=== PATIENT | male | born 1945 | race Hispanic/Latino ===

== ENCOUNTER → 2017-10-27 | Outpatient (CLI) | payer MEDICARE ==
[~2017-10-27] MED LIST: ADVAIR 250-501 EACH; ALLOPURINOL100 MG PO; ALLOPURINOL300 MG PO; CEFDINIR250 MG/5 M PO; CEFTRIAXONE SOD 1 GM VIAL ONE; COLCRYS0.6 MG PO; CRESTOR10 MG PO; DIGOXIN125 MCG PO; FISH OIL 1,0001 EAC2 PO; FUROSEMIDE40 MG PO; GLIPIZIDE5 MG PO; HYDROCHLOROTHIA25 MG PO; ISOSORBIDE MONO20 MG PO; JENTADUETO 2.51 EACH; LOSARTAN POTAS100 MG PO; LYRICA50 MG PO; METAXALONE800 MG PO; METOLAZONE5 MG PO; METOPROLOL TART50 MG PO; POTASSIUM CHLO10 ME1 PO; SERTRALINE HCL50 MG PO; TAMSULOSIN HCL0.4 MG PO; ULTRAM 50MG50 MG PO; XARELTO20 MG PO
[2017-10-27 10:28] LABS: BASOPHILS % 0.4 % (0.0-1.0); EOSINOPHILS # (AUTO) 0.2 (0.0-0.4); EOSINOPHILS % 2.2 % (0.0-6.0); HEMOGLOBIN 10.5 g/dL (14.0-18.0); LYMPHOCYTES # (AUTO) 1.8 (1.0-3.2); LYMPHOCYTES % 16.2 % (18.0-39.1); MEAN CORPUSCULAR HEMOGLOBIN 29.2 pg (28-32); MEAN CORPUSCULAR HGB CONC 32.8 g/dL (31-35); MEAN CORPUSCULAR VOLUME 89.1 fL (81-99); MONOCYTES # (AUTO) 1.1 (0.2-0.8); MONOCYTES % 9.5 % (4.4-11.3); NEUTROPHILS # (AUTO) 7.9 (2.1-6.9); NEUTROPHILS % 71.1 % (38.7-80.0); PLATELET COUNT 184 x10e3/uL (140-360); RED BLOOD COUNT 3.59 x10e6/uL (4.3-5.7); RED CELL DISTRIBUTION WIDTH 14.4 % (11.7-14.4)
[2017-10-27 10:47] LABS: ANION GAP 17.2 mmol/L (8-16); BLOOD UREA NITROGEN 19 mg/dL (7-26); BUN/CREATININE RATIO 19 (6-25); CALCIUM 9.7 mg/dL (8.4-10.2); CARBON DIOXIDE 28 mmol/L (22-29); CHLORIDE 101 mmol/L (98-107); CREATININE, SERUM 0.98 mg/dL (0.72-1.25); EST GLOMERULAR FILTRATION RATE > 60 ML/MIN (60-); GLUCOSE 152 mg/dL (74-118); POTASSIUM 4.2 mmol/L (3.5-5.1); SODIUM 142 mmol/L (136-145)
--- NOTE | 2017-10-27 11:18 | Diagnostic Imaging Report ---
PROCEDURE: Frontal and lateral views of the chest. COMPARISON: None. INDICATIONS: PRE OPERATIVE CHEST X-RAY FOR CIRCUMCISON FINDINGS: Lines/tubes: None. Lungs: The lungs are well inflated. Mild bibasilar atelectasis. A 1.8 cm nodular opacity is noted in the lung base on lateral view, possibly in the left lung base. There is no evidence of pneumonia or pulmonary edema. Pleura: There is no pleural effusion or pneumothorax. Heart and mediastinum: The heart and the mediastinum are normal. Aortic arch calcifications. Bones: No acute bony abnormality. Degenerative changes of the spine. Upper abdomen: No free air under the diaphragm. Abdominal aortic calcifications. IMPRESSION: No acute cardiopulmonary disease. A 1.8 cm nodular opacity in the lung base may represent a pulmonary nodule. Recommend further evaluation with chest CT without contrast. Dictated by: Kenny Ferreira M.D. on 10/27/2017 at 11:18 Electronically approved by: Kenny Ferreira M.D. on 10/27/2017 at 11:18
--- OUTSIDE RECORDS SUMMARY | 2017-11-02 09:26 | XMS REPORT ---
Author Author [facility] Address Unknown Phone Unavailable Care Team Providers Care Adjunct Faculty For Medical Terminology Name Role Phone WHITNEY BURKETT Unavailable Unavailable Problems This patient has no known problems. Allergies, Adverse Reactions, Alerts This patient has no known allergies or adverse reactions. Medications This patient has no known medications. Results Test Description Test Time Test Comments Text Results Atomic Results Result Comments CHEST 2 VIEWS [place] [address] Patient Name: SHIVANI STEWART MR #: [id number] : 1945 Age/Sex: 72/M Req #: [id number] [facility] Physician: Ordered by: WHITNEY BURKETT MD Report #: [id number] Location: OR Room/Bed: Procedure: [id number] DX/CHEST 2 VIEWS Exam Date: 10/27/17 Exam Time: 1025 REPORT STATUS: Signed PROCEDURE: Frontal and lateral views of the chest. COMPARISON: None. INDICATIONS: PRE OPERATIVE CHEST X-RAY FOR CIRCUMCISON FINDINGS: Lines/tubes: None. Lungs: The lungs are well inflated. Mild bibasilar atelectasis. A 1.8 cm nodular opacity is noted in the lung base on lateral view, possibly in the left lung base. There is no evidence of pneumonia or pulmonary edema. Pleura: There is no pleural effusion or pneumothorax. Heart and mediastinum: The heart and the mediastinum are normal. Aortic arch calcifications. Bones: No acute bony abnormality. Degenerative changes of the spine. Upper abdomen: No free air under the diaphragm. Abdominal aortic calcifications. IMPRESSION: No acute cardiopulmonary disease. A 1.8 cm nodular opacity in the lung base may represent a pulmonary nodule. Recommend further evaluation with chest CT without contrast. Dictated by: Kenny Garsia M.D. on 10/27/2017 at 11: 18 Electronically approved by: Kenny Garsia M.D. on 10/27/2017 at 11: 18 Dictated By: KENNY GARSIA MD [id number] Transcribed By: NAOMI on 10/27/17 1118 COPY TO: WHITNEY BURKETT MD
== END | disposition home or self-care (01) ==
LOC: RAD 05:00 → OR 11-02 09:24 → EDBD 11-02 11:00 → EDSTATUS 11-02 11:00
PROVIDERS: ATTEND Urology
DX: N47.1 Phimosis (principal); Z01.810 Encounter for preprocedural cardiovascular examination; Z01.812 Encounter for preprocedural laboratory examination; Z01.818 Encounter for other preprocedural examination
CPT/HCPCS: 36415; 71046; 80048; 82948; 85025; 93005; J0696

== ENCOUNTER 2017-11-02 11:12 | Inpatient (IN) | payer MEDICARE ==
[~2017-11-02] VITALS: Ht 170.2 cm; Wt 97.7 kg
[~2017-11-02 11:12] MED LIST changes: -CEFDINIR250 MG/5 M PO; -CEFTRIAXONE SOD 1 GM VIAL ONE; -FISH OIL 1,0001 EAC2 PO; -LYRICA50 MG PO; -POTASSIUM CHLO10 ME1 PO
[2017-11-02] MEDS ORDERED: SODIUM CHLORIDE 0.9% 500ML 500 ML IV STA ×2 (11:14→12:31)
[2017-11-02 11:26] LABS: BASOPHILS % 0.3 % (0.0-1.0); EOSINOPHILS # (AUTO) 0.4 (0.0-0.4); EOSINOPHILS % 2.9 % (0.0-6.0); HEMATOCRIT 35.1 % (38.2-49.6); HEMOGLOBIN 11.7 g/dL (14.0-18.0); LYMPHOCYTES # (AUTO) 1.8 (1.0-3.2); LYMPHOCYTES % 14.9 % (18.0-39.1); MEAN CORPUSCULAR HEMOGLOBIN 28.8 pg (28-32); MEAN CORPUSCULAR HGB CONC 33.3 g/dL (31-35); MEAN CORPUSCULAR VOLUME 86.5 fL (81-99); NEUTROPHILS % 73.4 % (38.7-80.0); PLATELET COUNT 292 x10e3/uL (140-360); RED BLOOD COUNT 4.06 x10e6/uL (4.3-5.7); RED CELL DISTRIBUTION WIDTH 14.2 % (11.7-14.4)
[2017-11-02 11:29] LABS: INR 1.24; PROTHROMBIN TIME 14.7 seconds (11.9-14.5)
[2017-11-02 11:30] LABS: PARTIAL THROMBOPLASTIN TIME 25.9 seconds (23.8-35.5)
[2017-11-02 11:38] LABS: ALBUMIN 3.5 g/dL (3.5-5.0); ANION GAP 16.2 mmol/L (8-16); CALCIUM 9.7 mg/dL (8.4-10.2); MAGNESIUM 1.3 MG/DL (1.3-2.1); POTASSIUM 4.2 mmol/L (3.5-5.1)
[2017-11-02 11:44] LABS: CREATINE KINASE MB 1.3 ng/mL (0-5.0)
--- NOTE | 2017-11-02 12:29 | Diagnostic Imaging Report ---
PROCEDURE: CHEST SINGLE (PORTABLE) COMPARISON: Patients [facility], DX, CHEST 2 VIEWS, 10/27/2017, 10:33. INDICATIONS: LOW BLOOD PRESSURE FINDINGS: LUNGS: No consolidations or edema. PLEURA: No effusions or pneumothorax. HEART \T\ MEDIASTINUM: The heart is within normal size-limits. BONES \T\ SOFT TISSUES: No acute findings. CONCLUSION: No acute thoracic abnormality. Darion Mederos D.O. Dictated by: Darion Mederos D.O. on 11/02/2017 at 12:23 Electronically approved by: Darion Mederos D.O. on 11/02/2017 at 12:29
[2017-11-02] MEDS ORDERED: ONDANSETRON HCL INJ 2 MG/ML VIAL IV PRN (13:30)
[2017-11-02 16:07] VITALS: BP 134/78
[2017-11-02] MEDS: SODIUM CHLORIDE 0.9% 1000ML 1,000 ML IV SCH (17:24)
[2017-11-02] MEDS ORDERED: METAXALONE 800 MG TAB PO PRN (17:45)
[2017-11-02] MEDS ORDERED: COLCHICINE 0.6 MG TAB PO PRN (17:45)
[2017-11-02] MEDS ORDERED: POTASSIUM CHLO10 ME1 PO (17:53)
[2017-11-02] MEDS ORDERED: LYRICA50 MG PO (17:53)
[2017-11-02] MEDS ORDERED: CEFDINIR250 MG/5 M PO (17:53)
[2017-11-02] MEDS ORDERED: DEXTROSE 50% SYRINGE 50 ML IV PRN (18:00)
[2017-11-02 18:08] VITALS: BP 134/78
--- NOTE | 2017-11-02 18:34 | Diagnostic Imaging Report ---
PROCEDURE:US RETROPERITONEAL ( KIDNEY ). COMPARISON:None. INDICATIONS:CKD TECHNIQUE: Wharton-scale and color sonographic images of the bilateral kidneys and bladder where obtained in transverse and longitudinal planes. FINDINGS: RIGHT KIDNEY: 10.7 x 5.0 x 5.1 cm, cortex 1.6 cm Cysts: None Solid masses: None Stones: None Hydronephrosis: None Echogenicity: Normal. LEFT KIDNEY: 12.2 x 5.6 x 4.7 cm, cortex 2.0 cm Cysts: None Solid masses: None Stones: None Hydronephrosis: None Echogenicity: Normal. Bladder: Normal. Prostate: 2.2 x 2.6 x 3.4 cm CONCLUSION: Normal kidneys. Dictated by: Amrik Alfonso M.D. on 11/02/2017 at 18:34 Electronically approved by: Amrik Alfonso M.D. on 11/02/2017 at 18:34
--- NOTE | 2017-11-02 18:43 | History and Physical ---
HISTORY OF PRESENT ILLNESS: A 72-year-old male with past medical history positive for chronic atrial fibrillation, chronic history of CHF, diabetes mellitus, chronic renal insufficiency. Came here to the hospital. Initially he was scheduled to have urological procedure by Dr. Gutierrez because of phimosis. Patient was hypotensive. The procedure had to be canceled. He was admitted to the emergency room and then he was found to be hypotensive. He was given IV fluids. He was in atrial fibrillation with rapid ventricular response. He was given beta blockers and heart rate was under control now, so patient is admitted to the hospital. REVIEW OF SYSTEMS: CARDIOVASCULAR: No chest pain or palpitation. RESPIRATORY: No shortness of breath and no cough. GASTROINTESTINAL: No nausea, vomiting or diarrhea. GENITOURINARY: No frequency or dysuria. ALLERGIES: PENICILLIN. SOCIAL HISTORY: He claims that he does not smoke and does not drink. PAST MEDICAL HISTORY: Chronic systolic CHF, chronic atrial fibrillation, diabetes mellitus type 2. Anemia of chronic disease secondary to chronic renal failure. PHYSICAL EXAMINATION: VITAL SIGNS: Blood pressure 134/78, temperature 95.5, heart rate 70 per minute, respirations 20 per minute, oxygen saturation 99%. HEART: Irregularly irregular heart rate. No murmur. No extra sounds. LUNGS: Clear bilaterally. ABDOMEN: Soft. EXTREMITIES: Show no evidence of cyanosis, edema or trauma. LABORATORY DATA: Blood work we have BMP sodium 137, potassium 4.2, chloride 97, CO2 28. BUN 54, creatinine 2.0. Glucose 240. On the CBC white blood count 12.2 hemoglobin 11.7, hematocrit 35.1, platelet count 202,000. PT 14.7. INR 1.24. PTT 25.9. AST 18, ALT 20. Total bilirubin 0.5, alkaline phosphatase 42. EKG showed atrial fibrillation with left anterior fascicular block. Inferior infarct which is an old one. There is no evidence of any ST segment elevation or depression. FINAL IMPRESSION: 1. Episode of hypotension which has resolved with IV fluids. 2. [id number] renal failure stage 3. 3. Chronic atrial fibrillation with rapid ventricular response. 4. Diabetes mellitus type 2 with chronic renal failure. 5. Acute anemia of chronic disease secondary to chronic renal insufficiency. 6. Chronic systolic congestive heart failure. PLAN OF TREATMENT: Continue current IV fluids. We are going to hold the Lasix and the Zaroxolyn for now. Continue holding the blood pressure medications as long as the systolic blood systolic blood pressure less than 110. Resume the rest of medications. We are going to hold the Xarelto because of the patient possibly going for the procedure. We are going to consult Dr. Amaya for cardiology, Dr. Erich Gutierrez for urology. Job#: [id number] KRISTIN
[2017-11-02 19:04] LABS: CREATINE KINASE MB 1.4 ng/mL (0-5.0)
[2017-11-02 20:00] VITALS: BP 130/62
[2017-11-02] MEDS: INSULIN REGULAR, HUMAN 100 UNIT/1 ML 3ML VIAL SQ SCH (20:42)
[2017-11-02] MEDS: SIMVASTATIN 40 MG TAB PO SCH (20:44)
[2017-11-02] MEDS: PREGABALIN 50 MG CAP PO SCH (20:44)
[2017-11-02] MEDS: CEFDINIR 300 MG CAP PO SCH (20:44)
--- NOTE | 2017-11-02 22:40 | Consultation ---
DATE OF CONSULTATION: November 02, 2017 CARDIAC CONSULTATION REASON FOR THE CONSULTATION: Hypertension, atrial fibrillation, multiple medical and vascular and cardiac issues. HISTORY: A 72-year-old gentleman, poor historian, is known with chronic atrial fibrillation, history of congestive heart failure, prior myocardial infarction, diabetes mellitus with end-organ damage, chronic renal insufficiency, coronary artery disease, status post myocardial infarction in the past. Status post peripheral angiogram and extensive stenting and thrombolysis in the past. Patient came for an outpatient for phimosis surgery. It was noted his blood pressure is very low. Patient telling me his blood pressure was low, but he got instruction to take all his medications. He took 4 tablets including Zaroxolyn, Lasix, and another blood pressure medication and he came. He was weak. His blood pressure was in the 80s, heart rates in his 70s. Surgery canceled, sent him to emergency room, given rescue IV fluids. Cardiac consultation is obtained. I visited this patient. He is one of the most poor historian gentleman. He does not know what his problems. We need to pull teeth to get information from him. Also, I checked his records in [facility] later on to get more information. Apparently, he is known with chronic atrial fibrillation, advanced coronary artery disease, history of congestive heart failure, prior myocardial infarction, regarding his peripheral angiogram, he had a procedure by Dr. Webber including thrombolysis and stenting of the lower extremities. He used to be in [facility]. He recently moved to this institution. He is followed by Dr. Gutierrez because of his urological problem, is considered for surgery and it was canceled. Patient is on multi pharmacy. REVIEW OF SYSTEMS CARDIAC: Easy fatigability, shortness of breath on exertion, no angina. Denies any shortness of breath on exertion. History of chronic atrial fibrillation. History of prior myocardial infarction. PULMONARY: Moderate shortness of breath on exertion. No orthopnea. Mo paroxysmal nocturnal dyspnea. GI: No hematemesis. No melena. : Difficulty because of urination. LOWER EXTREMITIES: Swelling at times tingling and numbness of the lower extremities. ENDOCRINE: Patient is diabetic of many years' duration. MUSCULAR: He got aches and pain "I got gout". GENERAL: No fever. No chills. SOCIAL HISTORY: Unfortunately, he smokes, but he smokes e-cigarettes now. He lives with his family. He does not drink alcohol. He stopped many years ago. He moved from [facility] to live here. PAST MEDICAL HISTORY 1. Chronic atrial fibrillation. 2. Chronic systolic heart failure. 3. Diabetes mellitus. 4. End-organ damage secondary to the diabetes mellitus. 5. Chronic renal insufficiency. 6. Prior myocardial infarctions. 7. Prior peripheral vascular disease and stenting. 8. Urological problems. 9. Gout. 10. "Arthritis." HOME MEDICATIONS: Long list including 1. Colchicine. 2. Allopurinol. 3. Insulin. 4. Glipizide. 5. Lyrica. 6. Skelaxin. 7. Flomax. 8. Ismo 60 mg a day. 9. Zocor 40 mg a day. 10. Metoprolol 75 mg twice a day. 11. Losartan 100 mg a day. 12. Digoxin 1.25 mg a day. ALLERGIES: PENICILLIN. OTHER HOME MEDICATIONS: Which not renewed are 1. Zaroxolyn 5 mg a day. 2. Lasix 40 mg twice a day. 3. Xarelto 20 mg daily. 4. Crestor 40 mg a day. 5. Potassium chloride 10 mEq a day. 6. Janumet 2.5 per 500 one tablet twice a day. FAMILY HISTORY: Strongly positive for diabetes mellitus, hypertension, and several other health problems. PHYSICAL EXAMINATION VITALS: Overweight gentleman. Height of 5'4". Weight of 210 lbs. Blood pressure 90/60. After 2 L of fluid, heart rate of only 60, regular rate of atrial fibrillation, respiratory rate of 18. HEENT: Pupils are reactive. NECK: No elevation of jugular venous pulsation. CHEST: Decreased air entry, but clear to auscultation and percussion. HEART: Irregularly irregular rate of atrial fibrillation. Normal 1st and 2nd heart sounds with ejection systolic murmur. ABDOMEN: Soft with good bowel sounds. No organomegaly. No abdominal bruits. EXTREMITIES: No cyanosis. No clubbing. No edema. Decreased peripheral pulses. In fact, they are not palpable at the feet and the popliteal. LAB DATA: BUN at 54, creatinine of 2, sodium of 137, potassium 4.2, glucose of 240. BNP of only 57. Cardiac enzymes are normal. White blood cell count of 12.3, hemoglobin 12.7, hematocrit of 35%, platelet count of 292,000. Digoxin 0.91. EKG showing atrial fibrillation, rate in the 70, nonspecific ST changes. IMPRESSIONS AND PLAN 1. Severe hypotension, most likely multi-pharmacy in addition to dehydration with over diuresis. 2. History of congestive heart failure, clinically seems to be compensated. 3. Chronic atrial fibrillation. 4. Diabetes mellitus with end-organ damage. 5. Chronic renal insufficiency . 6. Anemia. 7. Peripheral arterial vascular disease. Cardiac-antoine my recommendation will be as follows: 1. To hold digoxin since BUN and creatinine are elevated. 2. To hold his Lasix and Zaroxolyn. 3. To stop his Xarelto because of possible need for intervention on his urological issue. 4. To continue his other medications. 5. Precaution with volume replacement. 6. Precaution with losartan and metoprolol. 7. Supportive care. 8. Repeat the lab. 9. Checking echocardiogram. This was a lengthy visit. Patient seen at [facility]. His record reviewed after I went to [facility]. Total care for more than 2 hours including review of records, visiting with the patient, and following his data. Will follow patient's progression with you and would like to thank you for your kind referral. Job#: [id number] SARABJIT
[2017-11-03] VITALS: BP 128/68
[2017-11-03 04:00] VITALS: BP 135/76
[2017-11-03] MEDS: SODIUM CHLORIDE 0.9% 1000ML 1,000 ML IV SCH ×3 (05:10→19:30)
[2017-11-03 06:55] LABS: BASOPHILS % 0.4 % (0.0-1.0); EOSINOPHILS # (AUTO) 0.3 (0.0-0.4); EOSINOPHILS % 3.1 % (0.0-6.0); HEMOGLOBIN 11.2 g/dL (14.0-18.0); LYMPHOCYTES # (AUTO) 2.3 (1.0-3.2); LYMPHOCYTES % 22.4 % (18.0-39.1); MEAN CORPUSCULAR HEMOGLOBIN 28.7 pg (28-32); MEAN CORPUSCULAR HGB CONC 32.9 g/dL (31-35); MEAN CORPUSCULAR VOLUME 87.2 fL (81-99); MONOCYTES # (AUTO) 1.1 (0.2-0.8); MONOCYTES % 10.9 % (4.4-11.3); NEUTROPHILS # (AUTO) 6.4 (2.1-6.9); NEUTROPHILS % 62.7 % (38.7-80.0); PLATELET COUNT 250 x10e3/uL (140-360); RED CELL DISTRIBUTION WIDTH 14.1 % (11.7-14.4)
[2017-11-03 07:14] LABS: CREATINE KINASE 219 IU/L (30-200)
[2017-11-03 07:24] LABS: ALBUMIN 3.4 g/dL (3.5-5.0); ALBUMIN/GLOBULIN RATIO 0.9 (0.8-2.0); ANION GAP 11.9 mmol/L (8-16); CALCIUM 9.5 mg/dL (8.4-10.2); CHOL/HDL RATIO 6.3 (3.9-4.7); CREATININE, SERUM 1.28 mg/dL (0.72-1.25); POTASSIUM 3.9 mmol/L (3.5-5.1)
[2017-11-03] MEDS: INSULIN REGULAR, HUMAN 100 UNIT/1 ML 3ML VIAL SQ SCH ×4 (07:35→21:00)
[2017-11-03 07:45] LABS: THYROID STIMULATING HORMONE 1.553 uIU/mL (0.350-4.940)
[2017-11-03] MEDS: GLIPIZIDE 5 MG TAB PO SCH ×2 (07:45→16:00)
[2017-11-03] MEDS: METOPROLOL TARTRATE 50 MG TAB PO SCH ×2 (08:15→16:25)
[2017-11-03] MEDS: CEFDINIR 300 MG CAP PO SCH ×2 (08:15→22:16)
[2017-11-03] MEDS: PREGABALIN 50 MG CAP PO SCH ×3 (08:15→22:16)
[2017-11-03 08:37] VITALS: BP 137/83
[2017-11-03] MEDS ORDERED: COLCHICINE 0.6 MG TAB PO SCH (09:00)
[2017-11-03] MEDS ORDERED: ISOSORBIDE MONONITRATE 30 MG TAB CR PO SCH (09:00)
[2017-11-03] MEDS ORDERED: TAMSULOSIN HCL 0.4 MG CAP PO SCH (09:00)
[2017-11-03] MEDS ORDERED: ALLOPURINOL 300 MG TAB PO SCH (09:00)
[2017-11-03] MEDS ORDERED: LOSARTAN POTASSIUM 100 MG TAB PO SCH (09:00)
[2017-11-03] MEDS ORDERED: DIGOXIN 0.125 MG TAB PO SCH (09:00)
[2017-11-03] MEDS ORDERED: ISOSORBIDE MONONITRATE 20 MG TAB PO SCH (09:00)
[2017-11-03 12:34] VITALS: BP 127/90
[2017-11-03 16:00] VITALS: BP 108/65
--- NOTE | 2017-11-03 17:30 | Discharge Summary ---
HOSPITAL COURSE: A 72-year-old male with past medical history positive for chronic atrial fibrillation, history of congestive heart failure which is systolic and diastolic in nature, history of diabetes and chronic renal insufficiency, came to the hospital because he was scheduled to have a urological procedure by Dr. Chan apparently because of phimosis. Patient was found to be hypotensive. Then, he had supraventricular tachycardia. He was admitted to the hospital, given IV fluids. He went to sinus rhythm. Dr. Amaya was consulted from the cardiology point of view. He recommended patient to discontinue IV fluids and able to be discharged unless he is going to have surgery. If Dr. Chan, urology, that originally was supposed to do the phimosis surgery is okay with that, he can go home and have the surgery done as an outpatient. PHYSICAL EXAMINATION: HEART: Regular rhythm. Normal S1, S2 sounds. LUNGS: Clear bilaterally. ABDOMEN: Soft. EXTREMITIES: Show no evidence of cyanosis, edema, or trauma. FINAL IMPRESSION 1. Episode of hypotension, which resolved after intravenous fluids were given. 2. Acute on chronic renal failure, stage 3. 3. Paroxysmal atrial fibrillation, now in normal sinus rhythm. 4. Diabetes mellitus type 2 with chronic renal failure. 5. Anemia of chronic disease secondary to chronic renal failure. 6. Chronic systolic and diastolic congestive heart failure. PLAN OF TREATMENT: We are going to continue with current medication regimen that he was taking before, which include; 1. Continue Lasix 40 mg twice a day. 2. Continue Zaroxolyn 2.5 mg once a day. 3. Continue with glipizide 5 mg twice a day. 4. Colchicine 0.6 mg daily. 5. Losartan 100 mg daily. 6. Metoprolol 75 mg twice a day. 7. Isosorbide mononitrate 60 mg daily. 8. Continue Flomax 0.4 mg daily. 9. Metolazone 800 mg daily. 10. Continue Zocor 40 mg daily. 11. Cefdinir 600 mg twice a day. 12. Lyrica 50 mg 3 times a day. 13. Allopurinol 300 mg daily. Patient is going to go home today if okay with Dr. Amaya, who is apparently okay to discharge and we are going to check with Dr. Chan, urology, to see if he wants the patient to have urological procedure done for severe phimosis prior to go home. HOLLY RODAS MD Job#: [id number] PKU
[2017-11-03] MEDS: SIMVASTATIN 40 MG TAB PO SCH (22:16)
[2017-11-04] VITALS: BP 147/73
[2017-11-04 04:00] VITALS: BP 119/66
[2017-11-04] MEDS: SODIUM CHLORIDE 0.9% 1000ML 1,000 ML IV SCH (05:30)
[2017-11-04] MEDS: INSULIN REGULAR, HUMAN 100 UNIT/1 ML 3ML VIAL SQ SCH (07:51)
[2017-11-04 07:53] VITALS: BP 144/77
--- NOTE | 2017-11-04 20:33 | Discharge Summary ---
The patient is a 72-year-old male with past medical history positive for hypertension and diabetes, history of chronic systolic and diastolic CHF. Apparently he was going to have a urological procedure done which was phimosis repair and the patient came to the hospital for an elective procedure and then he started having some hypotension. Patient was admitted to the hospital. IV fluids were given and then he had episode of supraventricular tachycardia which resolved. Patient was on IV fluids. Symptoms improved and the patient was discharged home. PHYSICAL EXAMINATION HEART: Regular rhythm. No murmur. No extra sounds. LUNGS: Clear bilaterally. ABDOMEN: Soft. EXTREMITIES: Show no evidence of cyanosis, edema or trauma. FINAL IMPRESSION: 1. Episode of hypotension. 2. Episode of supraventricular tachycardia. 3. Chronic diastolic congestive heart failure, compensated right now. 4. History of paroxysmal atrial fibrillation. 5. Diabetes mellitus type 2 with diabetic neuropathy. PLAN OF TREATMENT: The patient has been discharged home with instructions to continue his current medication regimen. He is going to reschedule the phimosis procedure with Dr. Chan, urologist, as an outpatient. HOLLY RODAS MD Job#: [id number]
[2017-11-16] MEDS ORDERED: FISH OIL 1,0001 EAC2 PO (12:52)
== END 2017-11-04 11:05 | disposition home or self-care (01) | DRG 312 ==
LOC: ER 11:12 → ERHOLD 14:39 → MED/SURG3 15:05
PROVIDERS: ADMIT Internal Medicine; ATTEND Internal Medicine
DX: I95.2 Hypotension due to drugs (principal); N17.9 Acute kidney failure, unspecified; E11.22 Type 2 diabetes mellitus with diabetic chronic kidney disease; I13.0 Hypertensive heart and chronic kidney disease with heart failure and stage 1 through stage 4 chronic kidney disease, or unspecified chronic kidney disease; I50.32 Chronic diastolic (congestive) heart failure; I48.0 Paroxysmal atrial fibrillation; E11.40 Type 2 diabetes mellitus with diabetic neuropathy, unspecified; I47.1 Supraventricular tachycardia; M10.9 Gout, unspecified; E86.0 Dehydration; E66.3 Overweight; N18.3 Chronic kidney disease, stage 3 (moderate); T46.5X5A Adverse effect of other antihypertensive drugs, initial encounter; D63.1 Anemia in chronic kidney disease; I73.9 Peripheral vascular disease, unspecified; I25.10 Atherosclerotic heart disease of native coronary artery without angina pectoris; F17.290 Nicotine dependence, other tobacco product, uncomplicated; M19.90 Unspecified osteoarthritis, unspecified site; Z79.4 Long term (current) use of insulin; Y92.009 Unspecified place in unspecified non-institutional (private) residence as the place of occurrence of the external cause; I25.2 Old myocardial infarction; Z95.820 Peripheral vascular angioplasty status with implants and grafts; Z53.09 Procedure and treatment not carried out because of other contraindication; Z79.01 Long term (current) use of anticoagulants; Z88.0 Allergy status to penicillin; Z68.33 Body mass index [BMI] 33.0-33.9, adult
CPT/HCPCS: 36415; 71045; 71046; 76770; 80048; 80053; 80061; 80162; 82550; 82553; 82948; 83605; 83735; 83880; 84443; 84484; 85025; 85610; 85730; 93005; 93306; 99284; J7030

== ENCOUNTER → 2017-11-21 | Day surgery (SDC) | payer MEDICARE ==
[~2017-11-21] MED LIST changes: +BUPIVACAINE 0.25% 30ML SDV INJ ONE; +CEFDINIR250 MG/5 M PO; +CEFTRIAXONE SOD 1 GM VIAL ONE; +DEXAMETHASONE SOD PHOS INJ 4 MG/ML VIAL ONE; +FENTANYL CITRATE/PF 100MCG/2 ML INJ ONE; +FISH OIL 1,0001 EAC2 PO; +LIDOCAINE HCL 2% LOCAL INJ 5 ML SDV VIAL INJ ONE; +LYRICA50 MG PO; +ONDANSETRON HCL INJ 2 MG/ML VIAL ONE; +POTASSIUM CHLO10 ME1 PO; +PROPOFOL IV EMULSION 10 MG/ML 20 ML VIAL ONE; +SEVOFLURANE INHAL SOLN 250 ML PEN BTL ONE
--- OUTSIDE RECORDS SUMMARY | 2017-11-21 09:54 | XMS REPORT | Continuity of Care Document ---
Author Author [facility] Organization [facility] Address [address] [place] [address] Phone Unavailable Care Team Providers Care Investment Analyst Name Role Phone BETTY HIDALGO DO PCP Insurance Providers Guarantor Shivani Kuo Address [address] [place] [address] Email [email or web address] Payer [facility] Policy Number [id number] Subscriber's Name Shivani Kuo Relationship 18 Self / Same As Patient Group Number [id number] Group Name RETIRED Effective Date 17 Payer [facility] Policy Number [id number] Subscriber's Name Shivani Kuo Relationship 18 Self / Same As Patient Group Name RETIRED Effective Date 17 Advance Directives Directive Response Recorded Date/Time Does the patient have an advance directive? No 11/02/17 6:10pm If yes, is advance directive on file with [facility]? No 11/02/17 6:10pm If not on file with [facility] will patient provide a copy? Yes 11/02/17 6:10pm Do you have a Directive to Physician? No 11/02/17 11:27am Do you have a Medical Power of Customer Assistance Representative? No 11/02/17 11:27am Do you have an out of hospital Do Not Resuscitate Order? No 11/02/17 11:27am Do you have any special needs we should be aware of? No 11/02/17 11:27am Do you have a support person here with you today? Yes 11/02/17 11:27am Did patient receive Notice of Privacy Practices? Yes 11/02/17 11:27am Did patient receive patient rights and responsibilities? Yes 11/02/17 11:27am Problems Medical Problem Onset Date Status Hypotension Unknown Medications Current Home Medications Medication Dose Units Route Directions Days Qty Instructions Start Date Allopurinol 300 Mg Tablet 300 Mg Oral Daily 30 Tab Cefdinir 250 Mg/5 Ml Susp.recon 300 Mg Oral Twice A Day Colchicine (Colcrys) 0.6 Mg Tablet 0.6 Mg Oral Daily 30 Tab Digoxin 125 Mcg Tablet 0.125 Mg Oral Daily 30 Tab Furosemide 40 Mg Tablet 40 Mg Oral Every 12 Hours 30 Tab Glipizide 5 Mg Tablet 5 Mg Oral Twice A Day Isosorbide Mononitrate 20 Mg Tablet 60 Mg Oral Daily 30 Tab Linagliptin/Metformin Hcl (Jentadueto 2.5 Mg-500 Mg Tab) 1 Each Tablet Twice A Day Losartan Potassium 100 Mg Tablet 100 Mg Oral Daily Metaxalone 800 Mg Tablet 800 Mg Oral As Needed Metolazone 5 Mg Tablet 2.5 Mg Oral Daily 30 Tab Metoprolol Tartrate 50 Mg Tablet 75 Mg Oral Twice A Day Potassium Chloride 10 Meq Tab.er.prt 10 Meq Oral Daily Pregabalin (Lyrica) 50 Mg Cap 50 Mg Oral Three Times A Day 30 Tab Rivaroxaban (Xarelto) 20 Mg Tablet 20 Mg Oral Daily Rosuvastatin Calcium (Crestor) 10 Mg Tab 40 Mg Oral Daily THERAPEUTICALLY SUBSTITUTED WITH SIMVASTATIN 40MG Tamsulosin Hcl 0.4 Mg Cap.er.24h 0.4 Mg Oral Daily Past Home Medications Medication Directions Ordered Status Allopurinol 100 Mg Tablet, 100 Mg Oral Daily Discontinued Fluticasone/Salmeterol (Advair 250-50 Diskus) 1 Each Disk.w.dev, Discontinued Hydrochlorothiazide 25 Mg Tablet, 25 Mg Oral Daily Discontinued Sertraline Hcl 50 Mg Tablet, 50 Mg Oral Daily Discontinued Tramadol Hcl (Ultram 50MG*) 50 Mg Tab, 50 Mg Oral As Needed Discontinued Social History Social History Problem Response Recorded Date/Time Onset Date Status Hx Psychiatric Problems No 11/02/2017 6:10pm Not Applicable Not Applicable Hx Eating Disorder No 11/02/2017 6:10pm Not Applicable Not Applicable Hx Substance Use Disorder No 11/02/2017 6:10pm Not Applicable Not Applicable Hx Depression No 11/02/2017 6:10pm Not Applicable Not Applicable Hx Alcohol Use No 11/02/2017 6:10pm Not Applicable Not Applicable Hx Substance Use Treatment No 11/02/2017 6:10pm Not Applicable Not Applicable Hx Physical Abuse No 11/02/2017 6:10pm Not Applicable Not Applicable Smoking Status Start Date Stop Date Former smoker Hospital Discharge Instructions No hospital discharge instruction information available. Plan of Care Discharge Date 11/04/17 11:05am Disposition HOME, SELF-CARE Instructions/Education Provided Phimosis Prescriptions See Medication Section Additional Instructions/Education follow up with PCP in 1 week Functional Status Query Response Date Recorded Assistive Devices None November 02, 2017 6:08pm Ambulation Ability Independent November 02, 2017 6:08pm Toileting Ability Independent November 03, 2017 5:18am Allergies, Adverse Reactions, Alerts Allergen Type Severity Reaction Status Last Updated penicillin Allergy Mild rash Active 12/04/15 Immunizations No immunization information available. Vital Signs Acute Vital Signs Vital Response Date/Time Temperature (Fahrenheit) 96.0 degrees F (97.6 - 99.5) 11/04/2017 7:53am Pulse Pulse Rate (adult) 60 bpm (60 - 90) 11/04/2017 7:53am Respiratory Rate 18 bpm (12 - 24) 11/04/2017 7:53am Blood Pressure 144/77 mm Hg 11/04/2017 7:53am Height 5 ft 7 in 11/02/2017 11:14am Weight 215.31 lb 11/04/2017 5:20am Body Mass Index 33.7 kg/m^2 11/04/2017 5:20am Results Laboratory Results Test Name Result Units Flags Reference Collection Date/Time Result Date/ Time Comments White Blood Count 10.21 x10e3/uL 4.8-10.8 11/03/2017 6:40am 11/03/2017 7:00am Red Blood Count 3.90 x10e6/uL L 4.3-5.7 11/03/2017 6:40am 11/03/2017 7: 00am Hemoglobin 11.2 g/dL L 14.0-18.0 11/03/2017 6:40am 11/03/2017 7:00am Hematocrit 34.0 % L 38.2-49.6 11/03/2017 6:40am 11/03/2017 7:00am Mean Corpuscular Volume 87.2 fL 81-99 11/03/2017 6:40am 11/03/2017 7: 00am Mean Corpuscular Hemoglobin 28.7 pg 28-32 11/03/2017 6:40am 11/03/2017 7:00am Mean Corpuscular Hemoglobin Concent 32.9 g/dL 31-35 11/03/2017 6:40am 11/03/2017 7:00am Red Cell Distribution Width 14.1 % 11.7-14.4 11/03/2017 6:40am 2017 7:00am Platelet Count 250 x10e3/uL 140-360 11/03/2017 6:40am 11/03/2017 7: 00am Neutrophils (%) (Auto) 62.7 % 38.7-80.0 11/03/2017 6:40am 11/03/2017 7: 00am Lymphocytes (%) (Auto) 22.4 % 18.0-39.1 11/03/2017 6:40am 11/03/2017 7: 00am Monocytes (%) (Auto) 10.9 % 4.4-11.3 11/03/2017 6:40am 11/03/2017 7: 00am Eosinophils (%) (Auto) 3.1 % 0.0-6.0 11/03/2017 6:40am 11/03/2017 7: 00am Basophils (%) (Auto) 0.4 % 0.0-1.0 11/03/2017 6:40am 11/03/2017 7:00am IM GRANULOCYTES % 0.5 % 0.0-1.0 11/03/2017 6:40am 11/03/2017 7:00am Neutrophils # (Auto) 6.4 2.1-6.9 11/03/2017 6:40am 11/03/2017 7:00am Lymphocytes # (Auto) 2.3 1.0-3.2 11/03/2017 6:40am 11/03/2017 7:00am Monocytes # (Auto) 1.1 H 0.2-0.8 11/03/2017 6:40am 11/03/2017 7:00am Eosinophils # (Auto) 0.3 0.0-0.4 11/03/2017 6:40am 11/03/2017 7:00am Basophils # (Auto) 0.0 0.0-0.1 11/03/2017 6:40am 11/03/2017 7:00am Absolute Immature Granulocyte (auto 0.05 x10e3/uL 0-0.1 11/03/2017 6: 40am 11/03/2017 7:00am Prothrombin Time 14.7 seconds H 11.9-14.5 11/02/2017 10:50am 11/02/2017 11:31am Prothromb Time International Ratio 1.24 11/02/2017 10:50am 2017 11:31am Oral Anticoagulant Therapy INR Values: 1. Low Intensity Therapy 1.5 - 2.0 2. Moderate Intensity Therapy 2.0 - 3.0 3. High Intensity Therapy(1) 2.5 - 3.5 4. High Intensity Therapy(2) 3.0 - 4.0 5. Panic Value INR > 5.0 Activated Partial Thromboplast Time 25.9 seconds 23.8-35.5 11/02/2017 10 :50am 11/02/2017 11:31am Sodium Level 136 mmol/L 136-145 11/03/2017 6:40am 11/03/2017 7:30am Potassium Level 3.9 mmol/L 3.5-5.1 11/03/2017 6:40am 11/03/2017 7:30am Chloride Level 101 mmol/L 98-107 11/03/2017 6:40am 11/03/2017 7:30am Carbon Dioxide Level 27 mmol/L 22-29 11/03/2017 6:40am 11/03/2017 7: 30am Anion Gap 11.9 mmol/L 8-16 11/03/2017 6:40am 11/03/2017 7:30am Blood Urea Nitrogen 39 mg/dL H 7-26 11/03/2017 6:40am 11/03/2017 7:30am Creatinine 1.28 mg/dL H 0.72-1.25 11/03/2017 6:40am 11/03/2017 7:30am BUN/Creatinine Ratio 30 H 6-25 11/03/2017 6:40am 11/03/2017 7:30am Estimat Glomerular Filtration Rate 56 ML/MIN L 60- 11/03/2017 6:40am 7:30am Ranges were taken from the National Kidney Disease Education Program and the National Kidney Foundation literature. Reference ranges: 60 or greater: Normal 16-59 (for 3 consecutive months): Chronic kidney disease 15 or less: Kidney failure Glucose Level 233 mg/dL H 74-118 11/03/2017 6:40am 11/03/2017 7:30am Calcium Level 9.5 mg/dL 8.4-10.2 11/03/2017 6:40am 11/03/2017 7:30am Bedside Glucose 247 mg/dL H 70-120 11/03/2017 7:35pm 11/03/2017 8:12pm Meter ID: [id number] Lactic Acid Level 15.2 MG/DL 4.5-19.8 11/02/2017 6:34pm 11/02/2017 7: 00pm Magnesium Level 1.3 MG/DL 1.3-2.1 11/02/2017 10:50am 11/02/2017 11: 41am Total Bilirubin 0.3 mg/dL 0.2-1.2 11/03/2017 6:40am 11/03/2017 7:30am Aspartate Amino Transf (AST/SGOT) 14 IU/L 5-34 11/03/2017 6:40am 2017 7:30am Alanine Aminotransferase (ALT/SGPT) 17 IU/L 0-55 11/03/2017 6:40am 7:30am Total Protein 7.0 g/dL 6.5-8.1 11/03/2017 6:40am 11/03/2017 7:30am Albumin 3.4 g/dL L 3.5-5.0 11/03/2017 6:40am 11/03/2017 7:30am Globulin 3.6 g/dL H 2.3-3.5 11/03/2017 6:40am 11/03/2017 7:30am Albumin/Globulin Ratio 0.9 0.8-2.0 11/03/2017 6:40am 11/03/2017 7: 30am Alkaline Phosphatase 44 IU/L 40-150 11/03/2017 6:40am 11/03/2017 7: 30am Triglycerides Level 375 MG/DL H 0-149 11/03/2017 6:40am 11/03/2017 7: 30am Cholesterol Level 126 MD/DL 0-199 11/03/2017 6:40am 11/03/2017 7:30am Less than 200 mg/dL Low Risk 201 - 239 mg/dL Borderline Risk 240 mg/dl and greater High Risk LDL Cholesterol 31 MG/DL L 60-130 11/03/2017 6:40am 11/03/2017 7:30am HDL Cholesterol 20 MG/DL L 40-60 11/03/2017 6:40am 11/03/2017 7:30am Cholesterol/HDL Ratio 6.3 H 3.9-4.7 11/03/2017 6:40am 11/03/2017 7: 30am B-Type Natriuretic Peptide 57.4 pg/mL 0-100 11/02/2017 10:50am 2017 11:50am Creatine Kinase 219 IU/L # H 30-200 11/03/2017 6:40am 11/03/2017 7:17am Creatine Kinase MB 2.20 ng/mL 0-5.0 11/03/2017 6:40am 11/03/2017 7: 30am Troponin I < 0.001 ng/mL 0-0.300 11/03/2017 6:40am 11/03/2017 7:30am Thyroid Stimulating Hormone (TSH) 1.553 uIU/mL 0.350-4.940 11/03/2017 6: 40am 11/03/2017 7:48am Digoxin Level 0.91 ng/mL 0.8-2.0 11/02/2017 10:50am 11/02/2017 3:40pm Procedures Procedure Status Date Provider(s) Circumcision Active 11/02/17 WHITNEY BURKETT MD X-ray of chest, two views Active 10/27/17 WHITNEY BURKETT MD Ultrasound, renal Active 11/02/17 HOLLY RODAS MD Encounters Encounter Location Arrival/Admit Date Discharge/Depart Date Attending Provider Discharged Inpatient [facility] 11/02/17 2:39pm 11/04/17 11:05am HOLLY RODAS MD Registered Surgical Day Care [facility] 11/02/17 9:24am WHITNEY BURKETT MD
--- NOTE | 2017-11-21 14:20 | Operative Report ---
DATE OF PROCEDURE: November 21, 2017 PREOPERATIVE DIAGNOSIS: Phimosis. POSTOPERATIVE DIAGNOSIS: Phimosis. OPERATIVE PROCEDURE PERFORMED: Circumcision. ANESTHESIA: General anesthesia. ESTIMATED BLOOD LOSS: Minimal. INDICATIONS: Mr. Issac Kuo is a 72-year-old gentleman with a long history of recurrent balanitis and subsequent phimosis. He also has a history of diabetes mellitus. He now presents for definitive surgical management of this problem. PROCEDURE IN DETAIL: The patient was brought into the operating room and placed in the supine position. After administration of general anesthesia, he was prepped and draped in the usual sterile fashion. With the preputial skin in its normal anatomical position, a circumferential incision was made at the level of the mack. The foreskin was then retracted with mild to moderate difficulty, and a 2nd parallel circumferential incision was made approximately 1 cm proximal to the mack. The intervening tissue between these 2 incisions was removed, and hemostasis was obtained using the electrocautery device. Once adequate hemostasis was secured, the skin edges were reapproximated and closed using interrupted chromic sutures. The wound was then cleaned and dried and covered with Mastisol and circumferential Tegaderm dressing. A penile block was performed using 0.25% plain Marcaine. Anesthesia was reversed, and the patient was transferred to a bed and taken to the postanesthesia care unit in good condition. Of note, the needle and instrument counts were correct at the conclusion of the case. Job#: [id number]
== END | disposition home or self-care (01) ==
LOC: OR 09:51
PROVIDERS: ATTEND Urology
DX: N47.1 Phimosis (principal); N47.6 Balanoposthitis; N32.0 Bladder-neck obstruction; I25.10 Atherosclerotic heart disease of native coronary artery without angina pectoris; G47.33 Obstructive sleep apnea (adult) (pediatric); I25.2 Old myocardial infarction; I48.91 Unspecified atrial fibrillation; E11.22 Type 2 diabetes mellitus with diabetic chronic kidney disease; I12.9 Hypertensive chronic kidney disease with stage 1 through stage 4 chronic kidney disease, or unspecified chronic kidney disease; N18.9 Chronic kidney disease, unspecified; Z79.02 Long term (current) use of antithrombotics/antiplatelets
CPT/HCPCS: 36415; 54161; 82948; 88304; J0696; J1100; J2001; J2405

== ENCOUNTER 2018-06-23 15:49 | Emergency (ER) | payer MEDICARE ==
[~2018-06-23] VITALS: Ht 170.2 cm; Wt 97.5 kg
[~2018-06-23 15:49] MED LIST changes: -BUPIVACAINE 0.25% 30ML SDV INJ ONE; -CEFTRIAXONE SOD 1 GM VIAL ONE; -DEXAMETHASONE SOD PHOS INJ 4 MG/ML VIAL ONE; -FENTANYL CITRATE/PF 100MCG/2 ML INJ ONE; -LIDOCAINE HCL 2% LOCAL INJ 5 ML SDV VIAL INJ ONE; -ONDANSETRON HCL INJ 2 MG/ML VIAL ONE; -PROPOFOL IV EMULSION 10 MG/ML 20 ML VIAL ONE; -SEVOFLURANE INHAL SOLN 250 ML PEN BTL ONE
--- OUTSIDE RECORDS SUMMARY | 2018-06-23 15:53 | XMS REPORT ---
Author Author [facility] Address Unknown Phone Unavailable Care Team Providers Care Public Speaker Name Role Phone HOLLY RODAS Unavailable Unavailable Hermelinda BURKETT Unavailable Unavailable Problems This patient has no known problems. Allergies, Adverse Reactions, Alerts This patient has no known allergies or adverse reactions. Medications This patient has no known medications. Results Test Description Test Time Test Comments Text Results Atomic Results Result Comments CHEST SINGLE (PORTABLE) [facility] [address] [place] [address] Patient Name: SHIVANI STEWART MR #: [id number] : 1945 Age/Sex: 72/M Req #: [id number] Adm Physician: Ordered by: JERI DAS COMMERCIAL MANAGER Report #: [id number] Location: ER Room/Bed: Procedure: [id number] DX/CHEST SINGLE (PORTABLE) Exam Date: 11/02/17 Exam Time: 1130 REPORT STATUS: Signed PROCEDURE: CHEST SINGLE (PORTABLE) COMPARISON: [facility], DX, CHEST 2 VIEWS, 10/27/2017, 10:33. INDICATIONS: LOW BLOOD PRESSURE FINDINGS: LUNGS: No consolidations or edema. PLEURA: No effusions or pneumothorax. HEART T MEDIASTINUM: The heart is within normal size-limits. BONES T SOFT TISSUES: No acute findings. CONCLUSION: No acute thoracic abnormality. Boo Mederos D.O. Dictated by: Boo Mederos D.O. on 11/02/2017 at 12:23 Electronically approved by: Boo Mederos D.O. on 11/02/2017 at 12:29 Dictated By: BOO MEDEROS DO 1229 Transcribed By: NAOMI on 11/02/17 1229 COPY TO: JERI DAS COMMERCIAL MANAGER US RENAL RETROPERITONEAL COMP [place] [address] Patient Name: SHIVANI STEWART MR #: [id number] : 1945 Age/Sex: 72/M Req #: [id number] Adm Physician: HOLLY RODAS MD Ordered by: HOLLY RODAS MD Report #: [id number] Location: [place] [address] Room/Bed: [facility] Procedure: [id number] US/US RENAL RETROPERITONEAL COMP Exam Date: 11/02/17 Exam Time: 1801 REPORT STATUS: Signed PROCEDURE: US RETROPERITONEAL ( KIDNEY ). COMPARISON: None. INDICATIONS: CKD TECHNIQUE: Wharton-scale and color sonographic images of the bilateral kidneys and bladder where obtained in transverse and longitudinal planes. FINDINGS: RIGHT KIDNEY: 10.7 x 5.0 x 5.1 cm, cortex 1.6 cm Cysts: None Solid masses: None Stones: None Hydronephrosis: None Echogenicity: Normal. LEFT KIDNEY: 12.2 x 5.6 x 4.7 cm, cortex 2.0 cm Cysts: None Solid masses: None Stones: None Hydronephrosis: None Echogenicity: Normal. Bladder: Normal. Prostate: 2.2 x 2.6 x 3.4 cm CONCLUSION: Normal kidneys. Dictated by: Mike Cantrell M.D. on 11/02/2017 at 18:34 Electronically approved by: Mike Cantrell M.D. on 11/02/2017 at 18:34 Dictated By: MIKE CANTRELL MD 33 Transcribed By: NAOMI on 11/02/171833 COPY TO: HOLLY RODAS MD CHEST 2 VIEWS [place] [address] Patient Name: SHIVANI STEWART MR #: [id number] : 1945 Age/Sex: 72/M Req #: [id number] Adm Physician: Ordered by: WHITNEY BURKETT MD Report #: [id number] Location: OR Room/Bed: Procedure: [id number] DX/CHEST 2 VIEWS Exam Date: 10/27/17 Exam [...] by: Kenny Garsia M.D. on 10/27/2017 at 11:18 Electronically approved by: Kenny Garsia M.D. on 10/27/2017 at 11:18 Dictated By: KENNY GARSIA MD 1118 Transcribed By: NAOMI on 10/27/17 1118 COPY TO: WHITNEY BURKETT MD
[2018-06-23 16:34] LABS: BASOPHILS % 0.3 % (0.0-1.0); EOSINOPHILS # (AUTO) 0.2 (0.0-0.4); EOSINOPHILS % 1.5 % (0.0-6.0); HEMATOCRIT 35.1 % (38.2-49.6); LYMPHOCYTES # (AUTO) 1.6 (1.0-3.2); LYMPHOCYTES % 12.8 % (18.0-39.1); MEAN CORPUSCULAR HEMOGLOBIN 26.1 pg (28-32); MEAN CORPUSCULAR HGB CONC 31.3 g/dL (31-35); MEAN CORPUSCULAR VOLUME 83.2 fL (81-99); MONOCYTES # (AUTO) 1.3 (0.2-0.8); MONOCYTES % 10.8 % (4.4-11.3); NEUTROPHILS % 74.1 % (38.7-80.0); PLATELET COUNT 213 x10e3/uL (140-360); RED BLOOD COUNT 4.22 x10e6/uL (4.3-5.7); RED CELL DISTRIBUTION WIDTH 17.1 % (11.7-14.4)
--- NOTE | 2018-06-23 16:34 | Diagnostic Imaging Report ---
Examination: Single AP view of the chest. COMPARISON: None. INDICATION: Chest pain DISCUSSION: Lines/tubes: None. Lungs: The lungs are well inflated and clear. No pneumonia or pulmonary edema. Pleura: No pleural effusion or pneumothorax. Heart and mediastinum: Heart enlarged. Bones and soft tissues: No acute bony abnormalities. IMPRESSION: 1. No acute cardiopulmonary abnormalities. Signed by: Dr. Clyde Garcia M.D. on 06/23/2018 4:30 PM
[2018-06-23 16:43] LABS: INR 1.43; PROTHROMBIN TIME 18.6 seconds (11.9-14.5)
[2018-06-23 16:44] LABS: PARTIAL THROMBOPLASTIN TIME 42.2 seconds (23.8-35.5)
[2018-06-23 16:51] LABS: ANION GAP 18.2 mmol/L (8-16); CALCIUM 9.2 mg/dL (8.4-10.2); CREATININE, SERUM 1.32 mg/dL (0.72-1.25); MAGNESIUM 1.9 MG/DL (1.3-2.1); POTASSIUM 3.2 mmol/L (3.5-5.1)
[2018-06-23 16:58] LABS: CREATINE KINASE MB 0.8 ng/mL (0-5.0)
[2018-06-23] MEDS ORDERED: NAPROXEN250 MG PO (17:58)
[2018-06-23] MEDS ORDERED: LEVOTHYROXINE50 MCG PO (17:58)
[2018-06-23] MEDS ORDERED: CIALIS2.5 MG PO (17:58)
[2018-06-23] MEDS ORDERED: PROAIR HFA INH8.5 GM INH (17:58)
[2018-06-23] MEDS ORDERED: NIACIN500 MG PO (17:58)
[2018-06-23] MEDS ORDERED: DIAZEPAM5 MG PO (17:58)
[2018-06-23] MEDS ORDERED: CYCLOBENZAPRINE10 MG PO (17:58)
[2018-06-23] MEDS ORDERED: TIZANIDINE HCL4 M1 PO (18:15)
[2018-06-23] MEDS ORDERED: BACLOFEN10 MG PO (18:30)
== END 2018-06-23 19:49 | disposition home or self-care (01) ==
LOC: EDBD 15:49 → ER 15:49
DX: M54.2 Cervicalgia (principal); S16.1XXA Strain of muscle, fascia and tendon at neck level, initial encounter; I48.2 Chronic atrial fibrillation; E11.65 Type 2 diabetes mellitus with hyperglycemia; I10 Essential (primary) hypertension; R94.31 Abnormal electrocardiogram [ECG] [EKG]; E78.5 Hyperlipidemia, unspecified; M10.9 Gout, unspecified
CPT/HCPCS: 36415; 71045; 80048; 82150; 82550; 82553; 83690; 83735; 84484; 85025; 85610; 85730; 93005; 99284

== ENCOUNTER 2018-11-01 09:25 | Inpatient (IN) | payer MEDICARE ==
[~2018-11-01] VITALS: Ht 170.2 cm; Wt 101.7 kg
[~2018-11-01 09:25] MED LIST changes: +BACLOFEN10 MG PO; +CIALIS2.5 MG PO; +CYCLOBENZAPRINE10 MG PO; +DIAZEPAM5 MG PO; +LEVOTHYROXINE50 MCG PO; +NAPROXEN250 MG PO; +NIACIN500 MG PO; +PROAIR HFA INH8.5 GM INH; +TIZANIDINE HCL4 M1 PO
[2018-11-01] MEDS ORDERED: FUROSEMIDE INJ 10 MG/ML 4 ML VIAL IV ONE (09:30)
[2018-11-01 09:54] LABS: ABG HCO3 34 mmol/L (23-28); ABG PCO2 46 mmHg (41-51); ABG PH 7.48 (7.31-7.41); ABG PO2 72 mmHg (80-105)
[2018-11-01 10:00] LABS: BASOPHILS % 0.5 % (0.0-1.0); EOSINOPHILS # (AUTO) 0.2 (0.0-0.4); EOSINOPHILS % 2.6 % (0.0-6.0); LYMPHOCYTES # (AUTO) 1.4 (1.0-3.2); MEAN CORPUSCULAR HEMOGLOBIN 22.8 pg (28-32); MEAN CORPUSCULAR HGB CONC 28.3 g/dL (31-35); MEAN CORPUSCULAR VOLUME 80.4 fL (81-99); MONOCYTES # (AUTO) 0.8 (0.2-0.8); MONOCYTES % 9.1 % (4.4-11.3); NEUTROPHILS # (AUTO) 6.2 (2.1-6.9); NEUTROPHILS % 71.3 % (38.7-80.0); PLATELET COUNT 216 x10e3/uL (140-360); RED BLOOD COUNT 3.73 x10e6/uL (4.3-5.7); RED CELL DISTRIBUTION WIDTH 19.8 % (11.7-14.4)
[2018-11-01 10:03] LABS: HEMOGLOBIN 8.5 g/dL (14.0-18.0)
[2018-11-01 10:20] LABS: ALBUMIN/GLOBULIN RATIO 1.1 (0.8-2.0); ANION GAP 18.3 mmol/L (8-16); CALCIUM 10.1 mg/dL (8.4-10.2); CREATININE, SERUM 1.48 mg/dL (0.72-1.25); POTASSIUM 3.3 mmol/L (3.5-5.1)
[2018-11-01 10:38] LABS: CREATINE KINASE MB 0.8 ng/mL (0-5.0)
--- NOTE | 2018-11-01 11:02 | NUR ---
patient off bipap per er md, tolerating well.
--- NOTE | 2018-11-01 12:29 | Diagnostic Imaging Report ---
EXAMINATION: CHEST SINGLE (PORTABLE) INDICATION: Swollen legs ^ERMD ORDER ^[id number] ^1050 ^Y COMPARISON: 06/23/2018 FINDINGS: TUBES and LINES: None. LUNGS: Lungs are well inflated. Lungs are clear. There is no evidence of pneumonia or pulmonary edema. PLEURA: No pleural effusion or pneumothorax. HEART AND MEDIASTINUM: Cardiomegaly BONES AND SOFT TISSUES: No acute osseous lesion. Soft tissues are unremarkable. UPPER ABDOMEN: No free air under the diaphragm. IMPRESSION: Cardiomegaly Signed by: Dr. Charlie Shafer M.D. on 11/01/2018 12:25 PM
[2018-11-01] MEDS ORDERED: DEXTROSE 50% SYRINGE 50 ML IV PRN (12:45)
[2018-11-01] MEDS: INSULIN REGULAR, HUMAN 100 UNIT/1 ML 3ML VIAL SQ SCH ×2 (16:55→20:56)
--- NOTE | 2018-11-01 17:05 | NUR ---
PATIENT ARRIVED ON UNIT VIA WHEELCHAIR, ALERT AND ORIENTED. cALL [place] WITHIN REACH AND BED IN LOWEST POSITION.
[2018-11-01 17:14] VITALS: BP 150/73
[2018-11-01 17:24] VITALS: BP 150/73
[2018-11-01 18:43] LABS: CREATINE KINASE MB 0.8 ng/mL (0-5.0)
--- NOTE | 2018-11-01 18:45 | NUR ---
rounded with film processing shift supervisor nurse, patient aware of change and in no distress. call grider within reach and bed in lowest position.
[2018-11-01] MEDS ORDERED: BACLOFEN 10 MG TAB PO PRN (19:00)
[2018-11-01] MEDS ORDERED: HYDRALAZINE HCL 20 MG/ML VIAL IV PRN (19:00)
[2018-11-01] MEDS ORDERED: ONDANSETRON HCL INJ 2MG/ML 2ML 2 MG/ML VIAL IV PRN (19:00)
[2018-11-01] MEDS ORDERED: DIAZEPAM 5 MG TAB PO PRN (19:00)
[2018-11-01] MEDS ORDERED: POTASSIUM CHLORIDE 20 MEQ TAB CR PO NR (19:15)
[2018-11-01 19:28] VITALS: BP 135/70
[2018-11-01 19:29] VITALS: BP 135/70
[2018-11-01] MEDS: NAPROXEN 250 MG TAB PO SCH (19:52)
[2018-11-01] MEDS: CYCLOBENZAPRINE HCL 10 MG TAB PO SCH (20:00)
[2018-11-01] MEDS: SIMVASTATIN 40 MG TAB PO SCH (20:00)
[2018-11-01 23:36] VITALS: BP 109/59
[2018-11-02 02:28] LABS: BASOPHILS % 0.3 % (0.0-1.0); EOSINOPHILS # (AUTO) 0.2 (0.0-0.4); EOSINOPHILS % 3.1 % (0.0-6.0); HEMOGLOBIN 7.9 g/dL (14.0-18.0); LYMPHOCYTES # (AUTO) 1.5 (1.0-3.2); LYMPHOCYTES % 22.2 % (18.0-39.1); MEAN CORPUSCULAR HEMOGLOBIN 22.7 pg (28-32); MEAN CORPUSCULAR HGB CONC 28.2 g/dL (31-35); MEAN CORPUSCULAR VOLUME 80.5 fL (81-99); MONOCYTES # (AUTO) 0.7 (0.2-0.8); MONOCYTES % 10.9 % (4.4-11.3); NEUTROPHILS # (AUTO) 4.2 (2.1-6.9); NEUTROPHILS % 63.1 % (38.7-80.0); PLATELET COUNT 196 x10e3/uL (140-360); RED BLOOD COUNT 3.48 x10e6/uL (4.3-5.7); RED CELL DISTRIBUTION WIDTH 19.7 % (11.7-14.4)
[2018-11-02 03:10] LABS: CREATINE KINASE MB 0.6 ng/mL (0-5.0)
[2018-11-02 03:22] LABS: B-TYPE NATRIURETIC PEPTIDE2 363.9 pg/mL (0-100)
[2018-11-02 03:59] LABS: ANION GAP 14.9 mmol/L (8-16); CALCIUM 9.9 mg/dL (8.4-10.2); CHOL/HDL RATIO 6.7 (3.9-4.7); CREATININE, SERUM 1.22 mg/dL (0.72-1.25)
[2018-11-02 04:00] LABS: POTASSIUM 2.9 mmol/L (3.5-5.1)
--- NOTE | 2018-11-02 04:10 | NUR ---
Left message with answering service for Dr. Lopez for patient's potassium of 2.9. Waiting call-back.
[2018-11-02 04:19] LABS: FREE T4 (FREE THYROXINE) 0.95 ng/dL (0.9-1.8); THYROID STIMULATING HORMONE 1.953 uIU/mL (0.350-4.940)
[2018-11-02 04:23] VITALS: BP 129/65
[2018-11-02] MEDS: LEVOTHYROXINE SODIUM 50 MCG TAB PO SCH (04:31)
[2018-11-02] MEDS ORDERED: POTASSIUM CHLORIDE 20 MEQ TAB CR PO STA ×3 (04:40→07:31)
[2018-11-02] MEDS: NAPROXEN 250 MG TAB PO SCH ×2 (06:14→20:24)
--- NOTE | 2018-11-02 06:45 | NUR ---
report received from mine shifter, patient sitting on side of bed and in no distress. Call grider within reach and bed in lowest position.
[2018-11-02 07:00] VITALS: BP 153/71
[2018-11-02] MEDS: GLIPIZIDE 5 MG TAB PO SCH ×2 (07:50→17:29)
[2018-11-02] MEDS: INSULIN REGULAR, HUMAN 100 UNIT/1 ML 3ML VIAL SQ SCH ×4 (08:30→20:46)
[2018-11-02] MEDS ORDERED: POTASSIUM CHLORIDE 20 MEQ TAB CR PO SCH (09:00)
[2018-11-02] MEDS ORDERED: DOCUSATE SODIUM LIQD 100 MG/10 ML UDC NG SCH (09:00)
[2018-11-02] MEDS: RIVAROXABAN 20 MG TABLET PO SCH (09:25)
[2018-11-02] MEDS: METOPROLOL TARTRATE 50 MG TAB PO SCH ×2 (09:25→17:30)
[2018-11-02] MEDS: ISOSORBIDE MONONITRATE 30 MG TAB CR PO SCH (09:25)
[2018-11-02] MEDS: DIGOXIN 0.125 MG TAB PO SCH (09:25)
[2018-11-02] MEDS: LOSARTAN POTASSIUM 100 MG TAB PO SCH (09:25)
[2018-11-02] MEDS: TAMSULOSIN HCL 0.4 MG CAP PO SCH (09:25)
[2018-11-02] MEDS: ALLOPURINOL 300 MG TAB PO SCH (09:25)
[2018-11-02] MEDS: FUROSEMIDE INJ 10 MG/ML 4 ML VIAL IV SCH ×2 (09:25→17:29)
[2018-11-02] MEDS ORDERED: BISACODYL 5 MG TAB EC PO ONE (10:15)
--- NOTE | 2018-11-02 10:29 | Consultation ---
DATE OF CONSULTATION: 11/01/2018 REASON FOR CONSULTATION: Shortness of breath. CONSULTING PHYSICIAN: Dr. Lopez. HISTORY OF PRESENT ILLNESS: This is a pleasant 72-year-old male, who is presenting with shortness of breath. According to the patient, for the last 7 to 14 days, he has shortness of breath, unable to carry around activities of daily living, gets shortness of breath on exertion, then he decided to see his necktie turner. At the necktie turner's office with Dr. Fam, he had noted bilateral lower extremity swelling and shortness of breath, and he was sent to the emergency room for further evaluation. He also complained of swelling to lower extremities x2 weeks and constipation. He has a history of multiple medical problems. He denied any chest pain, any palpitation, any diaphoresis, any headache, nausea, or vomiting. Troponin was negative. EKG showed AFib, irregularly irregular, BNP 363, and chest x-ray showed cardiomegaly. PAST MEDICAL HISTORY: Hypertension, diabetes, gout, hyperlipidemia, arthritis, chronic atrial fibrillation on Xarelto, chronic systolic CHF, chronic renal insufficiency, anemia, PR, PVD with stenting in the past, and phimosis. PAST SURGICAL HISTORY: Eye surgery, and circumcision. FAMILY HISTORY: Positive for hypertension. SOCIAL HISTORY: No smoking. No drinking. He lives at home with family. MEDICATIONS: He was on allopurinol, baclofen, diazepam, digoxin, glipizide, isosorbide, levothyroxine, losartan, metoprolol, naproxen, Xarelto, Crestor, tamsulosin, cyclobenzaprine, and Cialis. ALLERGIES: HE IS ALLERGIC TO PENICILLIN. REVIEW OF SYSTEMS: Negative except as mentioned above. Positive for bilateral lower extremity edema and shortness of breath. PHYSICAL EXAMINATION: VITAL SIGNS: Temperature 97, heart rate 86, blood pressure 129/65, respirations 18, and oxygen saturation 96% on room air. GENERAL: He is awake, alert, and oriented x3. HEENT: Mucous membranes moist. NECK: Supple. LUNGS: Bilaterally decreased breath sounds. CARDIOVASCULAR: Irregularly irregular. ABDOMEN: Soft. NEUROLOGIC: Intact. EXTREMITIES: Bilateral lower with 3 to 4+ pitting edema. LABS: Sodium 140, potassium 2.9, chloride 95, CO2 33, BUN 42, creatinine 1.22, and glucose 124. White blood cells 6.72, hemoglobin 7.9, hematocrit 28.0, and platelets 196. ASSESSMENT: 1. Chronic systolic congestive heart failure exacerbation. 2. Chronic atrial fibrillation. 3. Constipation. 4. Hypertension. 5. Diabetes. 6. Obesity. 7. Hypothyroidism. 8. Gout. 9. Anemia. 10. Hypokalemia. 11. Chronic renal insufficiency. PLAN: 1. He had an echocardiogram in the office that showed EF 45% to 50%. 2. We will get bilateral lower extremity Doppler to rule out any DVT due to the edema. 3. Potassium was low and has been replaced. 4. He is getting iron replacement for the low hemoglobin. 5. Heart rate is controlled and he is anticoagulated. 6. We will continue diuretic, beta-joseline, and CHANTAL inhibitor. 7. We will put him on low-salt diet and 1.5 L fluid restriction. 8. Further cardiac workup pending clinical course. Thank you for this consultation. Dictated by Norma Garcia NP MD ADILENE Mendoza/BHARGAVI /[id number]
[2018-11-02 12:00] VITALS: BP_SYST 106; BP_SYST 140; BP_DIAS 57; BP_DIAS 69
--- NOTE | 2018-11-02 15:55 | NUR ---
SOCIAL WORK INITIAL ASSESSMENT Overlock Collar Setter to bedside to discuss plan of care with patient/family. CM/SW role and care transitions discussed. Anticipated discharge plan discussed along with duration of care. CM/SW discussed patients right to make decisions in care. CM/SW work hours given. Patient lives: IN APT UPSTAIRS BY SELF Admit/Transfer: VIA ED POA/Emergency contact: YANDY [phone] Current/Previous Home Health: NONE PCP/Follow-up Care: CLARY Current/Previous DME: DAVIDA Other Services: NONE Employment Status: RET Areas of Concerns: NONE Referral Needs: NONE Education Needs: NONE IMM/BRINK given and signed (if applicable): BRINK Goal for discharge: RETURN HOME CM/SW left business card at the bedside with contact information. Name and number was also written on the patients whiteboard. Patient verbalized understanding of discussion. CM will follow-up with ongoing discharge and transition of care needs.
--- NOTE | 2018-11-02 15:57 | NUR ---
HAS A PROVIDER 39 HOURS A WEEK
[2018-11-02 16:00] VITALS: BP 98/59
--- NOTE | 2018-11-02 17:06 | Diagnostic Imaging Report ---
Limited abdominal ultrasound History: Rule out ascites. Comparison: None. Technique/findings: Limited ultrasound was performed of the abdomen in all four quadrants to evaluate for ascites. No ascites was identified. IMPRESSION: No sonographic evidence of ascites. Signed by: Dr. Laura Guido MD on 11/02/2018 5:02 PM
[2018-11-02] MEDS: FAMOTIDINE 20 MG TAB PO SCH (17:29)
[2018-11-02] MEDS: POTASSIUM CHLORIDE 20 MEQ TAB CR PO SCH (17:29)
[2018-11-02] MEDS: DOCUSATE SODIUM 100 MG CAP PO SCH (17:29)
--- NOTE | 2018-11-02 18:35 | NUR ---
patient ambulating in room,,Alert with no distress, denies any SOB or Chest pain, keep monitoring
[2018-11-02 20:00] VITALS: BP 110/65
[2018-11-02] MEDS: SIMVASTATIN 40 MG TAB PO SCH (20:25)
[2018-11-02] MEDS: CYCLOBENZAPRINE HCL 10 MG TAB PO SCH (20:25)
[2018-11-02] MEDS: ACETAMINOPHEN 325 MG TAB PO PRN (23:03)
[2018-11-03] VITALS (9 sets, daily range): BP systolic 104–139; BP diastolic 56–80
[2018-11-03 05:36] LABS: ALBUMIN 3.5 g/dL (3.5-5.0); BILIRUBIN,DIRECT 0.3 mg/dL (0.0-0.5)
[2018-11-03] MEDS: LEVOTHYROXINE SODIUM 50 MCG TAB PO SCH (05:38)
[2018-11-03 05:49] LABS: FERRITIN 30.29 ng/mL (21.81-274.66)
[2018-11-03 06:11] LABS: FOLATE 15.6 ng/mL (7.0-15.4)
--- NOTE | 2018-11-03 08:16 | NUR ---
Message left for Dr. Lopez requesting dc plan, as pt does not appear to meet inpatient status and is Day 2 observation
[2018-11-03] MEDS: FAMOTIDINE 20 MG TAB PO SCH ×2 (08:55→17:14)
[2018-11-03] MEDS: GLIPIZIDE 5 MG TAB PO SCH ×2 (08:55→17:14)
[2018-11-03] MEDS: NAPROXEN 250 MG TAB PO SCH ×2 (08:55→17:14)
[2018-11-03] MEDS: LOSARTAN POTASSIUM 100 MG TAB PO SCH (08:56)
[2018-11-03] MEDS: DOCUSATE SODIUM 100 MG CAP PO SCH ×2 (08:56→17:14)
[2018-11-03] MEDS: FUROSEMIDE INJ 10 MG/ML 4 ML VIAL IV SCH ×2 (08:56→17:14)
[2018-11-03] MEDS: ISOSORBIDE MONONITRATE 30 MG TAB CR PO SCH (08:56)
[2018-11-03] MEDS: INSULIN REGULAR, HUMAN 100 UNIT/1 ML 3ML VIAL SQ SCH ×4 (08:56→20:26)
[2018-11-03] MEDS: TAMSULOSIN HCL 0.4 MG CAP PO SCH (08:56)
[2018-11-03] MEDS: RIVAROXABAN 20 MG TABLET PO SCH (08:57)
[2018-11-03] MEDS: METOPROLOL TARTRATE 50 MG TAB PO SCH ×2 (08:57→17:14)
[2018-11-03] MEDS: TADALAFIL PO SCH (08:57)
[2018-11-03] MEDS: POTASSIUM CHLORIDE 20 MEQ TAB CR PO SCH ×2 (08:57→17:14)
[2018-11-03] MEDS: METOLAZONE 5 MG TAB PO SCH (08:57)
[2018-11-03] MEDS: ALLOPURINOL 300 MG TAB PO SCH (08:57)
[2018-11-03] MEDS: DIGOXIN 0.125 MG TAB PO SCH (08:57)
[2018-11-03] MEDS ORDERED: TADALAFIL PO SCH (09:00)
[2018-11-03 14:44] LABS: BASOPHILS % 0.2 % (0.0-1.0); EOSINOPHILS # (AUTO) 0.2 (0.0-0.4); EOSINOPHILS % 2.5 % (0.0-6.0); HEMATOCRIT 29.7 % (38.2-49.6); HEMOGLOBIN 8.3 g/dL (14.0-18.0); LYMPHOCYTES # (AUTO) 1.5 (1.0-3.2); LYMPHOCYTES % 18.4 % (18.0-39.1); MEAN CORPUSCULAR HEMOGLOBIN 22.7 pg (28-32); MEAN CORPUSCULAR HGB CONC 27.9 g/dL (31-35); MEAN CORPUSCULAR VOLUME 81.1 fL (81-99); MONOCYTES # (AUTO) 0.8 (0.2-0.8); MONOCYTES % 9.8 % (4.4-11.3); NEUTROPHILS # (AUTO) 5.5 (2.1-6.9); NEUTROPHILS % 68.7 % (38.7-80.0); PLATELET COUNT 241 x10e3/uL (140-360); RED BLOOD COUNT 3.66 x10e6/uL (4.3-5.7); RED CELL DISTRIBUTION WIDTH 19.8 % (11.7-14.4)
[2018-11-03 15:08] LABS: ANION GAP 12.9 mmol/L (8-16); CALCIUM 9.6 mg/dL (8.4-10.2); CREATININE, SERUM 1.56 mg/dL (0.72-1.25); MAGNESIUM 2.2 MG/DL (1.3-2.1); POTASSIUM 3.9 mmol/L (3.5-5.1)
[2018-11-03] MEDS ORDERED: CITRATE OF MAGNESIA 300ML BOTTLE PO ONE (18:00)
--- NOTE | 2018-11-03 19:00 | NUR ---
received report from day nurse. patient is resting comfortably in bed. bed is in lowest position and call grider is within reach. no complaints of pain or discomfort noted. will continue to monitor patient.
[2018-11-03] MEDS: SIMVASTATIN 40 MG TAB PO SCH (20:26)
[2018-11-03] MEDS: CYCLOBENZAPRINE HCL 10 MG TAB PO SCH (20:26)
[2018-11-04] VITALS (7 sets, daily range): BP systolic 113–140; BP diastolic 57–77
[2018-11-04 04:09] LABS: BASOPHILS % 0.4 % (0.0-1.0); EOSINOPHILS # (AUTO) 0.2 (0.0-0.4); EOSINOPHILS % 3.3 % (0.0-6.0); HEMATOCRIT 30.9 % (38.2-49.6); HEMOGLOBIN 8.7 g/dL (14.0-18.0); LYMPHOCYTES # (AUTO) 1.4 (1.0-3.2); LYMPHOCYTES % 19.2 % (18.0-39.1); MEAN CORPUSCULAR HEMOGLOBIN 22.6 pg (28-32); MEAN CORPUSCULAR HGB CONC 28.2 g/dL (31-35); MEAN CORPUSCULAR VOLUME 80.3 fL (81-99); MONOCYTES # (AUTO) 0.8 (0.2-0.8); MONOCYTES % 10.9 % (4.4-11.3); NEUTROPHILS # (AUTO) 4.9 (2.1-6.9); NEUTROPHILS % 65.8 % (38.7-80.0); PLATELET COUNT 232 x10e3/uL (140-360); RED BLOOD COUNT 3.85 x10e6/uL (4.3-5.7); RED CELL DISTRIBUTION WIDTH 19.8 % (11.7-14.4)
[2018-11-04 04:39] LABS: ANION GAP 15.5 mmol/L (8-16); CALCIUM 10.2 mg/dL (8.4-10.2); CREATININE, SERUM 1.39 mg/dL (0.72-1.25); MAGNESIUM 2.7 MG/DL (1.3-2.1); POTASSIUM 3.5 mmol/L (3.5-5.1)
[2018-11-04] MEDS: LEVOTHYROXINE SODIUM 50 MCG TAB PO SCH (05:44)
--- NOTE | 2018-11-04 06:48 | NUR ---
report given to day nurse. patient is resting comfortably in bed
[2018-11-04] MEDS: INSULIN REGULAR, HUMAN 100 UNIT/1 ML 3ML VIAL SQ SCH ×4 (07:41→20:37)
[2018-11-04] MEDS: FUROSEMIDE INJ 10 MG/ML 4 ML VIAL IV SCH ×2 (08:28→16:20)
[2018-11-04] MEDS: FAMOTIDINE 20 MG TAB PO SCH ×2 (08:28→16:20)
[2018-11-04] MEDS: GLIPIZIDE 5 MG TAB PO SCH ×2 (08:28→16:20)
[2018-11-04] MEDS: NAPROXEN 250 MG TAB PO SCH ×2 (08:28→20:35)
[2018-11-04] MEDS: DOCUSATE SODIUM 100 MG CAP PO SCH ×2 (08:29→16:20)
[2018-11-04] MEDS: TAMSULOSIN HCL 0.4 MG CAP PO SCH (08:29)
[2018-11-04] MEDS: LOSARTAN POTASSIUM 100 MG TAB PO SCH (08:29)
[2018-11-04] MEDS: TADALAFIL PO SCH (08:29)
[2018-11-04] MEDS: POTASSIUM CHLORIDE 20 MEQ TAB CR PO SCH ×2 (08:30→16:20)
[2018-11-04] MEDS: DIGOXIN 0.125 MG TAB PO SCH (08:30)
[2018-11-04] MEDS: METOPROLOL TARTRATE 50 MG TAB PO SCH ×2 (08:30→16:20)
[2018-11-04] MEDS: ISOSORBIDE MONONITRATE 30 MG TAB CR PO SCH (08:30)
[2018-11-04] MEDS: METOLAZONE 5 MG TAB PO SCH (08:30)
[2018-11-04] MEDS: RIVAROXABAN 20 MG TABLET PO SCH (08:30)
[2018-11-04] MEDS: ALLOPURINOL 300 MG TAB PO SCH (08:30)
[2018-11-04] MEDS ORDERED: POLYETHYLENE GLYCOL 3350 17 GM PACK PO SCH (09:00)
--- NOTE | 2018-11-04 15:40 | NUR ---
Visit made by the Spiritual Care Department Pastoral Visitor, Bouchra Hunter. PV provided pastoral presence. Pastoral Visitor informed pt/family of the scope of Costing Analyst Services and availability. DARRYL KING Director Digital Marketing Spiritual Care Department O: [phone] Pager: [phone] ([phone] calling from)
--- NOTE | 2018-11-04 18:12 | Consultation ---
DATE OF CONSULTATION: Pulmonary Critical Care Consultation CHIEF COMPLAINT: Dyspnea and leg edema. HISTORY OF PRESENT ILLNESS: The patient is a 72-year-old man. He has a history of dementia and chronic systolic congestive heart failure. He sees Dr. Fam as an outpatient. He came in complaining of worsening leg edema and difficulty breathing. He also noted some constipation. He denied any chest pain or fevers. PAST SURGICAL HISTORY: 1. Status post right lower extremity stents. 2. Status post cataract surgery. PAST MEDICAL HISTORY: 1. Chronic atrial fibrillation. 2. Chronic systolic congestive heart failure. 3. Arthritis. 4. Hypothyroidism. FAMILY HISTORY: Family history is significant for diabetes and cerebrovascular accident. SOCIAL HISTORY: The patient recently quit smoking. He is not drinking alcohol. ALLERGIES: THE PATIENT IS ALLERGIC TO PENICILLIN. REVIEW OF SYSTEMS: The patient is not complaining of headache. The patient has no neck pain. The patient has no sore throat. Cardiac evaluation was done as an outpatient by Dr. Fam. He did note some difficulty breathing. He had a mild cough. He has some constipation. There is no nausea or vomiting. He has no leg edema. He has no abdominal pain. He does complain of bilateral leg edema. PHYSICAL EXAMINATION: VITAL SIGNS: The patient is afebrile. The blood pressure is 128/77 and the saturation is 98%. The pulse is 68. HEENT: Shows no facial swelling or erythema. The nasal mucosa is normal. The oropharynx is normal. LYMPHATIC: Shows no submandibular, cervical, or supraclavicular adenopathy. CARDIAC: Reveals regular rate and rhythm with normal S1, S2. There are no murmurs or rubs. LUNGS: Auscultation of lungs reveals clear breath sounds bilaterally. There is no wheezing. ABDOMEN: Soft and nontender. There is no rebound or guarding. EXTREMITIES: Shows 1 to 2+ leg edema. There are no focal neurological abnormalities. LABORATORY DATA: BUN to creatinine ratio is 36-1.39 and the other electrolytes are within normal limits. The blood sugar is 150-175. The white blood cell count is 7.36 and hemoglobin is 8.7. The platelet count is 232. IMPRESSION: 1. Acute on chronic systolic congestive heart failure. 2. Chronic atrial fibrillation. 3. Diabetes. 4. Prior smoking history. 5. Chronic renal failure, stage 2 to 3. 6. Anemia, unspecified. 7. Diabetes. PLAN: 1. Patient will continue current diuretic regimen. 2. Continue current treatment for diabetes. 3. Continue Xarelto and rate control for atrial fibrillation. MD ZEV Barber/BHARGAVI /[id number]
--- NOTE | 2018-11-04 19:00 | NUR ---
received report from day nurse. patient is resting comfortably in bed. bed is in lowest position and call grider is within reach. will continue to monitor patient.
[2018-11-04] MEDS: CYCLOBENZAPRINE HCL 10 MG TAB PO SCH (20:36)
[2018-11-04] MEDS: SIMVASTATIN 40 MG TAB PO SCH (20:36)
[2018-11-04] MEDS: ACETAMINOPHEN 325 MG TAB PO PRN (20:56)
[2018-11-05] VITALS: BP 93/54
[2018-11-05 04:00] VITALS: BP 130/72
[2018-11-05 04:37] LABS: BASOPHILS % 0.4 % (0.0-1.0); EOSINOPHILS # (AUTO) 0.3 (0.0-0.4); EOSINOPHILS % 4.3 % (0.0-6.0); HEMATOCRIT 31.8 % (38.2-49.6); HEMOGLOBIN 9.1 g/dL (14.0-18.0); LYMPHOCYTES # (AUTO) 1.7 (1.0-3.2); LYMPHOCYTES % 23.7 % (18.0-39.1); MEAN CORPUSCULAR HEMOGLOBIN 22.9 pg (28-32); MEAN CORPUSCULAR HGB CONC 28.6 g/dL (31-35); MEAN CORPUSCULAR VOLUME 79.9 fL (81-99); MONOCYTES # (AUTO) 0.8 (0.2-0.8); MONOCYTES % 11.9 % (4.4-11.3); NEUTROPHILS # (AUTO) 4.2 (2.1-6.9); NEUTROPHILS % 59.6 % (38.7-80.0); PLATELET COUNT 242 x10e3/uL (140-360); RED BLOOD COUNT 3.98 x10e6/uL (4.3-5.7); RED CELL DISTRIBUTION WIDTH 19.7 % (11.7-14.4)
[2018-11-05 04:56] LABS: ANION GAP 15.5 mmol/L (8-16); CALCIUM 9.4 mg/dL (8.4-10.2); CREATININE, SERUM 1.65 mg/dL (0.72-1.25); MAGNESIUM 2.8 MG/DL (1.3-2.1); POTASSIUM 3.5 mmol/L (3.5-5.1)
[2018-11-05] MEDS: LEVOTHYROXINE SODIUM 50 MCG TAB PO SCH (05:47)
--- NOTE | 2018-11-05 07:00 | NUR ---
report given to day nurse. patient is resting comfortably in bed. bed is in lowest position and call grider is within reach.
[2018-11-05] MEDS ORDERED: K DUR10 MEQ PO (07:07)
[2018-11-05] MEDS ORDERED: METOLAZONE5 MG PO (07:07)
[2018-11-05] MEDS ORDERED: COLACE100 MG PO (07:07)
[2018-11-05 08:30] VITALS: BP 142/68
[2018-11-05] MEDS: GLIPIZIDE 5 MG TAB PO SCH (09:05)
[2018-11-05] MEDS: METOLAZONE 5 MG TAB PO SCH (09:05)
[2018-11-05] MEDS: NAPROXEN 250 MG TAB PO SCH (09:05)
[2018-11-05] MEDS: FUROSEMIDE INJ 10 MG/ML 4 ML VIAL IV SCH (09:05)
[2018-11-05] MEDS: ALLOPURINOL 300 MG TAB PO SCH (09:05)
[2018-11-05] MEDS: LOSARTAN POTASSIUM 100 MG TAB PO SCH (09:05)
[2018-11-05] MEDS: DIGOXIN 0.125 MG TAB PO SCH (09:05)
[2018-11-05] MEDS: INSULIN REGULAR, HUMAN 100 UNIT/1 ML 3ML VIAL SQ SCH (09:05)
[2018-11-05] MEDS: ISOSORBIDE MONONITRATE 30 MG TAB CR PO SCH (09:05)
[2018-11-05] MEDS: RIVAROXABAN 20 MG TABLET PO SCH (09:05)
[2018-11-05] MEDS: DOCUSATE SODIUM 100 MG CAP PO SCH (09:05)
[2018-11-05] MEDS: TAMSULOSIN HCL 0.4 MG CAP PO SCH (09:05)
[2018-11-05] MEDS: METOPROLOL TARTRATE 50 MG TAB PO SCH (09:05)
[2018-11-05] MEDS: FAMOTIDINE 20 MG TAB PO SCH (09:05)
--- NOTE | 2018-11-05 09:15 | NUR ---
patient alert and oriented. Discharge instructions given at this time, patient verbalized understanding. IV discontinued, catheter in tact and pressure dressing applied. Patient to be wheeled from the floor to personal auto for daughter to drive home.
[2018-11-05] MEDS ORDERED: ONDANSETRON HCL 4 MG ORAL DISINTEGRATING TAB PO PRN (09:45)
--- NOTE | 2018-11-07 06:15 | Discharge Summary ---
ADMISSION DIAGNOSES: Acute on chronic systolic congestive heart failure, chronic atrial fibrillation, type 2 diabetes, bilateral lower extremity edema, arthritis, chronic kidney disease 3, anemia of chronic disease, benign prostatic hypertrophy, hypothyroidism, hypokalemia, gout, hypertension, and hyperlipidemia. DISCHARGE DIAGNOSES: Acute on chronic systolic congestive heart failure, chronic atrial fibrillation, type 2 diabetes, bilateral lower extremity edema, arthritis, chronic kidney disease 3, anemia of chronic disease, benign prostatic hypertrophy, hypothyroidism, hypokalemia, gout, hypertension, and hyperlipidemia. HISTORY: PAD with stents, chronic systolic CHF, chronic atrial fibrillation, type 2 diabetes, anemia of chronic disease, CKD 3, gout, arthritis, hypothyroidism, hyperlipidemia, BPH, phimosis, and hypertension. SURGICAL HISTORY: Left cataract surgery, bilateral lower extremity stents, and circumcision. FAMILY HISTORY: Patient's sister and brother have diabetes. The patient's brother had a stroke. SOCIAL HISTORY: The patient admits to occasional alcohol use and electronic cigarette use for years. HOSPITAL COURSE: A 72-year-old male complains of shortness of breath and bilateral lower extremity edema x2 weeks. He denies nausea, vomiting, fever, recent travel, cough, and diarrhea. He admits to taking his medications as prescribed. On admission, chest x-ray showed cardiomegaly. Due to abdominal distension, he had an ultrasound of the abdomen that showed no evidence of ascites. BNP on admission was 523. EKG showed atrial fibrillation at 80. Bilateral lower extremity venous Doppler was negative for DVT. Echo showed an EF of 50%. The patient was placed on a low-salt diet and 1.5 L fluid restriction. After a couple days of IV Lasix and metolazone, patient was breathing better and edema has improved. He will discharge home with home medicines plus increased potassium, metolazone, and Colace. The patient understands discharge instructions and agrees to plan. Vital signs stable, patient afebrile. Dictated by Deandra Sanchez NP MD SOREN Reid/BHARGAVI /[id number]
== END 2018-11-05 09:22 | disposition home or self-care (01) | DRG 291 ==
LOC: ER 09:25 → ERHOLD 14:07 → IMCU 17:03 → OBSVTOIN 11-03 12:15
PROVIDERS: ADMIT Internal Medicine; ATTEND Internal Medicine
DX: I13.0 Hypertensive heart and chronic kidney disease with heart failure and stage 1 through stage 4 chronic kidney disease, or unspecified chronic kidney disease (principal); I50.23 Acute on chronic systolic (congestive) heart failure; N18.3 Chronic kidney disease, stage 3 (moderate); E11.22 Type 2 diabetes mellitus with diabetic chronic kidney disease; Z79.4 Long term (current) use of insulin; D63.8 Anemia in other chronic diseases classified elsewhere; R60.0 Localized edema; M19.90 Unspecified osteoarthritis, unspecified site; I48.2 Chronic atrial fibrillation; E66.9 Obesity, unspecified; Z68.35 Body mass index [BMI] 35.0-35.9, adult; E87.6 Hypokalemia; M10.9 Gout, unspecified; K59.00 Constipation, unspecified; Z87.891 Personal history of nicotine dependence
CPT/HCPCS: 36415; 36600; 71045; 76705; 80048; 80053; 80061; 80076; 82270; 82550; 82553; 82607; 82728; 82746; 82805; 82948; 83036; 83540; 83735; 83880; 84439; 84443; 84466; 84484; 85025; 93005; 93306; 93970; 94660; 99284; G0378; J1940

== ENCOUNTER → 2019-03-21 | Day surgery (SDC) | payer MEDICARE, OTHER ==
[2019-03-20 09:57] LABS: BASOPHILS % 0.4 % (0.0-1.0); EOSINOPHILS # (AUTO) 0.1 (0.0-0.4); EOSINOPHILS % 1.6 % (0.0-6.0); HEMATOCRIT 35.6 % (38.2-49.6); HEMOGLOBIN 10.6 g/dL (14.0-18.0); LYMPHOCYTES # (AUTO) 1.3 (1.0-3.2); LYMPHOCYTES % 17.9 % (18.0-39.1); MEAN CORPUSCULAR HEMOGLOBIN 23.9 pg (28-32); MEAN CORPUSCULAR HGB CONC 29.8 g/dL (31-35); MEAN CORPUSCULAR VOLUME 80.2 fL (81-99); MONOCYTES # (AUTO) 0.6 (0.2-0.8); MONOCYTES % 8.6 % (4.4-11.3); NEUTROPHILS # (AUTO) 5.3 (2.1-6.9); NEUTROPHILS % 71.2 % (38.7-80.0); PLATELET COUNT 229 x10e3/uL (140-360); RED BLOOD COUNT 4.44 x10e6/uL (4.3-5.7); RED CELL DISTRIBUTION WIDTH 19.5 % (11.7-14.4)
[~2019-03-21] MED LIST changes: +COLACE100 MG PO; +HYDROCODON-ACE1 EAC9 PO; +JENTADUETO 2.51 EAC2 PO; +K DUR10 MEQ PO; +KLOR-CON M1515 MEQ PO; +PROPOFOL IV EMULSION 10 MG/ML 50 ML VIAL ONE; +lactulose; +linzess PO; +toujeo SC
[2019-03-21 09:45] VITALS: BP 124/83
== END | disposition home or self-care (01) ==
LOC: OR 05:56
PROVIDERS: ATTEND Internal Medicine Gastroenterology
DX: Z12.11 Encounter for screening for malignant neoplasm of colon (principal); D12.4 Benign neoplasm of descending colon; K57.30 Diverticulosis of large intestine without perforation or abscess without bleeding; K64.8 Other hemorrhoids; R14.0 Abdominal distension (gaseous); Z71.3 Dietary counseling and surveillance; E66.9 Obesity, unspecified; E11.9 Type 2 diabetes mellitus without complications; I25.10 Atherosclerotic heart disease of native coronary artery without angina pectoris; I48.91 Unspecified atrial fibrillation; I45.10 Unspecified right bundle-branch block; I25.2 Old myocardial infarction; I10 Essential (primary) hypertension; F41.9 Anxiety disorder, unspecified; Z88.0 Allergy status to penicillin; Z01.810 Encounter for preprocedural cardiovascular examination; Z01.812 Encounter for preprocedural laboratory examination; Z68.35 Body mass index [BMI] 35.0-35.9, adult
CPT/HCPCS: 36415 ×2; 45385; 82948; 85025; 88305; 93005; J2704

== ENCOUNTER 2019-09-24 19:53 | Emergency (ER) | payer MEDICARE, OTHER ==
[~2019-09-24] VITALS: Ht 170.2 cm; Wt 101.6 kg
[~2019-09-24 19:53] MED LIST changes: -PROPOFOL IV EMULSION 10 MG/ML 50 ML VIAL ONE
[2019-09-24] MEDS ORDERED: KETOROLAC TROMETHAMINE 30 MG/ML VIAL IM PRN (20:15)
[2019-09-24] MEDS ORDERED: DEXAMETHASONE SOD PHOS 10 MG/1 ML VIAL IM ONE (20:15)
[2019-09-24] MEDS ORDERED: DIAZEPAM 5 MG TAB PO ONE (20:30)
--- NOTE | 2019-09-24 21:55 | Diagnostic Imaging Report ---
Procedure: Thin collimation CT of the left shoulder without contrast was performed with multiplanar reconstructions. RADIATION DOSE: Total DLP: 1292.41 mGy*cm Estimated effective dose: (DLP x 0.015 x size factor) mSv CTDIvol has been reviewed. It is below the limits set by the Radiation Protocol Committee (RPC). Indications: Pain, history of gout Comparisons: None Findings: Multiplanar reconstructions were performed in order to more optimally visualize bony pathology and reduce radiation dose. Bones: No evidence of fracture or dislocation. Moderate degenerative changes of the humeral head. No degenerative changes of the glenoid. Mild degenerative changes of the glenohumeral joint. No joint effusions. No tendinous calcifications. Mild degenerative changes of the cervical spine. Visualized ribs are normal. No lytic or blastic lesions. Lymph nodes: No enlarged axillary lymph nodes. Visualized portion of the mediastinum is normal. Lungs: No nodules or infiltrates in the visualized portions. Soft tissues: No mass. IMPRESSION: Moderate degenerative changes of the left humeral head. Mild degenerative changes of the left AC joint. No dislocation. Signed by: Dr. Satish Ortiz MD on 09/24/2019 9:52 PM
--- NOTE | 2019-09-24 22:06 | Diagnostic Imaging Report ---
History: Pain in left shoulder and neck. Comparison studies: None Technique: Axial images were obtained through the cervical and thoracic region.. Coronal and sagittal images reconstructed from the axial data. Dose modulation, iterative reconstruction, and/or weight based adjustment of the mA/kV was utilized to reduce the radiation dose to as low as reasonably achievable. Intravenous contrast: None Findings: Fractures: No acute cervical or thoracic spine fracture. Incidental age indeterminate fracture deformity of posterior aspect of left 11th rib and right 10th rib near the costovertebral junction. Soft tissue injuries: None. Atlantoaxial articulation: Intact. Alignment: Loss of normal cervical lordosis is either positional or due to muscle spasm.Normal thoracic kyphosis No scoliosis. No subluxation. Cervicomedullary junction: No abnormalities. The foramen magnum is patent. Soft tissues: Atherosclerotic calcification in aorta and its branches. Paraspinal muscles: Unremarkable Vertebrae: No fractures, infection or neoplasm. Degenerative changes: Cervical spine: C2-C3: Mild right foraminal stenosis due to facet and uncovertebral arthrosis. C3-C4: Moderate bilateral foraminal stenosis due to facet and uncovertebral arthrosis. C4-C5: Posterior disc osteophyte complex results in mild canal stenosis. Moderate left foraminal stenosis due to facet and uncovertebral arthrosis. C5-C6: Mild left foraminal stenosis due to uncovertebral arthrosis. Thoracic spine: Multilevel degenerative disc disease, multilevel Schmorl's node and bridging anterior vertebral osteophytes represents diffuse idiopathic skeletal hyperostosis. No significant canal stenosis. IMPRESSION: 1. No acute thoracic or cervical spine fracture or dislocation. Loss of normal cervical lordosis is either positional or due to muscle spasm. 2. Ligament, spinal cord and or vascular abnormalities cannot be excluded on the basis of this examination. 3. Cervical and thoracic spondylosis as detailed above. 4. Incidental age indeterminate, possible chronic fracture deformity of right 10th and left 11th rib. Signed by: Dr. La Hill M.D. on 09/24/2019 10:03 PM
[2019-09-25 00:52] VITALS: BP 126/79
== END 2019-09-25 00:05 | disposition home or self-care (01) ==
LOC: ER 19:53
DX: R53.1 Weakness (principal); M54.12 Radiculopathy, cervical region; I10 Essential (primary) hypertension; E11.9 Type 2 diabetes mellitus without complications; E78.5 Hyperlipidemia, unspecified; F17.210 Nicotine dependence, cigarettes, uncomplicated
CPT/HCPCS: 72125; 72128; 73202; 93005; 99283; J1100; J1885

== ENCOUNTER 2019-11-17 16:08 | Emergency (ER) | payer MEDICARE ==
[~2019-11-17] VITALS: Ht 170.2 cm; Wt 101.6 kg
[2019-11-17] MEDS ORDERED: IBUPROFEN 600 MG TAB PO STA (16:25)
[2019-11-17] MEDS ORDERED: COLCHICINE 0.6 MG TAB PO STA (16:58)
--- NOTE | 2019-11-17 19:21 | Diagnostic Imaging Report ---
ELBOW LEFT COMPLETE - 3 views HISTORY: Pain COMPARISON: None available. FINDINGS: Bones: No acute displaced fracture. Osseous alignment is within normal limits. Small olecranon spur. Joints: Small joint effusion. Degenerative changes of the elbow joint. Soft tissues: The soft tissues appear unremarkable. IMPRESSION: Occult nondisplaced fracture of the radial head with small left elbow joint effusion. Signed by: Dr. Travon Chester MD on 11/17/2019 7:18 PM
[2019-11-17 20:03] VITALS: BP 154/97
== END 2019-11-17 20:05 | disposition home or self-care (01) ==
LOC: ER 16:08
DX: M25.522 Pain in left elbow (principal); S52.92XA Unspecified fracture of left forearm, initial encounter for closed fracture; W18.2XXA Fall in (into) shower or empty bathtub, initial encounter; Y93.E1 Activity, personal bathing and showering; Y92.002 Bathroom of unspecified non-institutional (private) residence as the place of occurrence of the external cause; I10 Essential (primary) hypertension; E11.9 Type 2 diabetes mellitus without complications; M10.9 Gout, unspecified; E78.5 Hyperlipidemia, unspecified
CPT/HCPCS: 99283

== ENCOUNTER → 2020-03-05 | Outpatient (CLI) | payer MEDICARE | LOC: RAD 09:22 | PROVIDERS: ATTEND Anesthesiology | DX: R60.9 Edema, unspecified (principal); M79.89 Other specified soft tissue disorders | CPT/HCPCS: 93971 ==

== ENCOUNTER 2020-06-15 09:46 | Inpatient (IN) | payer MEDICARE ==
[~2020-06-15] VITALS: Ht 170.2 cm; Wt 101.6 kg
[~2020-06-15 09:46] MED LIST changes: +ALBUTEROL0.63 MG/3 NEB; +DIOVAN80 MG PO; +FLOMAX0.4 MG PO; +METOPROLOL TAR100 MG PO; +OMEGA 3 1,0001 EACH PO; +PROAIR RESPICL90 MCG INH; +ROSUVASTATIN CA40 MG PO; +SYMBICORT 16010.2 GM INH; +TOUJEO SQ
[2020-06-15] MEDS ORDERED: ONDANSETRON HCL INJ 2MG/ML 2ML 2 MG/ML VIAL IV STA (10:27)
[2020-06-15] MEDS ORDERED: MORPHINE SULFATE INJ 4 MG/ML INJ 1ML IV ONE (10:30)
--- NOTE | 2020-06-15 10:31 | Emergency Department Note ---
History of Present Illnes History of Present Illness Chief Complaint: Extremity Trauma/Pain History of Present Illness This is a 74 year old male . Chief Complaint Comment Patient in from home with complaints of lower right leg pain that started last night. Patient reports that he recently (05/09/2020) had some injections for treatment of his vericose veins and stated that his legs started hurting after he removed the bandages that were placed by the vein doctor. Patient reports a history of gout and states that this feels like gout but denies pain in his toes or in his foot. The patient's right lower leg does have some redness but the area is not warm to touch. Patient reports that the redness is not normally there. Patient states that he called the vein clinic and he was told that their system was done and they couldn't see him so he decided to come to the ER. Patient is ambulatory with a cane. No acute distress noted. Historian: Patient Arrival Mode: Car Severity: mild Timing of current episode: constant Progression: worsening Past Medical/Family History Physician Review I have reviewed the patient's past medical and family history. Any updates have been documented here. Past Medical History Recent Fever: No Clinical Suspicion of Infectio: No New/Unexplained Change in Ment: No Past Medical History: Hypertension, Diabetes, CHF, Hyperlipedemia Other Medical History: HIGH CHOLESTEROL +SMOKER GOUT ARTHRITIS Past Surgical History: PCI Other Surgery: EYE SURGERY, BLADDER SURGERY, LEG STENTS Social History Smoking Cessation: Former smoker Counseling Performed: No Alcohol Use: Occasional Any Illegal Drug Use: No Physically hurt or threatened: No Other Last Tetanus: UNKNOWN Any Pre-Existing Lines (PICC,: No Physical Exam Related Data Allergies: Coded Allergies: penicillin (Verified Allergy, Mild, rash, 11/01/18) Penicillins (Verified Allergy, Unknown, 04/22/20) Triage Vital Signs Vital Signs Date Time Temp Pulse Resp B/P (MAP) Pulse Ox O2 Delivery O2 Flow Rate FiO2 06/15/20 10:07 98.6 85 16 134/84 99 Room Air Physical Exam CONSTITUTIONAL HENT EYES NECK PULMONARY CARDIOVASCULAR GASTROINTESTINAL GENITOURINARY SKIN MUSCULOSKELETAL NEUROLOGICAL PSYCHOLOGICAL Assessment & Plan Last Vital Signs Date Time Temp Pulse Resp B/P (MAP) Pulse Ox O2 Delivery O2 Flow Rate FiO2 06/15/20 10:07 98.6 85 16 134/84 99 Room Air Home Meds Active Scripts Metolazone (METOLAZONE) 5 Mg Tablet, 5 MG PO DAILY for 30 Days Prov:ANUM HICKS [employer] 11/05/18 Docusate Sodium (COLACE) 100 Mg Cap, 100 MG PO BID for 30 Days, CAP Prov:ANUM HICKS [employer] 11/05/18 Baclofen (BACLOFEN) 10 Mg Tablet, 5 MG PO TID PRN for MUSCLE SPASMS, #15 TAB Prov:WYMANBARBARAABNER Hermelinda [employer] OFF[employer] 06/23/18 Reported Medications Furosemide (FUROSEMIDE) 40 Mg Tablet, 40 MG PO BID, #30 TAB 02/05/20 Metolazone (METOLAZONE) 5 Mg Tablet, 5 MG PO DAILY, #30 TAB 02/05/20 Edison-3 Fatty Acids/Fish Oil (OMEGA 3 1,000 MG SOFTGEL) 1 Each Capsule, 2000 MG PO BID 02/05/20 Potassium Chloride (KLOR-CON M15) 15 Meq Tab.er.prt, 15 MEQ PO DAILY 02/05/20 Albuterol Sulfate (Proair Respiclick) 90 Mcg Aer.pow.ba, INH PRN 02/05/20 Rosuvastatin Calcium (Rosuvastatin Calcium) 40 Mg Tablet, 40 MG PO HS 02/05/20 Baclofen (BACLOFEN) 10 Mg Tablet, 5 MG PO BIDPRN, TAB 02/05/20 [Gregory] No Conflict Check, SQ DAILY 02/05/20 Metoprolol Tartrate (METOPROLOL TARTRATE) 100 Mg Tablet, 100 MG PO BID, TAB 02/05/20 Allopurinol (ALLOPURINOL) 300 Mg Tablet, 300 MG PO DAILY, #30 TAB 02/05/20 Linagliptin/Metformin Hcl (JENTADUETO 2.5 MG-1000 MG TAB) 1 Each Tablet, PO BIDWM 02/05/20 Digoxin (DIGOXIN) 125 Mcg Tablet, 0.125 MG PO DAILY, #30 TAB 02/05/20 Rivaroxaban (XARELTO) 20 Mg Tablet, 20 MG PO DAILY 02/05/20 Albuterol Sulfate (ALBUTEROL SULFATE) 0.63 Mg/3 Ml Vial.neb, NEB PRN 02/05/20 Budesonide/Formoterol Fumarate (SYMBICORT 160-4.5 MCG INHALER) 10.2 Gm Hfa.aer.ad, INH DAILY 02/05/20 Valsartan (DIOVAN) 80 Mg Tab, 80 MG PO DAILY, TAB 02/05/20 Tamsulosin Hcl* (FLOMAX*) 0.4 Mg Cap, 0.4 MG PO DAILY, #30 CAP 02/05/20 Potassium Chloride (KLOR-CON M15) 15 Meq Tab.er.prt, 1 TAB PO DAILY 03/20/19 [linzess] No Conflict Check, 145 MG PO DAILY 03/20/19 [lactulose] No Conflict Check 12/26/18 [toujeo] No Conflict Check, 10 UNIT SC daily am 12/26/18 Linagliptin/Metformin Hcl (JENTADUETO 2.5 MG-1000 MG TAB) 1 Each Tablet, 1 TAB PO BID 12/26/18 Hydrocodone Bit/Acetaminophen (HYDROCODON-ACETAMINOPHN 10-325) 1 Each Tablet, 1 TAB PO Q6H 12/26/18 Albuterol Sulf* (PROAIR HFA INHALER*) 8.5 Gm Inh, 1 INH INH PRN 06/23/18 Edison-3 Fatty Acids/Fish Oil (FISH OIL 1,000 MG CAPSULE) 1 Each Capsule, 1 CAP PO BID 11/16/17 Allopurinol (ALLOPURINOL) 300 Mg Tablet, 300 MG PO DAILY, #30 TAB 10/31/17 Glipizide (GLIPIZIDE) 5 Mg Tablet, 10 MG PO BID, TAB 10/31/17 Tamsulosin Hcl (TAMSULOSIN HCL) 0.4 Mg Cap.er.24h, 0.4 MG PO DAILY 10/31/17 Rivaroxaban (XARELTO) 20 Mg Tablet, 20 MG PO DAILY 12/04/15 Digoxin (DIGOXIN) 125 Mcg Tablet, 0.125 MG PO DAILY, #30 TAB 12/04/15 Rosuvastatin Calcium (CRESTOR) 10 Mg Tab, 40 MG PO DAILY THERAPEUTICALLY SUBSTITUTED WITH SIMVASTATIN 40MG 12/04/15 Furosemide (FUROSEMIDE) 40 Mg Tablet, 40 MG PO Q12H, #30 TAB 12/04/15 Metoprolol Tartrate (METOPROLOL TARTRATE) 50 Mg Tablet, 100 MG PO BID, TAB 12/04/15 Losartan Potassium (LOSARTAN POTASSIUM) 100 Mg Tablet, 100 MG PO DAILY, TAB 12/04/15 Medications in the ED Morphine Sulfate 6 mg ONCE ONCE IV ; Start 06/15/20 at 10:30; Stop 06/15/20 at 10:31; Status UNV Ondansetron HCl 4 mg NOW STAT IV ; Start 06/15/20 at 10:27; Stop 06/15/20 at 10:28; Status UNV [address], Jun 15, 2020 10:31
[2020-06-15 10:51] LABS: BASOPHILS # (AUTO) 0.1 (0.0-0.1); BASOPHILS % 0.3 % (0.0-1.0); EOSINOPHILS # (AUTO) 0.1 (0.0-0.4); EOSINOPHILS % 0.8 % (0.0-6.0); HEMATOCRIT 37.7 % (38.2-49.6); HEMOGLOBIN 11.3 g/dL (14.0-18.0); LYMPHOCYTES # (AUTO) 1.1 (1.0-3.2); LYMPHOCYTES % 7.3 % (18.0-39.1); MEAN CORPUSCULAR HEMOGLOBIN 24.7 pg (28-32); MEAN CORPUSCULAR VOLUME 82.3 fL (81-99); MONOCYTES # (AUTO) 1.3 (0.2-0.8); MONOCYTES % 8.6 % (4.4-11.3); NEUTROPHILS # (AUTO) 12.1 (2.1-6.9); NEUTROPHILS % 82.5 % (38.7-80.0); PLATELET COUNT 249 x10e3/uL (140-360); RED BLOOD COUNT 4.58 x10e6/uL (4.3-5.7); RED CELL DISTRIBUTION WIDTH 18.9 % (11.7-14.4)
[2020-06-15 11:15] LABS: ALBUMIN 4.1 g/dL (3.5-5.0); ANION GAP 17.4 mmol/L (8-16); CALCIUM 9.5 mg/dL (8.4-10.2); CREATININE, SERUM 1.56 mg/dL (0.72-1.25); POTASSIUM 3.4 mmol/L (3.5-5.1)
[2020-06-15 11:21] LABS: CREATINE KINASE MB 1.9 ng/mL (0-5.0)
[2020-06-15] MEDS ORDERED: CEFEPIME 1GM/NS 0.9% 50 ML 50 ML IV STA (13:03)
[2020-06-15] MEDS ORDERED: ONDANSETRON HCL INJ 2MG/ML 2ML 2 MG/ML VIAL IV PRN (13:30)
[2020-06-15] MEDS ORDERED: VANCOMYCIN 1GM/NS 250 ML 250 ML IV ONE (13:30)
[2020-06-15] MEDS ORDERED: MORPHINE SULFATE 2 MG/ML SYR 1ML ONE (13:36)
--- OUTSIDE RECORDS SUMMARY | 2020-06-15 14:05 | XMS REPORT | Continuity of Care Document ---
Author Author [facility] t Organization [facility] Address [address] [place] [address] Phone Unavailable Care Team Providers Care Gridcap Machine Operator Name Role Phone DON MEANS MD PCP Isabelle Bryant Attphys LESLI ESPOSITO Attphys Unavailable Tawanna Means Attphys Daisha Dawson Attphys JERI MACDONALD Attphys Unavailable TARIK LANE Attphys Unavailable JANE RIVAS Attphys Unavailable Jeff DING Attphys Unavailable CLARK, HOLLY Attphys Unavailable Hermelinda BURKETT Attphys Unavailable Palmer Fam Attphys JANE RIVAS Admphys Unavailable CLARK, HOLLY Admphys Unavailable Payers Payer Name Policy Type Policy Number Effective Date Expiration Date [facility] [id number] 2018 00:00:00 [facility] [id number] 2018 00:00:00 [facility] [id number] [facility] [id number] 2018 00:00:00 [facility] Problems Condition Name Condition Details Condition Category Status Onset Date Resolution Date Last Treatment Date Treating Clinician Comments Source ROSA HANDS PAIN ROSA HANDS PAIN Active 04/27/2020 [facility] [place] Diagnosis Active 2020-04-27 12:00:00 2020-05-04 09:10:00 Iona Conrad J01.90 - ACUTE SINUSITIS, UNSPECIFIED J01.90 - ACUTE SINUSITIS, UNSPECIFIED Active 07/02/2018 [facility] [place] Diagnosis Active 2018-07-02 00:01:00 2018-11-16 16:53:00 [facility] [place] M54.2 - CERVICALGIA M54. 2 - CERVICALGIA Active 06/22/2018 [facility] [place] Diagnosis Active 2018-06-22 00:01:00 2018-07-05 12:50: 00 [facility] J45.20 - MILD INTERMITTENT ASTHMA, UNCO J45.20 - MILD INTERMITTENT ASTHMA, UNCO Active 01/18/2018 [facility] [place] Diagnosis Active 2018-01-18 00:01:00 2018-07-05 12:55:00 edie Conrad Chronic congestive heart failure Chronic congestive heart failur e Disease Active 2017-09-25 00:00:00 [facility] Type 2 diabetes mellitus with complication Type 2 diab etes mellitus with complication Disease Active 2017-09-25 00:00:00 [facility] Gout Gout Disease Active 2017-09-25 00:00:00 [facility] R05 - COUGH R05 - COUGH Active 12/31/2015 [facility] [place] Diagnosis Active 2015-12-31 00:01:00 2015-12-31 09:33:00 [facility] [place] Hypotension Hypotension Problem Active [facility] Congestive heart failure CHF (congestive heart failure) Problem Active [facility] 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 [facility] [place] Problem 2019-01-20 11:29:30 [facility] Acute sinusitis, unspecified A cute sinusitis, unspecified 07/06/2018 01/20/2019 [facility] [place] Problem 2018-07-06 08:57:28 2019-01-20 11:29:30 2019-01-20 11:29:30 [facility] Other cervical disc degeneration, unspecified cervical region Other cervical disc degeneration, unspecified cervical region 06/28/2018 01/10/2019 PAO Shell Problem 2018-06-28 05:51:31 01-10 11:38:24 2019-01-10 11:38:24 [facility] Allergies, Adverse Reactions, Alerts Allergy Name Allergy Type Status Severity Reaction(s) Onset Date Inacti ve Date Treating Clinician Comments Source Penicillin Allergy to Substance Active 2019-01-01 00:00:00 [facility] penicillin Allergy to Substance Active Mild rash 2018-11-01 00:00:00 [facility] Penicillin Propensity to adverse reactions to drug Active Nausea and Vomiting 2017-09-25 00:00:00 Gonzalez Chidi Penicillins DA Active U 2016-11-27 00:00:00 [facility] Family History Family Member Diagnosis Comments Start Date Stop Date Source Natural brother Arthritis [place] [facility] Natural brother Stroke [facility] alth Natural father Arthritis [facility] Natural father Heart [facility] Natural mother Arthritis [place] [facility] Natural mother Diabetes [facility] Natural mother Heart [facility] Social History Social Habit Start Date Stop Date Quantity Comments Source History of tobacco use Current smoker [facility] Sex Assigned [facility] Alcohol intake 2019-01-09 00:00:00 2019-01-09 00:00:00 Current drinker of alcohol (finding) [facility] History SDOH Food Worry 2017-09-25 00:00:00 2017-09-25 00:00:00 1 [facility] History SDOH Food Scarcity 2017-09-25 00:00:00 2017-09-25 00:00:00 1 [facility] Alcohol Comment 2017-09-25 00:00:00 2017-09-25 00:00:00 social [facility] Smoking Status Start Date Stop Date Source Former smoker 2019-01-09 00:00:00 2019-01-09 00:00:00 [facility] ealth Medications Ordered Medication Name Filled Medication Name Start Date Stop Da te Current Medication? Ordering Clinician Indication Dosage Frequency Signature (SIG) Comments Components Source Docusate Sodium (Colace) 100 Mg Cap Docusate Sodium (Colace) 100 Mg Cap 2018-11-05 00:00:00 Yes Anum Hicks Cook Pressure 100 Twice A Day [facility] Metolazone 5 Mg Tablet Metolazone 5 Mg Tablet 2018-11-05 00:00:00 Yes Anum Hicks Cook Pressure 5 Daily [facility] Potassium Chloride (K Dur*) 10 Meq Tabcr, 20 Meq Oral Potassium Chloride (K Dur*) 10 Meq Tabcr, 20 Meq Oral 2018-11-05 00:00:00 2019-03-20 00:00:00 No Anum Hicks Cook Pressure 20 Twice A Day [facility] Baclofen 10 Mg Tablet Baclofen 10 Mg Tablet 2018-06-23 00:00:00 Yes Luis Thomas Cook Pressure 5 Three Times A Day as needed for Muscle S pasms [facility] Tizanidine Hcl 4 Mg Capsule, 4 Mg Oral Tizanidine Hcl 4 Mg C apsule, 4 Mg Oral 2018-06-23 00:00:00 2018-06-23 00:00:00 No Luis Thomas Cook Pressure 4 Three Times A Day as needed for Muscle Spasms [facility] rivaroxaban (XARELTO) 20 mg tablet 2017-09-25 00:00:00 Yes 20mg Take 1 tablet by mouth daily (with dinner). [facility] rosuvastatin (CRESTOR) 40 mg tablet 2017-09-25 00:00:00 Yes 40mg Take 1 tablet by mouth at bedtime nightly. [facility] glipiZIDE (GLUCOTROL) 5 mg tablet 2017-09-25 00:00:00 Yes 5mg Q.5D Take 1 tablet by mouth 2 times daily (before meals). [facility] metFORMIN (GLUCOPHAGE) 1,000 mg tablet 2017-09-25 00:00:00 Yes 1000mg Take 1 tablet by mouth 2 times daily (with meals). [facility] tamsulosin (FLOMAX) 0.4 mg extended release capsule 09-25 00:00:00 Yes .4mg QD Take 1 capsule by mouth daily. [facility] metOLazone (ZAROXOLYN) 2.5 mg tablet 2017-09-25 00:00:00 Ye s 2.5mg QD Take 1 tablet by mouth daily. [facility] allopurinol (ZYLOPRIM) 300 mg tablet 2017-09-25 00:00:00 Ye s 300mg QD Take 1 tablet by mouth daily. [facility] pantoprazole (PROTONIX) 40 mg delayed release tablet 2 00:00:00 Yes 40mg QD Take 1 tablet by mouth daily. [facility] isosorbide mononitrate (IMDUR) 60 mg extended release tablet 2017-09-25 00:00:00 Yes 60mg QD Take 1 tablet by mouth daily. [facility] metoprolol tartrate (LOPRESSOR) 50 mg tablet 2017-09-25 00:00:00 Yes 75mg Q.5D Take 1.5 tablets by mouth 2 times daily. [facility] losartan (COZAAR) 100 mg tablet 2017-09-25 00:00:00 Yes 100mg QD Take 1 tablet by mouth daily. [facility] digoxin (LANOXIN) 125 mcg tablet 2017-09-25 00:00:00 Yes 125ug QD Take 1 tablet by mouth daily. [facility] colchicine (COLCRYS) 0.6 mg tablet 2017-09-25 00:00:00 Yes .6mg QD Take 1 tablet by mouth daily. [facility] furosemide (LASIX) 20 mg tablet 2017-09-25 00:00:00 Yes 40mg Q.5D Take 2 tablets by mouth 2 times daily. [facility] potassium chloride (KLOR-CON M20) 20 mEq extended release ta blet 2017-09-25 00:00:00 Yes 20meq Q.5D Take 1 tablet by mouth 2 time s daily. [facility] oxybutynin (DITROPAN) 5 mg tablet 2017-09-25 00:00:00 Yes 5mg Take 1 tablet by mouth 3 times daily. [facility] gabapentin (NEURONTIN) 300 mg capsule 2017-09-25 00:00:00 Yes Neuropathy 300mg Take 1 capsule by mouth at bedtime nightly. [facility] Albuterol Sulfate (Proair Hfa Inhaler*) 8.5 Gm Inh Alb uterol Sulfate (Proair Hfa Inhaler*) 8.5 Gm Inh Yes 1 As Needed [facility] Allopurinol 300 Mg Tablet Allopurinol 300 Mg Tablet Yes 300 Daily [facility] Digoxin 125 Mcg Tablet Digoxin 125 Mcg Tablet Yes .125 Daily [facility] Furosemide 40 Mg Tablet Furosemide 40 Mg Tablet Yes 40 Every 12 Hours [facility] Glipizide 5 Mg Tablet Glipizide 5 Mg Tablet Yes 10 Twice A Day [facility] Hydrocodone Bit/Acetaminophen (Hydrocodon-Acetaminophn 10-325) 1 Each Tablet Hydrocodone Bit/Acetaminophen (Hydrocodon-Acetaminophn 10-325) 1 Each Tablet Yes 1 Every 6 Hours [facility] Lactulose Lactulose Yes [facility] Linagliptin/Metformin Hcl (Jentadueto 2.5 Mg-1000 Mg T ab) 1 Each Tablet Linagliptin/Metformin Hcl (Jentadueto 2.5 Mg-1000 Mg Tab) 1 Each Tablet Yes 1 Twice A Day [facility] Linzess Linzess Yes 145 Daily [facility] Losartan Potassium 100 Mg Tablet Losartan Potassium 100 Mg Tablet Yes 100 Daily [facility] Metoprolol Tartrate 50 Mg Tablet Metoprolol Tartrate 50 Mg Tablet Yes 100 Twice A Day [facility] [place]-3 Fatty Acids/Fish Oil (Fish Oil 1,000 Mg Capsul e) 1 Each Capsule [place]-3 Fatty Acids/Fish Oil (Fish Oil 1,000 Mg Capsule) 1 Each Capsule Yes 1 Twice A Day [facility] Potassium Chloride (Klor-Con M15) 15 Meq Tab.er.prt Po tassium Chloride (Klor-Con M15) 15 Meq Tab.er.prt Yes 1 Daily [facility] Rivaroxaban (Xarelto) 20 Mg Tablet Rivaroxaban (Xarelto) 20 Mg Tablet Yes 20 Daily [facility] Rosuvastatin Calcium (Crestor) 10 Mg Tab Rosuvastatin Calcium (Crestor) 10 Mg Tab Yes 40 Daily [facility] Tamsulosin Hcl 0.4 Mg Cap.er.24h Tamsulosin Hcl 0.4 Mg Cap.er.24h Yes .4 Daily [facility] Toujeo Toujeo Yes 10 Daily Am [facility] Metolazone 5 Mg Tablet, 5 Mg Oral Metolazone 5 Mg Tablet, 5 Mg O ral 2019-03-20 00:00:00 No 5 Daily [facility] Niacin 500 Mg Capsule.er, 500 Mg Oral Niacin 500 Mg Capsule.er, 500 Mg Oral 2019-03-20 00:00:00 No 500 Bedtime [facility] Cyclobenzaprine Hcl 10 Mg Tablet, 10 Mg Oral Cyclobenz aprine Hcl 10 Mg Tablet, 10 Mg Oral 2018-12-26 00:00:00 No 10 Bedtime [facility] Diazepam 5 Mg Tablet, 10 Mg Oral Diazepam 5 Mg Tablet, 10 Mg Ora l 2018-12-26 00:00:00 No 10 Every 8 Hours C [facility] Isosorbide Mononitrate 20 Mg Tablet, 60 Mg Oral Isosor bide Mononitrate 20 Mg Tablet, 60 Mg Oral 2018-12-26 00:00:00 No 60 Daily [facility] Levothyroxine Sodium 50 Mcg Tablet, 25 Mcg Oral Levoth yroxine Sodium 50 Mcg Tablet, 25 Mcg Oral 2018-12-26 00:00:00 No 25 Vikas y [facility] Linagliptin/Metformin Hcl (Jentadueto 2.5 Mg-500 Mg Ta b) 1 Each Tablet, Linagliptin/Metformin Hcl (Jentadueto 2.5 Mg-500 Mg Tab) 1 Each Tablet, 2018-12-26 00:00:00 No Twice A Day [facility] Naproxen 250 Mg Tablet, 250 Mg Oral Naproxen 250 Mg Tablet, 250 Mg Oral 2018-12-26 00:00:00 No 250 Every 12 Hours [facility] Tadalafil (Cialis) 2.5 Mg Tablet, 7 Mg Oral Tadalafil (Cialis) 2.5 Mg Tablet, 7 Mg Oral 2018-12-26 00:00:00 No 7 Daily [facility] Potassium Chloride 10 Meq Tab.er.prt, 10 Meq Oral Pota ssium Chloride 10 Meq Tab.er.prt, 10 Meq Oral 2018-11-05 00:00:00 No 10 Daily [facility] Metolazone 5 Mg Tablet, 2.5 Mg Oral Metolazone 5 Mg Tablet, 2.5 Mg Oral 2018-06-23 00:00:00 No 2.5 Daily [facility] Pregabalin (Lyrica) 50 Mg Cap, 50 Mg Oral Pregabalin ( Lyrica) 50 Mg Cap, 50 Mg Oral 2018-06-23 00:00:00 No 50 Three Times A Day [facility] Cefdinir 250 Mg/5 Ml Susp.recon, 300 Mg Oral Cefdinir 250 Mg/5 Ml Susp.recon, 300 Mg Oral 2017-11-16 00:00:00 No 300 Twice A Day [facility] Colchicine (Colcrys) 0.6 Mg Tablet, 0.6 Mg Oral Colchi cine (Colcrys) 0.6 Mg Tablet, 0.6 Mg Oral 2017-11-16 00:00:00 No .6 Vikas y [facility] Metaxalone 800 Mg Tablet, 800 Mg Oral Metaxalone 800 Mg Tablet, 800 Mg Oral 2017-11-16 00:00:00 No 800 As Needed [facility] Sertraline Hcl 50 Mg Tablet, 50 Mg Oral Sertraline Hcl 50 Mg Tablet, 50 Mg Oral 2017-10-31 00:00:00 No 50 Daily [facility] Tramadol Hcl (Ultram 50MG*) 50 Mg Tab, 50 Mg Oral Tram adol Hcl (Ultram 50MG*) 50 Mg Tab, 50 Mg Oral 2017-10-31 00:00:00 No 50 As Ne eded [facility] Allopurinol 100 Mg Tablet, 100 Mg Oral Allopurinol 100 Mg Tablet , 100 Mg Oral 2016-01-26 00:00:00 No 100 Daily [facility] Fluticasone/Salmeterol (Advair 250-50 Diskus) 1 Each D isk.w.dev, Fluticasone/Salmeterol (Advair 250-50 Diskus) 1 Each Disk.w.dev, 2016-01-26 00:00:00 No [facility] Hydrochlorothiazide 25 Mg Tablet, 25 Mg Oral Hydrochlo rothiazide 25 Mg Tablet, 25 Mg Oral 2016-01-26 00:00:00 No 25 Daily [facility] Immunizations Ordered Immunization Name Filled Immunization Name Date Status Comments Source Influenza <Unspecified> 2017-09-14 00:00:00 Completed [facility] Procedures Procedure Date / Time Performed Performing Clinician [facility] e Computed tomography of cervical spine without contrast 09-24 00:00:[facility] of thoracic spine without contrast 09-24 00:00:00 NADEGEMNChristopher [facility] extremity upper wo contrast 2019-09-24 00:00:[address] [facility] COLONOSCOPY W/LESION REMOVAL 2019-03-21 00:00:00 NAV KIDD [facility] Plan of Care Planned Activity Planned Date Details Comments Source Future Scheduled Test 2020-05-07 00:00:00 IMM Influenza Seas onal May to October (>/= 19 yrs) [code = IMM Influenza Seasonal May to October (>/= 19 yrs)] [facility] Scheduled Test 2018-09-25 00:00:00 DM Foot Exam (Year ly) [code = DM Foot Exam (Yearly)] [facility] Scheduled Test 2018-09-25 00:00:00 Hemoglobin A1c viola surement (procedure) [code = 92675439] [facility] Scheduled Test 2013-10-12 00:00:00 IMM Pneumococcal A ge 65 and Up [code = IMM Pneumococcal Age 65 and Up] [facility] Scheduled Test 1998-10-12 00:00:00 Screening for crista gnant neoplasm of colon (procedure) [code = 105545269] [facility] Scheduled Test 1966-10-12 00:00:00 DM Retinal Exam (Y early) [code = DM Retinal Exam (Yearly)] [facility] Encounters Start Date/Time End Date/Time Encounter Type Admission Type Attendi [facility] Care Department Encounter ID Source 2020-05-04 08:00:00 2020-06-02 23:59:00 Outpatient Naomy Arellano [id number] 2020-02-06 08:51:00 2020-02-06 23:59:00 Outpatient Don Means [facility] M[facility] [id number] 2019-12-23 08:54:00 2019-12-23 23:59:00 Outpatient Samir Darwin Ashton MHHOIP MHHOIP [id number] 2019-09-24 19:53:00 2019-09-25 00:05:00 Departed Emergency Room [address] [facility] [id number] [facility] 2019-09-24 10:01:00 2019-09-24 23:59:00 Outpatient Don Means MHHOIP MHHOIP [id number] 2019-07-15 09:48:00 2019-07-15 23:59:00 Outpatient Don Means MHOIB MHOIB [id number] 2019-03-21 05:56:00 2019-03-21 05:56:00 Registered Surgical Day Care [facility] [id number] [facility] 2019-01-01 09:17:00 2019-01-01 10:15:00 Departed Emergency Room [facility] [id number] [facility] 2018-12-26 05:00:00 2018-12-26 05:00:00 Registered Clinic [facility] [id number] [facility] 2018-11-26 09:01:00 2018-11-26 23:59:00 Outpatient Don Means MHHOIP MHHOIP [id number] 2018-11-03 12:15:00 2018-11-05 09:22:00 Discharged Inpatient 1 JANE RIVAS [facility] [id number] [facility] 2018-07-02 10:40:00 2018-07-02 23:59:00 Outpatient Don Means MHHOIP MHHOIP [id number] 2018-06-23 15:49:00 2018-06-23 19:49:00 Departed Emergency Room 1 SUNI DING [facility] [id number] [facility] 2018-06-22 10:32:00 2018-06-22 23:59:00 Outpatient Don Means MHHOIP MHHOIP [id number] 2018-05-16 00:00:00 2018-05-16 00:00:00 Outpatient [facility] [id number] [facility] 2018-01-18 12:58:00 2018-01-18 23:59:00 Outpatient Don Means MHHOIP MHHOIP [id number] 2017-11-21 09:51:00 2017-11-21 09:51:00 Registered Surgical Day Care [facility] [id number] [facility] 2017-11-09 00:00:00 2017-11-09 00:00:00 Outpatient [facility] [id number] [facility] 2017-11-02 14:39:00 2017-11-04 11:05:00 Discharged Inpatient ER HOLLY RODAS [facility] [id number] [facility] 2017-10-27 05:00:00 2017-10-27 05:00:00 Registered Clinic WHITNEY LOPEZ [facility] [id number] [facility] 2017-10-23 00:00:00 2017-10-23 00:00:00 Outpatient [facility] [id number] [facility] 2017-10-23 00:00:00 2017-10-23 00:00:00 Outpatient [facility] [id number] [facility] 2017-09-25 11:19:11 2017-09-25 11:19:11 Outpatient [facility] [id number] [facility] 2017-09-25 09:35:29 2017-09-25 09:35:29 Outpatient [facility] [id number] [facility] 2015-12-31 09:23:00 2015-12-31 23:59:00 Outpatient [facility] [id number] Results Test Description Test Time Test Comments Results Result Comments Source HAND THREE VIEWS BILATERAL 2020-02-27 16:36:00 [facility] [address] [address] Patient Name: SHIVANI STEWART MR #: [id number] : 1945 Age/Sex: 74/M Req #: [id number] Adm Physician: Ordered by: LESLI ESPOSITO MD Report #: [id number] Location: [facility] Room/Bed: Procedure: [id number] DX/HAND THREE VIEWS BILATERAL Exam Date: 02/27/20 Exam Time: 1045 REPORT STATUS: Signed EXAMINATION: HAND THREE VIEWS BILATERAL INDICATION: Bilateral hand pain COMPARISON: None FINDINGS: Left hand: No acute fracture or dislocation. Minimal lateral subluxation of the index digit distal phalanx. Alignment is otherwise anatomic. Soft tissues appear unremarkable. Scattered atherosclerotic arterial calcifications. Right hand: No acute fracture or dislocation. Old healed fourth metacarpal fracture. Small high density fragments in the overlying soft tissues consistent with small retained foreign bodies. Mild scattered degenerative changes. Mild soft tissue swelling of the second and third digits. Atherosclerotic arterial calcifications. IMPRESSION: No acute osseous injury of either hand. Soft tissue swelling of the right second and third digits. Old healed fractures of the right fourth metacarpal and punctate retained foreign bodies. Scattered degenerative changes and atherosclerotic arterial calcifications. Signed by: Liz Powers MD on 02/27/2020 4:40 PM Dictated By: LIZ POWERS MD 1640 Transcribed By: ERIN on 02/27/20 1640 COPY TO: LESLI ESPOSITO MD GLUBED 2020-01-13 08:42:00 Test Item GLUBED (test code = GLUBED) 182 mg/dL 74-106 H Performed by certified sub arc operator at [facility] Novel Coronavirus 2019 [id number] 06:20:00* Test Item Value Reference Range Interpretation Comments Novel Coronavirus 2019 Inhouse (test code = COVNONPUI) Negative Negative Testing Criteria: Preprocedure ScreeningComments: 01/13/20Novel Coronavirus 2019 [id number] 06:20:00* Test Item Value Reference Range Interpretation Comments Novel Coronavirus 2019 Inhouse (test code = COVNONPUI) Negative Negative Testing Criteria: Preprocedure ScreeningComments: 01/13/20CBC W/AUTO DIFF 2020-01-09 13:44:00* Test Item Value Reference Range Interpretation Comments WHITE BLOOD CELL (test code = WBC) 9.4 K/mm3 4.5-12.5 N RED BLOOD CELL (test code = RBC) 4.74 mill/mm3 4.0-5.8 N HEMOGLOBIN (test code = HGB) 11.5 gram/dL 13.0-17.5 L HEMATOCRIT (test code = HCT) 37.8 % 42.0-52.0 L MEAN CELL VOLUME (test code = MCV) 79.7 fL 80-98 L MEAN CELL HGB (test code = MCH) 24.3 picogram 27.0-33.0 L MEAN CELL HGB CONCETRATION (test code = MCHC) 30.4 gram/dL 33.0-36. 0 L RED CELL DISTRIBUTION WIDTH (test code = RDW) 19.7 % 11.6-16. 2 H RED CELL DISTRIBUTION WIDTH SD (test code = RDW-SD) 54.6 fL 37 .0-51.0 H PLATELET COUNT (test code = PLT) 175 K/mm3 150-450 N MEAN PLATELET VOLUME (test code = MPV) 9.9 fL 6.7-11.0 N NEUTROPHIL % (test code = NT%) 77.2 % 39.0-69.0 H IMMATURE GRANULOCYTE % (test code = IG%) 0.3 % 0.0-5.0 N LYMPHOCYTE % (test code = LY%) 13.5 % 25.0-55.0 L MONOCYTE % (test code = MO%) 8.5 % 0.0-10.0 N EOSINOPHIL % (test code = EO%) 0.2 % 0.0-5.0 N BASOPHIL % (test code = BA%) 0.3 % 0.0-1.0 N NUCLEATED RBC % (test code = NRBC%) 0.0 % 0-0 N NEUTROPHIL # (test code = NT#) 7.27 K/mm3 1.8-7.7 N IMMATURE GRANULOCYTE # (test code = IG#) 0.03 x10 3/uL 0-0.03 N LYMPHOCYTE # (test code = LY#) 1.27 K/mm3 1.0-5.0 N MONOCYTE # (test code = MO#) 0.80 K/mm3 0-0.8 N EOSINOPHIL # (test code = EO#) 0.02 K/mm3 0.0-0.5 N BASOPHIL # (test code = BA#) 0.03 K/mm3 0.0-0.2 N NUCLEATED RBC # (test code = NRBC#) 0.00 K/mm3 0.0-0.1 N MANUAL DIFF REQUIRED (test code = MDIFF) NO BASIC METABOLIC [id number] 13:29:00* Test Item Value Reference Range Interpretation Comments SODIUM (test code = NA) 138 mmol/L 136-145 N POTASSIUM (test code = K) 4.1 mmol/L 3.5-5.1 N CHLORIDE (test code = CL) 99.0 mmol/L 98-107 N CARBON DIOXIDE (test code = CO2) 31.0 mmol/L 21-32 N ANION GAP (test code = GAP) 12.1 10-20 N GLUCOSE (test code = GLU) 187 mg/dL 74-106 H BLOOD UREA NITROGEN (test code = BUN) 24 mg/dL 7-18 H GLOMERULAR FILTRATION RATE (test code = GFR) 50 mL/min >=60 Estimated GFR by using Modified MDRD formula.Chronic kidney disease is defined as either kidney damageor GFR <60 mL/min/1.73 m2 for >3 months. CREATININE (test code = CREAT) 1.40 mg/dL 0.7-1.3 H BUN/CREATININE RATIO (test code = BUN/CREA) 17.1 10-20 N CALCIUM (test code = CA) 8.7 mg/dL 8.5-10.1 N BASIC METABOLIC [id number] 13:25:00* Test Item Value Reference Range Interpretation Comments SODIUM (test code = NA) 138 mmol/L 136-145 N POTASSIUM (test code = K) 4.1 mmol/L 3.5-5.1 N CHLORIDE (test code = CL) 99.0 mmol/L 98-107 N CARBON DIOXIDE (test code = CO2) mmol/L 21-32 ANION GAP (test code = GAP) 10-20 GLUCOSE (test code = GLU) mg/dL 74-106 BLOOD UREA NITROGEN (test code = BUN) mg/dL 7-18 GLOMERULAR FILTRATION RATE (test code = GFR) mL/min >=60 CREATININE (test code = CREAT) mg/dL 0.7-1.3 BUN/CREATININE RATIO (test code = BUN/CREA) 10-20 CALCIUM (test code = CA) mg/dL 8.5-10.1 PROTHROMBIN [id number] 13:12:00* Test Item Value Reference Range Interpretation Comments PROTHROMBIN TIME PATIENT (test code = PTP) 22.5 seconds 9.0-14.0 H INTERNATIONAL NORMAL RATIO (test code = INR) 1.9 0.8-1.2 H The therapeutic range for oral anticoagulant therapy formost indications is an international normalized ratio (INR)of between 2.0 and 3.0. The recommended therapeutic INRrange for various clinical situations is listed below: Clinical Situation INR range Pulmonary e mbolism treatment (2.0-3.0)Venous thrombosis treatmentVenous thrombosis prophylaxis (high risk surgery)Prevention of systemic embolism from: Acute myocardial infarction Valvular heart disease Atrial fibrillation Mechanical prosthetic heart valves (2.5-3.5) IS PATIENT ON ANTICOAGULANTS? NTHROMBOPLASTIN TIME [id number] 13:12:00* Test Item Value Reference Range Interpretation Comments THROMBOPLASTIN TIME PARTIAL (test code = PTT) 37.6 seconds 23.0-37. 0 H IS PATIENT ON ANTICOAGULANTS? N- XR CHEST 2 [id number] 12:12:00 FAX: Don Weeks MD [phone] [place]: O St: PRE FAX: Fam June MD [phone] Name: SHIVANI STEWART [facility] : 10/12/1946 Age/S: 73/M [address] [facility] Unit #: [id number] Loc: [place] [address] Phys: Fam Kauffman MD Acct: [id number] Dis Date: Status: PRE SDC PHONE #: [phone] Exam Date: 01/09/2020 1156 FAX #: [phone] Reason: PRE OP EXAMS: CPT CODE: [id number] XR CHEST 2 V 79274 HISTORY: Preop. COMPARISON: May 24, 2019. Location: [facility]. AP and lateral view of the chest: No acute infiltrates, effusion or congestion. Lung scarring. Cardio megaly. IMPRESSION: No acute infiltrates, effu urbano or congestion. Electronically Signed by Jeana Westbrook on at 1212 Reported and signed by: Mookie Goodman CC: Don Means; Fam Kauffman Technologist: RT Deejay Benz (R) Date/Time/By: 01/09/2020 (1212) : By: [email or web address] Orig Print D/T: S : 01/09/2020 (7050) PAGE 1 Signed Report ELBOW LEFT [id number] 19:16:[facility] [place] [address] [facility] Name: SHIVANI ORDONEZ MR #: [id number] : 10/12/1946 Age/Sex: 73/M Req #: [id number] Adm Physician: Ordered by: LUIS THOMAS HEAD COOK Report #: [id number] Location: ER Room/Bed: Procedure: 0412-0 019 DX/ELBOW LEFT COMPLETE Exam Date: 11/17/19 Exam Time: 1700 REPORT STATUS: Signed ELBOW LEFT COMPLETE - 3 views HISTORY: Pain COMPARISON: None available. FINDINGS: Bones: No acute displaced fracture. Osseous alignment is within normal limits. Small olecranon spur. Joints: Small joint e ffusion. Degenerative changes of the elbow joint. Soft tissues: The sof t tissues appear unremarkable. IMPRESSION: Occult nondisplaced fractu re of the radial head with small left elbow joint effusion. Signed by: Dr Xiomara Delacruz MD on 11/17/2019 7:18 PM Dictated By: WOLFGANG DELACRUZ MD E lectronically Signed By: WOLFGANG DELACRUZ MD on 11/17/191917 Transcribed By: MARVA DOW on 11/17/191917 COPY TO: LUIS THOMAS HEAD COOK CT THORACIC SPINE [id number] 21:45:00 [place] [address] Patient Name: SHIVANI ORDONEZ MR #: [id number] : 10/12/1946 Age/Sex: 72/M Req #: [id number] Adm Physician: Ordered by: TARIK LANE DO Report #: [id number] Location: Room/Bed: Procedure: 0218-[address]/CT THORACIC SPINE WO Exam Date: 09/24/19 Exam Time: 2100 REPORT STATUS: Signed History: Pain in left shoulder and neck. Comparison studies: None Te chnique: Axial images were obtained through the cervical and thoracic region. . Coronal and sagittal images reconstructed from the axial data. Dose modula tion, iterative reconstruction, and/or weight based adjustment of the mA/kV wa s utilized to reduce the radiation dose to as low as reasonably achievable. Intravenous contrast: None Findings: Fractures: No acute cervical or thoracic spine fracture. Incidental age indeterminate fracture deformity of posterior aspect of left 11th rib and right 10th rib near the costovertebral j unction. Soft tissue injuries: None. Atlantoaxial articulation: Intact. Alignment: Loss of normal cervical lordosis is either positional or due to mu scle spasm.Normal thoracic kyphosis No scoliosis. No subluxation. Cervicomedul marck junction: No abnormalities. The foramen magnum is patent. Soft tissues: A therosclerotic calcification in aorta and its branches. Paraspinal muscles: Un remarkable Vertebrae: No fractures, infection or neoplasm. Degener ative changes: Cervical spine: C2-C3: Mild right foraminal stenosis due to facet and uncovertebral arthrosis. C3-C4: Moderate bilateral foraminal stenosi s due to facet and uncovertebral arthrosis. C4-C5: Posterior disc osteophyte complex results in mild canal stenosis. Moderate left foraminal stenosis due to facet and uncovertebral arthrosis. C5-C6: Mild left foraminal stenosis due to uncovertebral arthrosis. Thoracic spine: Multilevel degenerative disc dis ease, multilevel Schmorl's node and bridging anterior vertebral osteophytes re presents diffuse idiopathic skeletal hyperostosis. No significant canal sten osis. IMPRESSION: 1. No acute thoracic or cervical spine fracture or dislocation. Loss of normal cervical lordosis is either positional or due to m uscle spasm. 2. Ligament, spinal cord and or vascular abnormalities cannot be excluded on the basis of this examination. 3. Cervical and thoracic spondylosis as detailed above. 4. Incidental age indeterminate, possible c hronic fracture deformity of right 10th and left 11th rib. Signed b y: Dr. Tangela Hill M.D. on 09/24/2019 10:03 PM Dictated By: TANGELA HILL MD 02 Transc ribed By: ERIN on 09/24/192202 COPY TO: TARIK LANE DO CT CERVICAL SPINE [id number] 21:45:00 [place] [address] Patient Name: SHIVANI ORDONEZ MR #: [id number] : 10/12/1946 Age/Sex: 72/M Req #: [id number] Adm Physician: Ordered by: TARIK LANE DO Report #: [id number] Location: ER Room/Bed: Procedure: 0218-[address]/CT CERVICAL SPINE WO Exam Date: 09/24/19 Exam Time: 2099 REPORT STATUS: Signed History: Pain in left shoulder and neck. Comparison studies: None Te chnique: Axial images were obtained through the cervical and thoracic region. . Coronal and sagittal images reconstructed from the axial data. Dose modula tion, iterative reconstruction, and/or weight based adjustment of the mA/kV wa s utilized to reduce the radiation dose to as low as reasonably achievable. Intravenous contrast: None Findings: Fractures: No acute cervical or thoracic spine fracture. Incidental age indeterminate fracture deformity of posterior aspect of left 11th rib and right 10th rib near the costovertebral j unction. Soft tissue injuries: None. Atlantoaxial articulation: Intact. Alignment: Loss of normal cervical lordosis is either positional or due to mu scle spasm.Normal thoracic kyphosis No scoliosis. No subluxation. Cervicomedul marck junction: No abnormalities. The foramen magnum is patent. Soft tissues: A therosclerotic calcification in aorta and its branches. Paraspinal muscles: Un remarkable Vertebrae: No fractures, infection or neoplasm. Degener ative changes: Cervical spine: C2-C3: Mild right foraminal stenosis due to facet and uncovertebral arthrosis. C3-C4: Moderate bilateral foraminal stenosi s due to facet and uncovertebral arthrosis. C4-C5: Posterior disc osteophyte complex results in mild canal stenosis. Moderate left foraminal stenosis due to facet and uncovertebral arthrosis. C5-C6: Mild left foraminal stenosis due to uncovertebral arthrosis. Thoracic spine: Multilevel degenerative disc dis ease, multilevel Schmorl's node and bridging anterior vertebral osteophytes re presents diffuse idiopathic skeletal hyperostosis. No significant canal sten osis. IMPRESSION: 1. No acute thoracic or cervical spine fracture or dislocation. Loss of normal cervical lordosis is either positional or due to m uscle spasm. 2. Ligament, spinal cord and or vascular abnormalities cannot be excluded on the basis of this examination. 3. Cervical and thoracic spondylosis as detailed above. 4. Incidental age indeterminate, possible c hronic fracture deformity of right 10th and left 11th rib. Signed b y: Dr. Tangela Hill M.D. on 09/24/2019 10:03 PM Dictated By: TANGELA HILL MD 02 Transc ribed By: ERIN on 09/24/192202 COPY TO: TARIK LANE DO CT SHOULDER LEFT [id number] 21:44:00 [place] [address] Patient Name: SHIVANI ORDONEZ MR #: [id number] : 10/12/1946 Age/Sex: 72/M Req #: [id number] Adm Physician: Ordered by: TARIK LANE DO Report #: [id number] Location: ER Room/Bed: Procedure: 0218-[address]/CT SHOULDER LEFT WO Exam Date: 09/24/19 Exam Time: 2100 REPORT STATUS: Signed Procedure: Thin collimation CT of the left shoulder without contrast was perf ormed with multiplanar reconstructions. RADIATION DOSE: Total DLP: 1 292.41 mGy*cm Estimated effective dose: (DLP x 0.015 x size factor) mSv CTDIvol has been reviewed. It is below the limits set by the Radiation P rotocol Committee (RPC). Indications: Pain, history of gout Comparison s: None Findings: Multiplanar reconstructions were performed in order to more optimally visualize bony pathology and reduce radiation dose. Bon es: No evidence of fracture or dislocation. Moderate degenerative changes of t he humeral head. No degenerative changes of the glenoid. Mild degenerative josh nges of the glenohumeral joint. No joint effusions. No tendinous calcification s. Mild degenerative changes of the cervical spine. Visualized ribs are normal . No lytic or blastic lesions. Lymph nodes: No enlarged axillary lymph node s. Visualized portion of the mediastinum is normal. Lungs: No nodules or infiltrates in the visualized portions. Soft tissues: No mass. IMPRESS ION: Moderate degenerative changes of the left humeral head. Mild degenerat leah changes of the left AC joint. No dislocation. Signed by: Dr. Satish Tadeo MD on 09/24/2019 9:52 PM Dictated By: SATISH TADEO MD Ruby ctronically Signed By: SATISH TADEO MD on 09/24/192151 Transcribed By: NIKKI LI on 09/24/192151 COPY TO: TARIK LANE DO - CT CHEST W/O [id number] 13:44:00 Name: SHIVANI STEWART [facility] : 1945 Age/S: 73 / M [address] Unit #: [id number] Loc: [place] [address] Phys: Manoj Cooper MD Acct: [id number] Dis Date: Status: REG CLI PHONE #: [phone] Exam Date: 09/03/2019 1034 FAX #: [phone] Reason: PULMONARY DISEASE EXAMS: CPT CODE: [id number] CT CHEST W/O CONTRAST 30404 REASON FOR EXAM: PULMONARY DISEASE EXAM ORDER DATE: 09/03/2019 10:21 AM Ordering M.D.: Manoj Cooper MD PROCEDURE: - CT CHEST W/O CONTRAST Comparison:Chest x-ray May 24, [address] images of the chest were obtained without IV contrast. Reconstructed sagittal and coronal images of the chest were provided for interpretation. Dose reduction techniques were applied. FINDINGS: The absence of IV contrast limits the sensitivity of this exam for detecting soft tissue pathology and differentiating atelectasis from consolidations. Visualized neck: Grossly normal Airways, Lungs and Pleura: There is mild subsegmental atelectasis in the dependent lungs. Additionally there is mild intralobular septal thickening and groundglass opacities in the lower lobes. Heart, great vessels, pulmonary vessels, mediastinum: Moderate to severe calcified atherosclerosis of the thoracic aorta. Severe three-vessel coronary calcifications are seen. Cardiac chambers are normal in caliber. Pulmonary trunk and thoracic aorta are nor mal in caliber Lymph nodes: No axillary or internal mammary adenopathy. Hilar lymph nodes are suboptimally evaluated due to the absenc e of IV contrast. There are multiple subcentimeter mediastinal lymph nodes however these lymph nodes demonstrate normal morphology. Mu sculoskeletal/chest wall: There are degenerative changes throughout the sp ine. Visualized upper abdomen: Extensive atherosclerosis of the ab dominal aorta is seen. There is also severe atherosclerosis the proximal superior mesenteric artery. The solid organs appear to be grossly wit hin normal limits PAGE 1 Signed Report (CONTINUED) Name: SHIVANI STEWART [facility] : 1945 Age/S: 73 / M [address] [facility] Unit #: [id number] Loc: [place] [address] Phys: Manoj Cooper MD Acct: [id number] Dis Date: Status: REG CLI PHONE #: [phone] Exam Date: 09/03/2019 1034 FAX #: [phone] Reason: PULMONARY DISEASE EXAMS: CPT CODE: [id number] CT CHEST W/O CONTRAST 33655 <Continued> IMPRESSION: Interlobular septal thic kening with groundglass opacities in the lower lobes may represent mild pulmonary edema. Severe coronary and moderate to severe aortic atheroscl erosis. Location: [facility] at 1344 Reported and signed by : Shyam Wasserman MD CC: Don Means; Manoj Cooper MD; Fam Kauffman Technologist:Vijay Hernandez RT(R),(MR),(CT); CTDI: DLP: Trnscb Date/Time: 09/03/2019 (6843) t.[email or web address] Orig Print D/T: S: 09/03/2019 (5730) PAGE 2 Signed Report PROTHROMBIN [id number] 11:16:00* Test Item Value Reference Range Interpretation Comments PROTHROMBIN TIME PATIENT (test code = PTP) 13.2 seconds 9.0-14.0 N INTERNATIONAL NORMAL RATIO (test code = INR) 1.1 0.8-1.2 N The therapeutic range for oral anticoagulant therapy formost indications is an international normalized ratio (INR)of between 2.0 and 3.0. The recommended therapeutic INRrange for various clinical situations is listed below: Clinical Situation INR range Pulmonary e mbolism treatment (2.0-3.0)Venous thrombosis treatmentVenous thrombosis prophylaxis (high risk surgery)Prevention of systemic embolism from: Acute myocardial infarction Valvular heart disease Atrial fibrillation Mechanical prosthetic heart valves (2.5-3.5) CBC W/AUTO [id number] 11:07:00* Test Item Value Reference Range Interpretation Comments WHITE BLOOD CELL (test code = WBC) 10.8 K/mm3 4.5-12.5 N RED BLOOD CELL (test code = RBC) 4.56 mill/mm3 4.0-5.8 N HEMOGLOBIN (test code = HGB) 11.2 gram/dL 13.0-17.5 L HEMATOCRIT (test code = HCT) 36.3 % 42.0-52.0 L MEAN CELL VOLUME (test code = MCV) 79.6 fL 80-98 L MEAN CELL HGB (test code = MCH) 24.6 picogram 27.0-33.0 L MEAN CELL HGB CONCETRATION (test code = MCHC) 30.9 gram/dL 33.0-36. 0 L RED CELL DISTRIBUTION WIDTH (test code = RDW) 19.8 % 11.6-16. 2 H RED CELL DISTRIBUTION WIDTH SD (test code = RDW-SD) 56.0 fL 37 .0-51.0 H PLATELET COUNT (test code = PLT) 206 K/mm3 150-450 N MEAN PLATELET VOLUME (test code = MPV) 10.0 fL 6.7-11.0 N NEUTROPHIL % (test code = NT%) 77.2 % 39.0-69.0 H IMMATURE GRANULOCYTE % (test code = IG%) 0.5 % 0.0-5.0 N LYMPHOCYTE % (test code = LY%) 11.2 % 25.0-55.0 L MONOCYTE % (test code = MO%) 10.3 % 0.0-10.0 H EOSINOPHIL % (test code = EO%) 0.6 % 0.0-5.0 N BASOPHIL % (test code = BA%) 0.2 % 0.0-1.0 N NUCLEATED RBC % (test code = NRBC%) 0.0 % 0-0 N NEUTROPHIL # (test code = NT#) 8.34 K/mm3 1.8-7.7 H IMMATURE GRANULOCYTE # (test code = IG#) 0.05 x10 3/uL 0-0.03 H LYMPHOCYTE # (test code = LY#) 1.21 K/mm3 1.0-5.0 N MONOCYTE # (test code = MO#) 1.11 K/mm3 0-0.8 H EOSINOPHIL # (test code = EO#) 0.06 K/mm3 0.0-0.5 N BASOPHIL # (test code = BA#) 0.02 K/mm3 0.0-0.2 N NUCLEATED RBC # (test code = NRBC#) 0.00 K/mm3 0.0-0.1 N MANUAL DIFF REQUIRED (test code = MDIFF) NO BASIC METABOLIC [id number] 11:04:00* Test Item Value Reference Range Interpretation Comments SODIUM (test code = NA) 136 mmol/L 136-145 N POTASSIUM (test code = K) 3.8 mmol/L 3.5-5.1 N CHLORIDE (test code = CL) 97.0 mmol/L 98-107 L CARBON DIOXIDE (test code = CO2) 29.0 mmol/L 21-32 N ANION GAP (test code = GAP) 13.8 10-20 N GLUCOSE (test code = GLU) 211 mg/dL 74-106 H BLOOD UREA NITROGEN (test code = BUN) 45 mg/dL 7-18 H GLOMERULAR FILTRATION RATE (test code = GFR) 54 mL/min >=60 Estimated GFR by using Modified MDRD formula.Chronic kidney disease is defined as either kidney damageor GFR <60 mL/min/1.73 m2 for >3 months. CREATININE (test code = CREAT) 1.30 mg/dL 0.7-1.3 N BUN/CREATININE RATIO (test code = BUN/CREA) 34.4 10-20 H CALCIUM (test code = CA) 9.3 mg/dL 8.5-10.1 N BASIC METABOLIC [id number] 11:00:00* Test Item Value Reference Range Interpretation Comments SODIUM (test code = NA) 136 mmol/L 136-145 N POTASSIUM (test code = K) 3.8 mmol/L 3.5-5.1 N CHLORIDE (test code = CL) 97.0 mmol/L 98-107 L CARBON DIOXIDE (test code = CO2) mmol/L 21-32 ANION GAP (test code = GAP) 10-20 GLUCOSE (test code = GLU) mg/dL 74-106 BLOOD UREA NITROGEN (test code = BUN) mg/dL 7-18 GLOMERULAR FILTRATION RATE (test code = GFR) mL/min >=60 CREATININE (test code = CREAT) mg/dL 0.7-1.3 BUN/CREATININE RATIO (test code = BUN/CREA) 10-20 CALCIUM (test code = CA) mg/dL 8.5-10.1 - XR CHEST 2 [id number] 10:15:00 FAX: Fam June MD [phone] [place]: O St: PRE Name: SHIVANI OLIVARES [facility] : [birth year] Age/S: 73/M [address] [facility] Unit #: [id number] Loc: [place] [address] Phys: Fam Kauffman MD Acct: [id number] Dis Date: Status: PRE SDC PHONE #: [phone] Exam Date: 05/24/2019 0938 FAX #: [phone] Reason: PRE OP EXAMS: CPT CODE: [id number] XR CHEST 2 V 04675 REASON FOR EXAM: PRE OP Exam Order Date: 05/24/2019 9:19 AM Ordering M.D.: Fam Kauffman MD PROCEDURE: - XR CHEST 2 V COMPARISON: Chest radiograph September 2015 FINDINGS: The lungs are c lear. There is no pleural effusion or pneumothorax. Pulmonary vascularity is within normal limits. Cardiomediastinal silhouette is normal in size for technique. Atherosclerotic disease is present in the aortic arch. On the lateral view there appear to be calcifications in either the per icardium or in the ventricular wall. Degenerative changes ar e present in the spine. The visualized upper abdomen is within nor mal limits. IMPRESSION: The lungs are clear. Pericardial versus myocardial calcifications. These findings appear similar to the prior exam in 2016 and can be further assessed with a no nemergent CT scan of the chest. at 1015 Reported and signed by: Shyam Wasserman MD CC: Fam Kauffman chnologist: STUDENT TECHNOLOGIST; Carolann Cristina (R) Trnscrd Date/ Time/By: 05/24/2019 (1015) : By: [email or web address] Orig Print D/T: S: 05/24/20 19 (7375) PAGE 1 Signed Report Bedside [id number] 13:38:00* Test Item Value Reference Range Interpretation Comments Bedside Glucose (test code = 76674-8) 123 70-120 H Meter ID: [id number] [facility] Blood Count 2019-03-20 10:05:00* Test Item Value Reference Range Interpretation Comments White Blood Count (test code = 6690-2) 7.41 4.8-10.8 [facility] [id number] 10:05:00* Test Item Value Reference Range Interpretation Comments Red Blood Count (test code = 789-8) 4.44 4.3-5.7 [facility] HospitalHemoglobin2019-08-14 10:05:00* Test Item Value Reference Range Interpretation Comments Hemoglobin (test code = 26165-0) 10.6 14.0-18.0 L [facility] HospitalHematocrit2019-08-14 10:05:00* Test Item Value Reference Range Interpretation Comments Hematocrit (test code = 4544-3) 35.6 38.2-49.6 L [facility] HospitalMean Corpuscular [id number] 10:05:00* Test Item Value Reference Range Interpretation Comments Mean Corpuscular Volume (test code = 787-2) 80.2 81-99 L [facility] HospitalMean Corpuscular [id number] 10:05:00* Test Item Value Reference Range Interpretation Comments Mean Corpuscular Hemoglobin (test code = 785-6) 23.9 28-32 L [facility] HospitalMe Corpuscular Hemoglobin Concent 2019-03-20 10:05:00* Test Item Value Reference Range Interpretation Comments Mean Corpuscular Hemoglobin Concent (test code = 786-4) 29.8 31-35 L [facility] HospitalRed Cell Distribution [id number] 10:05:00* Test Item Value Reference Range Interpretation Comments Red Cell Distribution Width (test code = 87416-7) 19.5 11.7 -14.4 H [facility] HospitalPlatelet [id number] 10:05:00* Test Item Value Reference Range Interpretation Comments Platelet Count (test code = 777-3) 229 140-360 [facility] HospitalNeutrophils (%) (Auto)2019-03-20 10:05:00 * Test Item Value Reference Range Interpretation Comments Neutrophils (%) (Auto) (test code = 92019-4) 71.2 38.7-80.0 [facility] HospitalLymphocytes (%) (Auto)2019-03-20 10:05:00 * Test Item Value Reference Range Interpretation Comments Lymphocytes (%) (Auto) (test code = 736-9) 17.9 18.0-39.1 L [facility] HospitalMonocytes (%) (Auto)2019-03-20 10:05:00* Test Item Value Reference Range Interpretation Comments Monocytes (%) (Auto) (test code = 5905-5) 8.6 4.4-11.3 [facility] HospitalEosinophils (%) (Auto)2019-03-20 10:05:00 * Test Item Value Reference Range Interpretation Comments Eosinophils (%) (Auto) (test code = 713-8) 1.6 0.0-6.0 [facility] HospitalBasophils (%) (Auto)2019-03-20 10:05:00* Test Item Value Reference Range Interpretation Comments Basophils (%) (Auto) (test code = 706-2) 0.4 0.0-1.0 [facility] HospitalIM GRANULOCYTES %2019-03-20 10:05:00* Test Item Value Reference Range Interpretation Comments IM GRANULOCYTES % (test code = IM GRANULOCYTES %) 0.3 0.0- 1.0 [facility] HospitalNeutrophils # (Auto)2019-03-20 10:05:00* Test Item Value Reference Range Interpretation Comments Neutrophils # (Auto) (test code = 751-8) 5.3 2.1-6.9 [facility] HospitalLymphocytes # (Auto)2019-03-20 10:05:00* Test Item Value Reference Range Interpretation Comments Lymphocytes # (Auto) (test code = 38933-7) 1.3 1.0-3.2 [facility] HospitalMonocytes # (Auto)2019-03-20 10:05:00* Test Item Value Reference Range Interpretation Comments Monocytes # (Auto) (test code = 742-7) 0.6 0.2-0.8 [facility] HospitalEosinophils # (Auto)2019-03-20 10:05:00* Test Item Value Reference Range Interpretation Comments Eosinophils # (Auto) (test code = 711-2) 0.1 0.0-0.4 [facility] HospitalBasophils # (Auto)2019-03-20 10:05:00* Test Item Value Reference Range Interpretation Comments Basophils # (Auto) (test code = 704-7) 0.0 0.0-0.1 [facility] HospitalAbsolute Immature Granulocyte (auto 2019-03-20 10:05:00* Test Item Value Reference Range Interpretation Comments Absolute Immature Granulocyte (auto (hakan t code = Absolute Immature Granulocyte (auto) 0.02 0-0.1 [facility] HospitalBedside Geujyig5501-02-52 08:26:00* Test Item Value Reference Range Interpretation Comments Bedside Glucose (test code = 02051-2) 136 70-120 H Meter ID: [id number] Scott & White [facility] Center – Round Rockodium Level 2018-11-05 05:13:00* Test Item Value Reference Range Interpretation Comments Sodium Level (test code = 2951-2) 140 136-145 [facility] HospitalPotassium [id number] 05:13:00* Test Item Value Reference Range Interpretation Comments Potassium Level (test code = 2823-3) 3.5 3.5-5.1 [facility] HospitalChloride Yotxh5050-65-96 05:13:00* Test Item Value Reference Range Interpretation Comments Chloride Level (test code = 2075-0) 102 98-107 [facility] HospitalCarbon Dioxide Mrawb9327-64-24 05:13:00* Test Item Value Reference Range Interpretation Comments Carbon Dioxide Level (test code = 2028-9) 26 22-29 [facility] HospitalAnion [id number] 05:13:00* Test Item Value Reference Range Interpretation Comments Anion Gap (test code = 92653-5) 15.5 8-16 [facility] HospitalBlood Urea Dgyozxrv9168-88-05 05:13:00* Test Item Value Reference Range Interpretation Comments Blood Urea Nitrogen (test code = 3094-0) 40 7-26 H [facility] HospitalCreatinine2019-04-01 05:13:00* Test Item Value Reference Range Interpretation Comments Creatinine (test code = 2160-0) 1.65 0.72-1.25 H [facility] HospitalBUN/Creatinine Ylmzp7733-11-90 05:13:00* Test Item Value Reference Range Interpretation Comments BUN/Creatinine Ratio (test code = 3097-3) 24 6-25 [facility] HospitalEstimat Glomerular Filtration Rate 2018-11-05 05:13:00* Test Item Value Reference Range Interpretation Comments Estimat Glomerular Filtration Rate (test code = 453707694) 41 >60 L Ranges were taken from the National Kidney Disease Education Program and the [place] [facility] literature.Reference ranges:60 or greater: Ywiwtl51-71 ( for 3 consecutive months): Chronic kidney disease 15 or less: Kidney failureAspire Behavioral Health HospitalGlucose Tzrmc0850-16-29 05:13:00* Test Item Value Reference Range Interpretation Comments Glucose Level (test code = CFV3273) 151 74-118 H [facility] HospitalCalcium Qmglq7289-61-56 05:13:00* Test Item Value Reference Range Interpretation Comments Calcium Level (test code = 94611-2) 9.4 8.4-10.2 [facility] HospitalMagnesium Bgjed7186-06-13 05:13:00* Test Item Value Reference Range Interpretation Comments Magnesium Level (test code = 57103-9) 2.8 1.3-2.1 H [facility] HospitalB-Type Natriuretic Jthdxwq1382-80-03 05:13:00* Test Item Value Reference Range Interpretation Comments B-Type Natriuretic Peptide (test code = 38038-1) 194.7 0-100 H [facility] HospitalWhite Blood Ievmc6069-72-64 04:39:00* Test Item Value Reference Range Interpretation Comments White Blood Count (test code = 6690-2) 6.99 4.8-10.8 [facility] HospitalRed Blood Kxmdy5737-34-02 04:39:00* Test Item Value Reference Range Interpretation Comments Red Blood Count (test code = 789-8) 3.98 4.3-5.7 L [facility] HospitalHemoglobin2019-04-01 04:39:00* Test Item Value Reference Range Interpretation Comments Hemoglobin (test code = 58354-3) 9.1 14.0-18.0 L [facility] HospitalHematocrit2019-04-01 04:39:00* Test Item Value Reference Range Interpretation Comments Hematocrit (test code = 4544-3) 31.8 38.2-49.6 L [facility] HospitalMean Corpuscular Ypjrcy4942-38-61 04:39:00* Test Item Value Reference Range Interpretation Comments Mean Corpuscular Volume (test code = 787-2) 79.9 81-99 L [facility] HospitalMean Corpuscular Jbpumaiomg6997-06-33 04:39:00* Test Item Value Reference Range Interpretation Comments Mean Corpuscular Hemoglobin (test code = 785-6) 22.9 28-32 [facility] Hemoglobin Concent 2018-11-05 04:39:00* Test Item Value Reference Range Interpretation Comments Mean Corpuscular Hemoglobin Concent (test code = 786-4) 28.6 31-35 L [facility] HospitalRed Cell Distribution Mbavx5546-82-26 04:39:00* Test Item Value Reference Range Interpretation Comments Red Cell Distribution Width (test code = 31098-6) 19.7 11.7 -14.4 H [facility] HospitalPlatelet Dojkq8091-49-66 04:39:00* Test Item Value Reference Range Interpretation Comments Platelet Count (test code = 777-3) 242 140-360 [facility] HospitalNeutrophils (%) (Auto)2018-11-05 04:39:00 * Test Item Value Reference Range Interpretation Comments Neutrophils (%) (Auto) (test code = 37039-8) 59.6 38.7-80.0 [facility] HospitalLymphocytes (%) (Auto)2018-11-05 04:39:00 * Test Item Value Reference Range Interpretation Comments Lymphocytes (%) (Auto) (test code = 736-9) 23.7 18.0-39.1 [facility] HospitalMonocytes (%) (Auto)2018-11-05 04:39:00* Test Item Value Reference Range Interpretation Comments Monocytes (%) (Auto) (test code = 5905-5) 11.9 4.4-11.3 H [facility] HospitalEosinophils (%) (Auto)2018-11-05 04:39:00 * Test Item Value Reference Range Interpretation Comments Eosinophils (%) (Auto) (test code = 713-8) 4.3 0.0-6.0 [facility] HospitalBasophils (%) (Auto)2018-11-05 04:39:00* Test Item Value Reference Range Interpretation Comments Basophils (%) (Auto) (test code = 706-2) 0.4 0.0-1.0 [facility] HospitalIM GRANULOCYTES %2018-11-05 04:39:00* Test Item Value Reference Range Interpretation Comments IM GRANULOCYTES % (test code = IM GRANULOCYTES %) 0.1 0.0- 1.0 [facility] HospitalNeutrophils # (Auto)2018-11-05 04:39:00* Test Item Value Reference Range Interpretation Comments Neutrophils # (Auto) (test code = 751-8) 4.2 2.1-6.9 [facility] HospitalLymphocytes # (Auto)2018-11-05 04:39:00* Test Item Value Reference Range Interpretation Comments Lymphocytes # (Auto) (test code = 70971-8) 1.7 1.0-3.2 [facility] HospitalMonocytes # (Auto)2018-11-05 04:39:00* Test Item Value Reference Range Interpretation Comments Monocytes # (Auto) (test code = 742-7) 0.8 0.2-0.8 [facility] HospitalEosinophils # (Auto)2018-11-05 04:39:00* Test Item Value Reference Range Interpretation Comments Eosinophils # (Auto) (test code = 711-2) 0.3 0.0-0.4 [facility] HospitalBasophils # (Auto)2018-11-05 04:39:00* Test Item Value Reference Range Interpretation Comments Basophils # (Auto) (test code = 704-7) 0.0 0.0-0.1 [facility] HospitalAbsolute Immature Granulocyte (auto 2018-11-05 04:39:00* Test Item Value Reference Range Interpretation Comments Absolute Immature Granulocyte (auto (hakan t code = Absolute Immature Granulocyte (auto) 0.01 0-0.1 [facility] Rocktool Occult Lnkvt9636-26-43 19:21:00* Test Item Value Reference Range Interpretation Comments Stool Occult Blood (test code = 2335-8) NEGATIVE NEGATIVE [facility] HospitalVitamin B12 Mncsn6016-92-29 06:12:00* Test Item Value Reference Range Interpretation Comments Vitamin B12 Level (test code = 59834-8) 233 213-816 [facility] HospitalFolate2019-03-30 06:12:00* Test Item Value Reference Range Interpretation Comments Folate (test code = 2284-8) 15.6 7.0-15.4 H [facility] HospitalFerritin2019-03-30 05:51:00* Test Item Value Reference Range Interpretation Comments Ferritin (test code = 2276-4) 30.29 21.81-274.66 [facility] HospitalIron Sorey5576-84-51 05:41:00* Test Item Value Reference Range Interpretation Comments Iron Level (test code = 2498-4) 29 65-175 L [facility] HospitalTotal Iron Binding Zewjpyro0669-92-88 05:41:00* Test Item Value Reference Range Interpretation Comments Total Iron Binding Capacity (test code = 2500-7) 470 261-4 78 [facility] HospitalPercent Iron Zpkzsqezks1230-39-34 05:41:00* Test Item Value Reference Range Interpretation Comments Percent Iron Saturation (test code = 2502-3) 6 15-50 L [facility] HospitalTransferrin2019-03-30 05:41:00* Test Item Value Reference Range Interpretation Comments Transferrin (test code = 3034-6) 336 174-364 [facility] Vleqmjktl1536-92-27 05:41:00* Test Item Value Reference Range Interpretation Comments Total Bilirubin (test code = 1975-2) 0.8 0.2-1.2 [facility] HospitalDirect Nzovzdaoo0084-00-14 05:41:00* Test Item Value Reference Range Interpretation Comments Direct Bilirubin (test code = 78049-5) 0.3 0.0-0.5 [facility] HospitalAspartate Amino Transf (AST/SGOT) 2018-11-03 05:41:00* Test Item Value Reference Range Interpretation Comments Aspartate Amino Transf (AST/SGOT) (test code = Aspartate Amino Transf (AST/SGOT)) 17 5-34 [facility] HospitalAlanine Aminotransferase (ALT/SGPT) 2018-11-03 05:41:00* Test Item Value Reference Range Interpretation Comments Alanine Aminotransferase (ALT/SGPT) (test code = 1742-6) 11 0-55 [facility] HospitalTotal Ccbcrym7305-16-36 05:41:00* Test Item Value Reference Range Interpretation Comments Total Protein (test code = 2885-2) 7.1 6.5-8.1 [facility] HospitalAlbumin2019-03-30 05:41:00* Test Item Value Reference Range Interpretation Comments Albumin (test code = 1751-7) 3.5 3.5-5.0 [facility] HospitalAlkaline Iuqqxnwtuck6007-65-78 05:41:00* Test Item Value Reference Range Interpretation Comments Alkaline Phosphatase (test code = 6768-6) 52 40-150 [facility] HospitalUS ABDOMEN QWINBFI9619-56-18 17:00:00 [facility] [address] [place] [address] Patient Name: SHIVANI ORDONEZ MR #: [id number] : 10/12/1946 Age/Sex: 72/M Req #: [id number] Adm Physician: JANE RIVAS MD Ordered by: Anum Hicks HEAD COOK Report #: [id number] Location: [facility] Room/Bed: [place] [address] Procedure: 08 US/US ABDOMEN LIMITED Exam Date: 11/02/18 Exam Ti me: 1041 REPORT STATUS: Signed L imited abdominal ultrasound History: Rule out ascites. Comparison: Non e. Technique/findings: Limited ultrasound was performed of the abdomen i n all four quadrants to evaluate for ascites. No ascites was identified. IMPRESSION: No sonographic evidence of ascites. Signed by: Dr. John villarreal MD on 11/02/2018 5:02 PM Dictated By: JOHN BYERS MD Electronically Sig umesh By: JOHN BYERS MD on 11/02/181701 Transcribed By: ERIN on 11/02/181701 COPY TO: ANUM HICKS NP Free Bmivylqwn8625-00-95 04:24:00* Test Item Value Reference Range Interpretation Comments Free Thyroxine (test code = 3024-7) 0.95 0.9-1.8 [facility] HospitalThyroid Stimulating Hormone (TSH) 2018-11-02 04:24:00* Test Item Value Reference Range Interpretation Comments Thyroid Stimulating Hormone (TSH) (test code = 72416-8) 1.953 0.350-4.940 [facility] HospitalTriglycerides Teuim3826-87-08 04:01:00* Test Item Value Reference Range Interpretation Comments Triglycerides Level (test code = 2571-8) 197 0-149 H [facility] HospitalCholesterol Lbvvu1234-85-38 04:01:00* Test Item Value Reference Range Interpretation Comments Cholesterol Level (test code = 2093-3) 155 0-199 Less than 200 mg/dL Low Tmuk849 - 239 mg/dL Borderline Qumf496 m g/dl and greater High Risk [facility] HospitalLDL Jgyftaokted7392-34-33 04:01:00* Test Item Value Reference Range Interpretation Comments LDL Cholesterol (test code = 2089-1) 93 60-130 [facility] HospitalHDL Lfzdqshfvbm2054-61-24 04:01:00* Test Item Value Reference Range Interpretation Comments HDL Cholesterol (test code = 2085-9) 23 40-60 L [facility] HospitalCholesterol/HDL Yfybp5170-07-04 04:01:00 * Test Item Value Reference Range Interpretation Comments Cholesterol/HDL Ratio (test code = 9830-1) 6.7 3.9-4.7 H [facility] HospitalHemoglobin A1c Lujnuan6606-90-60 03:11:00 * Test Item Value Reference Range Interpretation Comments Hemoglobin A1c Percent (test code = Hemoglobin A1c Percent) 6.6 4.0-7.0 [facility] HospitalCreatine Kinase IU0910-25-59 03:11:00* Test Item Value Reference Range Interpretation Comments Creatine Kinase MB (test code = 19981-9) 0.60 0-5.0 [facility] HospitalTroponin G1347-15-53 03:11:00* Test Item Value Reference Range Interpretation Comments Troponin I (test code = XDO5956) 0.010 0-0.300 [facility] HospitalCreatine Wynjlk1130-65-54 02:35:00* Test Item Value Reference Range Interpretation Comments Creatine Kinase (test code = 2157-6) 42 30-200 [facility]ING[facility])2018-11-01 12:25:00 [facility] [address] [address] Patient Name: SHIVANI STEWART MR #: [id number] : 10/12/1946 Age/Sex: 72/M Req #: [id number] Adm Physician: Ordered by: TARIK DESAI MD Report #: [id number] Location: ER Room/Bed: Procedure: 032 29 DX/CHEST SINGLE (PORTABLE) Exam Date: 11/01/18 Ex am Time: 1050 REPORT STATUS: Signed EXAMINATION: CHEST SINGLE (PORTABLE) INDICATION: Swollen legs ERMD ORDER [id number] 1050 Y COMPARISON: 06/23/2018 FINDINGS: TUBES and LINES: None. LUNGS: Lungs are well inflated. Lungs are clear. There is no evidence of pneumonia or pulmonary edema. PLE URA: No pleural effusion or pneumothorax. HEART AND MEDIASTINUM: Cardiome tanisha BONES AND SOFT TISSUES: No acute osseous lesion. Soft tissues ar e unremarkable. UPPER ABDOMEN: No free air under the diaphragm. IMPRESSION: Cardiomegaly Signed by: Dr. Jaclyn Waters M.D. on 9 12:25 PM Dictated By: JACLYN WATERS MD, MD 1225 Transcribed By: ERIN on 11/01/18 1225 COPY TO: TARIK DESAI MD Bohwyacu8986-97-28 10:20:00* Test Item Value Reference Range Interpretation Comments Globulin (test code = 09310-2) 3.8 2.3-3.5 H [facility] HospitalAlbumin/Globulin Lcejm3530-15-83 10:20:00 * Test Item Value Reference Range Interpretation Comments Albumin/Globulin Ratio (test code = 1759-0) 1.1 0.8-2.0 [facility] HospitalArterial Blood sM2951-00-34 09:55:00* Test Item Value Reference Range Interpretation Comments Arterial Blood pH (test code = 2744-1) 7.48 7.31-7.41 H [facility] HospitalArterial Blood Partial Pressure CO2 2018-11-01 09:55:00* Test Item Value Reference Range Interpretation Comments Arterial Blood Partial Pressure CO2 (test code = 2018-) 46 41-51 [facility] HospitalArterial Blood Partial Pressure O2 2018-11-01 09:55:00* Test Item Value Reference Range Interpretation Comments Arterial Blood Partial Pressure O2 (test code = 2019-03) 72 80-105 L [facility] HospitalArterial Blood UPN08124-39-45 09:55:00* Test Item Value Reference Range Interpretation Comments Arterial Blood HCO3 (test code = 1960-4) 34 23-28 H [facility] HospitalArterial Blood Base Qpdnvz9157-54-08 09:55:00* Test Item Value Reference Range Interpretation Comments Arterial Blood Base Excess (test code = 1925-7) 10.0 -2-3 H [facility] HospitalArterial Blood Oxygen Saturation 2018-11-01 09:55:00* Test Item Value Reference Range Interpretation Comments Arterial Blood Oxygen Saturation (test code = 2708-6) 95.0 95-98 [facility] HospitalFiO22019-03-28 09:55:00* Test Item Value Reference Range Interpretation Comments FiO2 (test code = FiO2) 21 PT ON ROOM AIRAspire Behavioral Health HospitalCreatine Kinase MB 2018-06-23 17:16:00* Test Item Value Reference Range Interpretation Comments Creatine Kinase MB (test code = 44235-4) 0.80 0-5.0 [facility] HospitalTroponin G8063-46-34 17:16:00* Test Item Value Reference Range Interpretation Comments Troponin I (test code = HDJ0051) 0.015 0-0.300 [facility] Rockodium Krxkg3139-76-86 16:51:00* Test Item Value Reference Range Interpretation Comments Sodium Level (test code = 2951-2) 139 136-145 [facility] HospitalPotassium Elcxt0176-27-51 16:51:00* Test Item Value Reference Range Interpretation Comments Potassium Level (test code = 2823-3) 3.2 3.5-5.1 L [facility] HospitalChloride Pfaau5641-79-14 16:51:00* Test Item Value Reference Range Interpretation Comments Chloride Level (test code = 2075-0) 97 98-107 L [facility] HospitalCarbon Dioxide Jiqct6848-35-75 16:51:00* Test Item Value Reference Range Interpretation Comments Carbon Dioxide Level (test code = 2028-9) 27 22-29 [facility] HospitalAnion Ouo9744-03-92 16:51:00* Test Item Value Reference Range Interpretation Comments Anion Gap (test code = 09754-2) 18.2 8-16 H [facility] HospitalBlood Urea Nfhinbcj2403-41-05 16:51:00* Test Item Value Reference Range Interpretation Comments Blood Urea Nitrogen (test code = 3094-0) 41 7-26 H [facility] HospitalCreatinine2018-11-17 16:51:00* Test Item Value Reference Range Interpretation Comments Creatinine (test code = 2160-0) 1.32 0.72-1.25 H [facility] HospitalBUN/Creatinine Gckpd6760-50-19 16:51:00* Test Item Value Reference Range Interpretation Comments BUN/Creatinine Ratio (test code = 3097-3) 31 6-25 H [facility] HospitalEstimat Glomerular Filtration Rate 2018-06-23 16:51:00* Test Item Value Reference Range Interpretation Comments Estimat Glomerular Filtration Rate (test code = 274786446) 54 >60 L Ranges were taken from the National Kidney Disease Education Program and the [place] [facility] literature.Reference ranges:60 or greater: Hsbqun31-71 ( for 3 consecutive months): Chronic kidney disease 15 or less: Kidney failureAspire Behavioral Health HospitalGlucose Axucu6625-16-48 16:51:00* Test Item Value Reference Range Interpretation Comments Glucose Level (test code = NUU9132) 158 74-118 H [facility] HospitalCalcium Agpko4610-18-80 16:51:00* Test Item Value Reference Range Interpretation Comments Calcium Level (test code = 63874-7) 9.2 8.4-10.2 [facility] HospitalMagnesium Ithbh9006-86-71 16:51:00* Test Item Value Reference Range Interpretation Comments Magnesium Level (test code = 80639-1) 1.9 1.3-2.1 [facility] HospitalCreatine Yfhppm7794-53-25 16:51:00* Test Item Value Reference Range Interpretation Comments Creatine Kinase (test code = 2157-6) 55 30-200 [facility] HospitalAmylase Gyrrj6094-06-46 16:51:00* Test Item Value Reference Range Interpretation Comments Amylase Level (test code = 1798-8) 63 25-125 [facility] HospitalLipase2018-11-17 16:51:00* Test Item Value Reference Range Interpretation Comments Lipase (test code = 3040-3) 28 78 [facility] HospitalAmylase Oongx1729-64-41 16:51:00* Test Item Value Reference Range Interpretation Comments Amylase Level (test code = 1798-8) 63 25-125 [facility] HospitalLipase2018-11-17 16:51:00* Test Item Value Reference Range Interpretation Comments Lipase (test code = 3040-3) 28 78 [facility] HospitalProthrombin Xfyl4648-34-05 16:45:00* Test Item Value Reference Range Interpretation Comments Prothrombin Time (test code = 5902-2) 18.6 11.9-14.5 H [facility] HospitalProthromb Time International Ratio 2018-06-23 16:45:00* Test Item Value Reference Range Interpretation Comments Prothromb Time International Ratio (test code = 6301-6) 1.43 Oral Anticoagulant Therapy INR Values:1. Low Intensity Therapy 1.5 - 2.02 . Moderate Intensity Therapy 2.0 - 3.03. High Intensity Therapy(1) 2.5 - 3. 54. High Intensity Therapy(2) 3.0 - 4.05. Panic Value INR > 5.0 [facility] HospitalActivated Partial Thromboplast Time 2018-06-23 16:45:00* Test Item Value Reference Range Interpretation Comments Activated Partial Thromboplast Time (test code = 25890-8) 42.2 23.8-35.5 H [facility] HospitalProthrombin Jqzx5006-05-36 16:45:00* Test Item Value Reference Range Interpretation Comments Prothrombin Time (test code = 5902-2) 18.6 11.9-14.5 H [facility] HospitalProthromb Time International Ratio 2018-06-23 16:45:00* Test Item Value Reference Range Interpretation Comments Prothromb Time International Ratio (test code = 6301-6) 1.43 Oral Anticoagulant Therapy INR Values:1. Low Intensity Therapy 1.5 - 2.02 . Moderate Intensity Therapy 2.0 - 3.03. High Intensity Therapy(1) 2.5 - 3. 54. High Intensity Therapy(2) 3.0 - 4.05. Panic Value INR > 5.0 [facility] HospitalActivated Partial Thromboplast Time 2018-06-23 16:45:00* Test Item Value Reference Range Interpretation Comments Activated Partial Thromboplast Time (test code = 95752-6) 42.2 23.8-35.5 H [facility] HospitalWhite Blood Zqrdm5760-54-91 16:41:00* Test Item Value Reference Range Interpretation Comments White Blood Count (test code = 6690-2) 12.19 4.8-10.8 H [facility] HospitalRed Blood Mirpu0830-63-58 16:41:00* Test Item Value Reference Range Interpretation Comments Red Blood Count (test code = 789-8) 4.22 4.3-5.7 L [facility] HospitalHemoglobin2018-11-17 16:41:00* Test Item Value Reference Range Interpretation Comments Hemoglobin (test code = 56129-9) 11.0 14.0-18.0 L [facility] HospitalHematocrit2018-11-17 16:41:00* Test Item Value Reference Range Interpretation Comments Hematocrit (test code = 4544-3) 35.1 38.2-49.6 L [facility] HospitalMean Corpuscular Xxrxfq0912-89-52 16:41:00* Test Item Value Reference Range Interpretation Comments Mean Corpuscular Volume (test code = 787-2) 83.2 81-99 [facility] HospitalMean Corpuscular Njbfnjywwa6792-02-31 16:41:00* Test Item Value Reference Range Interpretation Comments Mean Corpuscular Hemoglobin (test code = 785-6) 26.1 28-32 L [facility] HospitalMean Corpuscular Hemoglobin Concent 2018-06-23 16:41:00* Test Item Value Reference Range Interpretation Comments Mean Corpuscular Hemoglobin Concent (test code = 786-4) 31.3 31-35 [facility] HospitalRed Cell Distribution Zwyfn7276-88-52 16:41:00* Test Item Value Reference Range Interpretation Comments Red Cell Distribution Width (test code = 98132-6) 17.1 11.7 -14.4 H [facility] HospitalPlatelet Bwioe5018-41-76 16:41:00* Test Item Value Reference Range Interpretation Comments Platelet Count (test code = 777-3) 213 140-360 [facility] HospitalNeutrophils (%) (Auto)2018-06-23 16:41:00 * Test Item Value Reference Range Interpretation Comments Neutrophils (%) (Auto) (test code = 14480-9) 74.1 38.7-80.0 [facility] HospitalLymphocytes (%) (Auto)2018-06-23 16:41:00 * Test Item Value Reference Range Interpretation Comments Lymphocytes (%) (Auto) (test code = 736-9) 12.8 18.0-39.1 L [facility] HospitalMonocytes (%) (Auto)2018-06-23 16:41:00* Test Item Value Reference Range Interpretation Comments Monocytes (%) (Auto) (test code = 5905-5) 10.8 4.4-11.3 [facility] HospitalEosinophils (%) (Auto)2018-06-23 16:41:00 * Test Item Value Reference Range Interpretation Comments Eosinophils (%) (Auto) (test code = 713-8) 1.5 0.0-6.0 [facility] HospitalBasophils (%) (Auto)2018-06-23 16:41:00* Test Item Value Reference Range Interpretation Comments Basophils (%) (Auto) (test code = 706-2) 0.3 0.0-1.0 [facility] HospitalIM GRANULOCYTES %2018-06-23 16:41:00* Test Item Value Reference Range Interpretation Comments IM GRANULOCYTES % (test code = IM GRANULOCYTES %) 0.5 0.0- 1.0 [facility] HospitalNeutrophils # (Auto)2018-06-23 16:41:00* Test Item Value Reference Range Interpretation Comments Neutrophils # (Auto) (test code = 751-8) 9.0 2.1-6.9 H [facility] HospitalLymphocytes # (Auto)2018-06-23 16:41:00* Test Item Value Reference Range Interpretation Comments Lymphocytes # (Auto) (test code = 37495-6) 1.6 1.0-3.2 [facility] HospitalMonocytes # (Auto)2018-06-23 16:41:00* Test Item Value Reference Range Interpretation Comments Monocytes # (Auto) (test code = 742-7) 1.3 0.2-0.8 H [facility] HospitalEosinophils # (Auto)2018-06-23 16:41:00* Test Item Value Reference Range Interpretation Comments Eosinophils # (Auto) (test code = 711-2) 0.2 0.0-0.4 [facility] HospitalBasophils # (Auto)2018-06-23 16:41:00* Test Item Value Reference Range Interpretation Comments Basophils # (Auto) (test code = 704-7) 0.0 0.0-0.1 [facility]lineAbsolute Immature Granulocyte (auto 2018-06-23 16:41:00* Test Item Value Reference Range Interpretation Comments Absolute Immature Granulocyte (auto (hakan t code = Absolute Immature Granulocyte (auto) 0.06 0-0.1 [facility] HospitalCHEST SINGLE (PORTABLE)2018-06-23 16:30:00 [facility] [address] [address] Patient Name: SHIVANI STEWART MR #: [id number] : 10/12/1946 Age/Sex: 71/M Req #: [id number] Adm Physician: Ordered by: LUIS THOMAS NP Report #: [id number] Location: ER Room/Bed: Procedure: 1117-0 017 DX/CHEST SINGLE (PORTABLE) Exam Date: 06/23/18 E xam Time: 1620 REPORT STATUS: Olga d Examination: Single AP view of the chest. COMPARISON: None. INDIC ATION: Chest pain DISCUSSION: Lines/tubes: None. Lungs: Th e lungs are well inflated and clear. No pneumonia or pulmonary edema. Pleur a: No pleural effusion or pneumothorax. Heart and mediastinum: Heart enla rged. Bones and soft tissues: No acute bony abnormalities. IMPRE SSION: 1. No acute cardiopulmonary abnormalities. Signed by: Dr. Tonia Patel M.D. on 06/23/2018 4:30 PM Dictated By: COLEEN PATEL MD 1630 Transcribed By: ERIN on 06/23/18 1630 COPY TO: THOMAS,LUIS L HEAD COOK Bedside Teqymds8138-97-55 09:59:00* Test Item Value Reference Range Interpretation Comments Bedside Glucose (test code = 82302-8) 184 70-120 H Meter ID: [id number] [facility] ShorelineBedside Glucose 2017-11-03 20:12:00* Test Item Value Reference Range Interpretation Comments Bedside Glucose (test code = 77479-9) 247 70-120 H Meter ID: [id number] [facility] TomballThyroid Stimulating Hormone (TSH)2017-11-03 07:48:00* Test Item Value Reference Range Interpretation Comments Thyroid Stimulating Hormone (TSH) (test code = 25354-7) 1.553 0.350-4.940 [facility] HospitalThyroid Stimulating Hormone (TSH) 2017-11-03 07:48:00* Test Item Value Reference Range Interpretation Comments Thyroid Stimulating Hormone (TSH) (test code = 18220-2) 1.553 0.350-4.940 [facility] Rockodium Dmnze1399-69-12 07:30:00* Test Item Value Reference Range Interpretation Comments Sodium Level (test code = 2951-2) 136 136-145 [facility] HospitalPotassium Izpux6127-47-11 07:30:00* Test Item Value Reference Range Interpretation Comments Potassium Level (test code = 2823-3) 3.9 3.5-5.1 [facility] HospitalChloride Catay3993-16-11 07:30:00* Test Item Value Reference Range Interpretation Comments Chloride Level (test code = 2075-0) 101 98-107 [facility] HospitalCarbon Dioxide Tfylm3276-94-22 07:30:00* Test Item Value Reference Range Interpretation Comments Carbon Dioxide Level (test code = 2028-9) 27 22-29 [facility] HospitalAnion Ahi4007-40-52 07:30:00* Test Item Value Reference Range Interpretation Comments Anion Gap (test code = 02705-6) 11.9 8-16 [facility] HospitalBlood Urea Perpviai7528-91-74 07:30:00* Test Item Value Reference Range Interpretation Comments Blood Urea Nitrogen (test code = 3094-0) 39 7-26 H [facility] HospitalCreatinine2018-03-30 07:30:00* Test Item Value Reference Range Interpretation Comments Creatinine (test code = 2160-0) 1.28 0.72-1.25 H [facility] HospitalBUN/Creatinine Xxvoh3998-27-12 07:30:00* Test Item Value Reference Range Interpretation Comments BUN/Creatinine Ratio (test code = 3097-3) 30 6-25 H [facility] HospitalEstimat Glomerular Filtration Rate 2017-11-03 07:30:00* Test Item Value Reference Range Interpretation Comments Estimat Glomerular Filtration Rate (test code = 98705-0) 56 >60 L Ranges were taken from the National Kidney Disease Education Program and the [place] [facility] literature.Reference ranges:60 or greater: Nwenoe96-31 ( for 3 consecutive months): Chronic kidney disease 15 or less: Kidney failureCH[facility] – ShorelineGlucose Xfjwu0715-30-03 07:30:00* Test Item Value Reference Range Interpretation Comments Glucose Level (test code = PPX1289) 233 74-118 H [facility] HospitalCalcium Nsdqi7450-63-42 07:30:00* Test Item Value Reference Range Interpretation Comments Calcium Level (test code = 21773-4) 9.5 8.4-10.2 [facility] HospitalTotal Yblbhcvqa6644-76-94 07:30:00* Test Item Value Reference Range Interpretation Comments Total Bilirubin (test code = 1975-2) 0.3 0.2-1.2 [facility] HospitalAspartate Amino Transf (AST/SGOT) 2017-11-03 07:30:00* Test Item Value Reference Range Interpretation Comments Aspartate Amino Transf (AST/SGOT) (test code = Aspartate Amino Transf (AST/SGOT)) 14 5-34 [facility] HospitalAlanine Aminotransferase (ALT/SGPT) 2017-11-03 07:30:00* Test Item Value Reference Range Interpretation Comments Alanine Aminotransferase (ALT/SGPT) (test code = 1742-6) 17 0-55 [facility] HospitalTotal Reseczy4939-41-65 07:30:00* Test Item Value Reference Range Interpretation Comments Total Protein (test code = 2885-2) 7.0 6.5-8.1 [facility] HospitalAlbumin2018-03-30 07:30:00* Test Item Value Reference Range Interpretation Comments Albumin (test code = 1751-7) 3.4 3.5-5.0 L [facility] HospitalGlobulin2018-03-30 07:30:00* Test Item Value Reference Range Interpretation Comments Globulin (test code = 82349-2) 3.6 2.3-3.5 H [facility] HospitalAlbumin/Globulin Uulyv6295-71-14 07:30:00 * Test Item Value Reference Range Interpretation Comments Albumin/Globulin Ratio (test code = 1759-0) 0.9 0.8-2.0 [facility] HospitalAlkaline Wlmmobhkkyw2693-94-43 07:30:00* Test Item Value Reference Range Interpretation Comments Alkaline Phosphatase (test code = 6768-6) 44 40-150 [facility] HospitalTriglycerides Utzpo8025-87-53 07:30:00* Test Item Value Reference Range Interpretation Comments Triglycerides Level (test code = 2571-8) 375 0-149 H [facility] HospitalCholesterol Tkkrj8952-59-18 07:30:00* Test Item Value Reference Range Interpretation Comments Cholesterol Level (test code = 2093-3) 126 0-199 Less than 200 mg/dL Low Wogm553 - 239 mg/dL Borderline Csmy376 m g/dl and greater High Risk [facility] HospitalLDL Bpsmpqvbhlt7617-04-82 07:30:00* Test Item Value Reference Range Interpretation Comments LDL Cholesterol (test code = 2089-1) 31 60-130 L [facility] HospitalHDL Sqernzsckaj2106-63-90 07:30:00* Test Item Value Reference Range Interpretation Comments HDL Cholesterol (test code = 2085-9) 20 40-60 L [facility] HospitalCholesterol/HDL Iwfxi6522-85-98 07:30:00 * Test Item Value Reference Range Interpretation Comments Cholesterol/HDL Ratio (test code = 9830-1) 6.3 3.9-4.7 H [facility] HospitalCreatine Kinase QH2461-72-37 07:30:00* Test Item Value Reference Range Interpretation Comments Creatine Kinase MB (test code = 86660-3) 2.20 0-5.0 [facility] HospitalTroponin R1655-47-60 07:30:00* Test Item Value Reference Range Interpretation Comments Troponin I (test code = EOP6933) -0.001 0-0.300 [facility] HospitalTotal Fvstnxlkx6440-28-10 07:30:00* Test Item Value Reference Range Interpretation Comments Total Bilirubin (test code = 1975-2) 0.3 0.2-1.2 [facility] HospitalAspartate Amino Transf (AST/SGOT) 2017-11-03 07:30:00* Test Item Value Reference Range Interpretation Comments Aspartate Amino Transf (AST/SGOT) (test code = Aspartate Amino Transf (AST/SGOT)) 14 5-34 [facility] HospitalAlanine Aminotransferase (ALT/SGPT) 2017-11-03 07:30:00* Test Item Value Reference Range Interpretation Comments Alanine Aminotransferase (ALT/SGPT) (test code = 1742-6) 17 0-55 [facility] Weznsen4491-51-21 07:30:00* Test Item Value Reference Range Interpretation Comments Total Protein (test code = 2885-2) 7.0 6.5-8.1 [facility] HospitalAlbumin2018-03-30 07:30:00* Test Item Value Reference Range Interpretation Comments Albumin (test code = 1751-7) 3.4 3.5-5.0 L [facility] HospitalGlobulin2018-03-30 07:30:00* Test Item Value Reference Range Interpretation Comments Globulin (test code = 54695-7) 3.6 2.3-3.5 H [facility] HospitalAlbumin/Globulin Huidl0578-22-36 07:30:00 * Test Item Value Reference Range Interpretation Comments Albumin/Globulin Ratio (test code = 1759-0) 0.9 0.8-2.0 [facility] HospitalAlkaline Roqggoldofh3838-17-32 07:30:00* Test Item Value Reference Range Interpretation Comments Alkaline Phosphatase (test code = 6768-6) 44 40-150 [facility] HospitalTriglycerides Hgdrl4679-84-57 07:30:00* Test Item Value Reference Range Interpretation Comments Triglycerides Level (test code = 2571-8) 375 0-149 H [facility] HospitalCholesterol Geznl9194-79-37 07:30:00* Test Item Value Reference Range Interpretation Comments Cholesterol Level (test code = 2093-3) 126 0-199 Less than 200 mg/dL Low Neoo664 - 239 mg/dL Borderline Zhxk394 m g/dl and greater High Risk [facility] HospitalLDL Wxniopehdnq2982-81-37 07:30:00* Test Item Value Reference Range Interpretation Comments LDL Cholesterol (test code = 2089-1) 31 60-130 L [facility] HospitalHDL Brmenygveeh7590-11-69 07:30:00* Test Item Value Reference Range Interpretation Comments HDL Cholesterol (test code = 2085-9) 20 40-60 L [facility] HospitalCholesterol/HDL Qzrwq1144-39-78 07:30:00 * Test Item Value Reference Range Interpretation Comments Cholesterol/HDL Ratio (test code = 9830-1) 6.3 3.9-4.7 H [facility] HospitalCreatine Budfuo3149-89-10 07:17:00* Test Item Value Reference Range Interpretation Comments Creatine Kinase (test code = 2157-6) 219 30-200 H [facility] HospitalWhite Blood Xsuve0808-87-56 07:00:00* Test Item Value Reference Range Interpretation Comments White Blood Count (test code = 6690-2) 10.21 4.8-10.8 [facility] HospitalRed Blood Jwzmd6888-95-89 07:00:00* Test Item Value Reference Range Interpretation Comments Red Blood Count (test code = 789-8) 3.90 4.3-5.7 L [facility] HospitalHemoglobin2018-03-30 07:00:00* Test Item Value Reference Range Interpretation Comments Hemoglobin (test code = 81144-5) 11.2 14.0-18.0 L [facility] HospitalHematocrit2018-03-30 07:00:00* Test Item Value Reference Range Interpretation Comments Hematocrit (test code = 4544-3) 34.0 38.2-49.6 L [facility] HospitalMean Corpuscular Xahwsk0644-06-19 07:00:00* Test Item Value Reference Range Interpretation Comments Mean Corpuscular Volume (test code = 787-2) 87.2 81-99 [facility] HospitalMean Corpuscular Hsdlxmqkts9524-33-30 07:00:00* Test Item Value Reference Range Interpretation Comments Mean Corpuscular Hemoglobin (test code = 785-6) 28.7 28-32 [facility] Hemoglobin Concent 2017-11-03 07:00:00* Test Item Value Reference Range Interpretation Comments Mean Corpuscular Hemoglobin Concent (test code = 786-4) 32.9 31-35 [facility] HospitalRed Cell Distribution Jtzlw7982-16-04 07:00:00* Test Item Value Reference Range Interpretation Comments Red Cell Distribution Width (test code = 67915-8) 14.1 11.7 -14.4 [facility] HospitalPlatelet Ulzak2209-59-00 07:00:00* Test Item Value Reference Range Interpretation Comments Platelet Count (test code = 777-3) 250 140-360 [facility] HospitalNeutrophils (%) (Auto)2017-11-03 07:00:00 * Test Item Value Reference Range Interpretation Comments Neutrophils (%) (Auto) (test code = 87269-2) 62.7 38.7-80.0 [facility] HospitalLymphocytes (%) (Auto)2017-11-03 07:00:00 * Test Item Value Reference Range Interpretation Comments Lymphocytes (%) (Auto) (test code = 736-9) 22.4 18.0-39.1 [facility] HospitalMonocytes (%) (Auto)2017-11-03 07:00:00* Test Item Value Reference Range Interpretation Comments Monocytes (%) (Auto) (test code = 5905-5) 10.9 4.4-11.3 [facility] HospitalEosinophils (%) (Auto)2017-11-03 07:00:00 * Test Item Value Reference Range Interpretation Comments Eosinophils (%) (Auto) (test code = 713-8) 3.1 0.0-6.0 [facility] HospitalBasophils (%) (Auto)2017-11-03 07:00:00* Test Item Value Reference Range Interpretation Comments Basophils (%) (Auto) (test code = 706-2) 0.4 0.0-1.0 [facility] HospitalIM GRANULOCYTES %2017-11-03 07:00:00* Test Item Value Reference Range Interpretation Comments IM GRANULOCYTES % (test code = IM GRANULOCYTES %) 0.5 0.0- 1.0 [facility] HospitalNeutrophils # (Auto)2017-11-03 07:00:00* Test Item Value Reference Range Interpretation Comments Neutrophils # (Auto) (test code = 751-8) 6.4 2.1-6.9 [facility] HospitalLymphocytes # (Auto)2017-11-03 07:00:00* Test Item Value Reference Range Interpretation Comments Lymphocytes # (Auto) (test code = 98067-1) 2.3 1.0-3.2 [facility] HospitalMonocytes # (Auto)2017-11-03 07:00:00* Test Item Value Reference Range Interpretation Comments Monocytes # (Auto) (test code = 742-7) 1.1 0.2-0.8 H [facility] HospitalEosinophils # (Auto)2017-11-03 07:00:00* Test Item Value Reference Range Interpretation Comments Eosinophils # (Auto) (test code = 711-2) 0.3 0.0-0.4 [facility] HospitalBasophils # (Auto)2017-11-03 07:00:00* Test Item Value Reference Range Interpretation Comments Basophils # (Auto) (test code = 704-7) 0.0 0.0-0.1 [facility] HospitalAbsolute Immature Granulocyte (auto 2017-11-03 07:00:00* Test Item Value Reference Range Interpretation Comments Absolute Immature Granulocyte (auto (hakan t code = Absolute Immature Granulocyte (auto) 0.05 0-0.1 [facility] HospitalLactic Acid Bezov7669-68-74 19:00:00* Test Item Value Reference Range Interpretation Comments Lactic Acid Level (test code = Lactic Acid Level) 15.2 4.5- 19.8 [facility] HospitalLactic Acid Pmwwx4963-75-50 19:00:00* Test Item Value Reference Range Interpretation Comments Lactic Acid Level (test code = Lactic Acid Level) 15.2 4.5- 19.8 [facility] HospitalDigoxin Auiqx1431-44-96 15:40:00* Test Item Value Reference Range Interpretation Comments Digoxin Level (test code = 59153-4) 0.91 0.8-2.0 [facility] Zfocq1864-62-95 15:40:00* Test Item Value Reference Range Interpretation Comments Digoxin Level (test code = 42429-2) 0.91 0.8-2.0 [facility] HospitalB-Type Natriuretic Gpotpfh4700-68-91 11:50:00* Test Item Value Reference Range Interpretation Comments B-Type Natriuretic Peptide (test code = 13534-0) 57.4 0-100 [facility] HospitalB-Type Natriuretic Brfjgtz4768-79-09 11:50:00* Test Item Value Reference Range Interpretation Comments B-Type Natriuretic Peptide (test code = 98128-8) 57.4 0-100 [facility] HospitalMagnesium Aecou8794-06-19 11:41:00* Test Item Value Reference Range Interpretation Comments Magnesium Level (test code = 06818-3) 1.3 1.3-2.1 [facility] HospitalProthrombin Tkql4663-74-16 11:31:00* Test Item Value Reference Range Interpretation Comments Prothrombin Time (test code = 5902-2) 14.7 11.9-14.5 H [facility] HospitalProthromb Time International Ratio 2017-11-02 11:31:00* Test Item Value Reference Range Interpretation Comments Prothromb Time International Ratio (test code = 6301-6) 1.24 Oral Anticoagulant Therapy INR Values:1. Low Intensity Therapy 1.5 - 2.02 . Moderate Intensity Therapy 2.0 - 3.03. High Intensity Therapy(1) 2.5 - 3. 54. High Intensity Therapy(2) 3.0 - 4.05. Panic Value INR > 5.0 [facility] HospitalActivated Partial Thromboplast Time 2017-11-02 11:31:00* Test Item Value Reference Range Interpretation Comments Activated Partial Thromboplast Time (test code = 29582-3) 25.9 23.8-35.5 [facility] HospitalCHES SINGLE (PORTABLE) [facility] [address] [address] Patient Name: SHIVANI STEWART MR #: [id number] : 1945 Age/Sex: 72/M Req #: [id number] Adm Physician: Ordered by: JERI DAS HEAD COOK Report #: [id number] Location: ER om/Bed: Procedure: [id number] DX/CHEST SINGLE (PORTABL E) Exam Date: 11/02/17 Exam Time: 1130 REPORT STATUS: Signed PROCEDURE: CHEST SINGLE (PORTABLE) COMPARISON: Patients [facility], DX, CHEST 2 VIEWS, 10/27/2017, 10:33. INDICATIONS: LOW BLOOD PRE SSURE FINDINGS: LUNGS: No consolidations or edema. PLEURA : No effusions or pneumothorax. HEART T MEDIASTINUM: The heart is wit hin normal size-limits. BONES T SOFT TISSUES: No acute findings. CONCLUSION: No acute thoracic abnormality. Boo Daugherty am, D.O. Dictated by: Boo Ozuna D.O. on 11/02/2017 at 12:23 Elec tronically approved by: Boo Ozuna D.O. on 11/02/2017 at 12:29 Dictated By: BOO OZUNA DO 1229 Transcribed By: NAOMI on 11/02/179 COPY TO: Nancy DAS HEAD COOK US RENAL RETROPERITONEAL COMP [place] [address] Patient Name: SHIVANI STEWART MR #: [id number] : 1945 Age/Sex: 72/M Req #: [id number] Adm Physician: HOLLY RODAS MD Ordered by: HOLLY RODAS MD Report #: [id number] Location: [place] [address] Room/Bed: [facility] Procedure: [id number] US/US RENAL RETROPERITONEAL COMP Exam Date: 11/02/17 Exam Time: 1801 REPORT STATUS: Signed PROCEDURE: US RETROPERITONEAL ( KIDNEY ). COMPARISON: None. INDICATIONS: CKD TECHNIQUE: Wharton-scale and color sonographic images of the bilateral kidneys and bladder where obta ined in transverse and longitudinal planes. FINDINGS: RIGHT KI DNEY: 10.7 x 5.0 x 5.1 cm, cortex 1.6 cm Cysts: None Solid masses: None St ones: None Hydronephrosis: None Echogenicity: Normal. LEFT KIDNEY: 12. 2 x 5.6 x 4.7 cm, cortex 2.0 cm Cysts: None Solid masses: None Stones: Non e Hydronephrosis: None Echogenicity: Normal. Bladder: Normal. Pr ostate: 2.2 x 2.6 x 3.4 cm CONCLUSION: Normal kidneys. Dictate d by: Amrik Cantrell M.D. on 11/02/2017 at 18:34 Electronically approved by: Elina Cantrell M.D. on 11/02/2017 at 18:34 Dictated By: AMRIK CANTRELL MD Elect ronically Signed By: AMRIK CANTRELL MD on 11/02/171833 Transcribed By: NAOMI on 11/02 COPY TO: HOLLY RODAS MD CHEST 2 VIEWS [place] [address] Patient Name: SHIVANI STEWART MR #: [id number] : 1945 Age/Sex: 72/M Req #: [id number] Adm Physician: Ordered by: WHITNEY BURKETT MD Report #: [id number] Location: OR Room/Bed: Procedure: [id number] DX/CHEST 2 VIEWS Exam Date: 10/27/17 Exam [...] lung base. There is no evidence of pneumon ia or pulmonary edema. Pleura: There is no pleural effusion or pneumot horax. Heart and mediastinum: The heart and the mediastinum are normal. Aortic arch calcifications. Bones: No acute bony abnormality. Degenerat leah changes of the spine. Upper abdomen: No free air under the diaphragm. Abdominal aortic calcifications. IMPRESSION: No acute cardiopulmonar y disease. A 1.8 cm nodular opacity in the lung base may represent a pulmo nary nodule. Recommend further evaluation with chest CT without contrast. Dictated by: Kenny Garsia M.D. on 10/27/2017 at 11:18 Elect ronically approved by: Kenny Garsia M.D. on 10/27/2017 at 11:18 Dictated By: KENNY GARSIA MD 1118 Transcribed By: NAOMI on 10/27/17 1118 COPY TO: WHITNEY BURKETT MD
--- OUTSIDE RECORDS SUMMARY | 2020-06-15 14:05 | XMS REPORT | Clinical Summary ---
Author Author [facility] Organization [facility] Address Unknown Phone Unavailable Care Team Providers Care Supervisor Curing Room Name Role Phone PCP Unavailable Allergies Comments Active Allergy Reactions Severity Noted Date Penicillin Nausea and 09/25/2017 Vomiting Medications End Date Status Medication Sig Dispensed Refills Start Date Active rivaroxaban (XARELTO) 20 Take 1 tablet 0 09/25201 mg tablet by mouth 8 daily (with dinner). Active rosuvastatin (CRESTOR) 40 Take 1 tablet 0 02/ 9/201 mg tablet by mouth at 8 bedtime nightly. Active glipiZIDE (GLUCOTROL) 5 Take 1 tablet 0 201 mg tablet by mouth 2 8 times daily (before meals). Active metFORMIN (GLUCOPHAGE) Take 1 tablet 0 09/25/2 01 1,000 mg tablet by mouth 2 8 times daily (with meals). Active tamsulosin (FLOMAX) 0.4 Take 1 0 mg extended release capsule by 8 capsule mouth daily. Active metOLazone (ZAROXOLYN) Take 1 tablet 0 09/25/2 01 2.5 mg tablet by mouth 8 daily. Active allopurinol (ZYLOPRIM) Take 1 tablet 0 09/25/2 01 300 mg tablet by mouth 8 daily. Active pantoprazole (PROTONIX) Take 1 tablet 0 40 mg delayed release by mouth 8 tablet daily. Active isosorbide mononitrate Take 1 tablet 0 09/25/2 01 (IMDUR) 60 mg extended by mouth 8 release tablet daily. Active metoprolol tartrate Take 1.5 0 (LOPRESSOR) 50 mg tablet tablets by 8 mouth 2 times daily. Active losartan (COZAAR) 100 mg Take 1 tablet 0 09/25 tablet by mouth 8 daily. Active digoxin (LANOXIN) 125 mcg Take 1 tablet 0 09/07 tablet by mouth 8 daily. Active colchicine (COLCRYS) 0.6 Take 1 tablet 0 09/25 mg tablet by mouth 8 daily. Active furosemide (LASIX) 20 mg Take 2 0 09/25 tablet tablets by 8 mouth 2 times daily. Active potassium chloride Take 1 tablet 0 (KLOR-CON M20) 20 mEq by mouth 2 8 extended release tablet times daily. Active oxybutynin (DITROPAN) 5 Take 1 tablet 0 mg tablet by mouth 3 8 times daily. Active gabapentin (NEURONTIN) Take 1 30 capsule 1 300 mg capsule by 8 capsuleIndications: mouth at Neuropathy bedtime nightly. Active Problems Problem Noted Date Chronic congestive heart failure 09/25/2017 Type 2 diabetes mellitus with complication 8 Gout 09/25/2017 Immunizations Name Administration Dates Next Due Influenza <Unspecified> 09/14/2017 Family History Medical History Relation Name Comments Arthritis Brother Stroke Brother Arthritis Father Heart Father Arthritis Mother Diabetes Mother Heart Mother Relation Name Status Comments Brother Father Mother Social History Date Tobacco Use Types Packs/Day Years Used Quit: 2014 Former Smoker 57 Smokeless Tobacco: Never Used Drinks/Week oz/Week Comments Alcohol Use social Yes Food Insecurity Answer Date Recorded Within the past 12 months, you worried that your Never robert e 09/25/2017 food would run out before you got money to buy more. Within the past 12 months, the food you bought Never true 09/25/2017 just didn't last and you didn't have mo patrice to get more. Sex Assigned at Date Recorded Not on file Industry Job Start Date Occupation Not on file Not on file Not on file Travel End Travel History Travel Start No recent travel history available. Last Filed Vital Signs Not on file Plan of Treatment Health Maintenance Due Date Last Done Comments DM Retinal Exam (Yearly) 10/12/1966 Colorectal Cancer Scrn 10/12/1998 Annual (FIT/FOBT) Age 50 to 75 IMM Pneumococcal Age 65 10/12/2013 and Up DM Foot Exam (Yearly) 09/25/2018 09/25/2017 DM HGBA1C (Yearly) 09/25/2018 09/25/2017 IMM Influenza Seasonal 05/07/2020 09/14/2017May to October (>/= 19 yrs) Results Not on fileafter 06/15/2019 Insurance Type Payer Benefit Subscriber ID Effective Phone Address Plan / Dates Group [facility] xxxxxxxxx 2018-P [phone] [address] MEDICARE MEDICARE resent [id number] [place] [address] [place] MED[place] [id number] xxxxxxxxx 2017-P [phone] [address] QUALIFIED resent [id number] MEDICARE [place], [place] BENEFICIAR [id number] Y
--- NOTE | 2020-06-15 17:16 | Consultation ---
DATE OF CONSULTATION: Cardiology Consult HISTORY OF PRESENT ILLNESS: Issac Kuo is a 74-year-old male with past medical history of hypertension, diabetes, hyperlipidemia, atrial fibrillation (on Xarelto), chronic systolic CHF, peripheral vascular disease with stenting in the past, and CVI with previous vein ablation, admitted complaining of right lower extremity redness and severe pain associated with bilateral lower extremity worsening swelling. Onset of redness started about few days ago and onset of pain was yesterday evening. The patient denies any shortness of breath nor any chest pain. REVIEW OF SYSTEMS: A detailed 12-point review of systems was performed and was negative except as noted in HPI above. PAST MEDICAL HISTORY: As mentioned above, hypertension, diabetes, hyperlipidemia, atrial fibrillation, chronic systolic CHF, PVD, CVI, gout, arthritis, previous VT, CKD 3, BPH, and hypothyroidism. PAST SURGICAL HISTORY: Eye surgery and bilateral lower extremity stent. FAMILY HISTORY: Significant for hypertension. The patient's sister and brother have diabetes and the patient's brother had a CVA. SOCIAL HISTORY: The patient admits to occasional use of alcohol and none smoking. He lives at home with family. MEDICATIONS: The patient is taking cardiac medications; metoprolol, losartan, digoxin, Xarelto, Crestor, furosemide 40 mg b.i.d., levothyroxine, also taking allopurinol, baclofen, cyclobenzaprine, Crestor, and tamsulosin. ALLERGIES: TO PENICILLIN. PHYSICAL EXAMINATION: VITAL SIGNS: Blood pressure 134/84, temperature of 98.6, pulse of 85, respiratory rate of 16, and pulse oximetry 99% on room air. GENERAL: The patient is well developed and well nourished. No acute respiratory distress. SKIN: Normal in appearance, texture, and temperature. Warm and dry. HEENT: The patient's cranium is normocephalic and atraumatic. Pupils are equally round and reactive to light and accommodation. Sclerae are nonicteric. Ears are normal. Mucosa is moist. Throat is clear. NECK: Supple. Full range of motion. No cervical lymphadenopathy. No thyromegaly. Carotid upstroke is normal bilaterally without bruits. RESPIRATORY: Normal respiratory effort. LUNGS: Diminished to bases. No wheezing or rhonchi. No rales or rubs. CARDIOVASCULAR: S1 and S2 audible. Regular. No significant murmurs heard. GI: Soft, nontender, and nondistended. Obese. Bowel sounds are present. EXTREMITIES: Right LE redness and +2 edema. Left extremity; no redness, no cyanosis, +2 edema. Pulses are weak, but palpable. Tender to touch. Warm to touch. NEUROLOGIC: Motor and sensory examination of the upper and lower extremities are normal. Reflexes are normal and symmetrical bilaterally. LABORATORY DATA: WBC 14.6, hemoglobin 11.3, hematocrit 37.7, MCV 82.3, MCH 24.7, MCHC 30.0, and platelets 249. Chemistry; sodium 137, potassium 3.4, chloride 92, carbon dioxide 31, anion gap 17.4, BUN is 29, and creatinine is 1.56. Troponin 0.016. CK 60 and CK-MB 1.90. ASSESSMENT: 1. Cellulitis of the right lower extremity. 2. History of CVI/chronic venous insufficiency, peripheral arterial disease/peripheral vascular disease with previous stent and venous ablation. 3. History of hypertension, diabetes. 4. Obesity. 5. Hypothyroidism. 6. Xzmaw-mj-tqglkvn kidney disease. 7. Gout. 8. Hypokalemia. PLAN: 1. Bilateral lower extremity venous study. 2. Telemetry monitoring. 3. Echocardiogram to re-evaluate valves and LV function. 4. Continue diuresis and restart cardiac medication, optimize CHF, medical management. 5. Monitor intake and output. Replace electrolytes as needed, low-sodium diet and fluid restriction, CHF education. 6. Continue with IV antibiotics for right lower extremity cellulitis and leukocytosis. Further recommendation will follow according to the patient's clinical course. Thank you for this consultation. We will continue to follow. Dictated by Carolann Ruano NP MD SURESH Rao/BHARGAVI /[id number]
--- NOTE | 2020-06-15 20:28 | NUR ---
Received pt from ED via w/c, assisted to bed. Pt a/o x3. No c/o at this time. No s/sx of acute distress noted. Pt orientated to room. Bed low and locked, call grider and personal items within reach. Will admit and monitor pt.
[2020-06-15 23:40] VITALS: BP 149/98
[2020-06-16] VITALS (8 sets, daily range): BP systolic 96–156; BP diastolic 54–98
--- NOTE | 2020-06-16 00:37 | NUR ---
History and Physical [id number] Date: 06/15/2020 PCP: Don Donovan Hospital: Miguel Farrell Right leg cellulitis 05/09/2020 varicose vein injections Leg edema Thank you Dr Donovan.
[2020-06-16] MEDS ORDERED: ALBUTEROL SULF 0.083% NEB SOLN 3 ML NEB NEB PRN (00:45)
[2020-06-16] MEDS ORDERED: HYDRALAZINE HCL 20 MG/ML VIAL IV PRN (00:45)
[2020-06-16] MEDS ORDERED: ACETAMINOPHEN 325 MG TAB PO PRN (01:00)
[2020-06-16] MEDS ORDERED: DEXTROSE 50% SYRINGE 50 ML IV PRN (01:15)
[2020-06-16] MEDS: FUROSEMIDE INJ 10 MG/ML 4 ML VIAL IV SCH ×3 (02:04→20:36)
[2020-06-16] MEDS: MORPHINE SULFATE INJ 4 MG/ML INJ 1ML IV PRN ×2 (02:05→09:41)
[2020-06-16] MEDS ORDERED: INSULIN LISPRO 100 UNIT/1 ML 3ML VIAL SQ SCH (02:15)
--- NOTE | 2020-06-16 04:23 | History and Physical ---
PRIMARY CARE DOCTOR: Don Donovan MD [facility] PHYSICIAN: Dr. Miguel Christina CHIEF COMPLAINT: Neck pain. HISTORY OF PRESENT ILLNESS: Mr. Kuo is a pleasant 74-year-old gentleman with right leg pain. The patient states his leg was hurting recently after removing bandages that were placed by his vein doctor on May 09, 2020, for injections. The patient came to the emergency room. White blood count was seen at 14.6. His right leg was seen to be very painful and inflammatory and erythematous. The patient with ultrasound leg in the Emergency Room preliminarily was not remarkable. At this point, he was recommended for inpatient hospitalization. PAST MEDICAL HISTORY: Diabetes, hypertension, CHF, hyperlipidemia, DVT on anticoagulation, chronic constipation, hyperlipidemia, gout/arthritis, coronary artery disease status post PCI, eye surgery, bladder surgery, leg stents. MEDICATIONS: Medication list reviewed per the chart record includes metolazone 5, Lasix 40 b.i.d., Symbicort, tamsulosin 0.5, albuterol, valsartan 80, Xarelto 20, rosuvastatin 40 at bedtime, digoxin 0.125, KCl 15, allopurinol 300, Lasix, metoprolol 50 b.i.d., baclofen 5 p.r.n., Jentadueto 2.12/999 one tablet b.i.d., lispro 5 units t.i.d., glargine 22 units a.m. ALLERGIES: PENICILLIN CITED. SOCIAL HISTORY: No heavy alcohol use, no drugs. He smoked from age [age], one pack per day. 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 FAMILY HISTORY: Noncontributory. REVIEW OF SYSTEMS: GENERAL: No weight changes. OPHTHALMOLOGIC: No floaters. ENT: No mouth ulcers. ENDOCRINE: No thyroid disease active. PULMONARY: History of asthma. IMMUNOLOGIC: Small allergies. CARDIAC: No recent heart attack. GI: No diarrhea. : No blood in urine. DERMATOLOGIC: No alopecia accelerated. NEUROLOGIC: No seizures. MUSCULOSKELETAL: There is some pain in the joints. PHYSICAL EXAMINATION: VITAL SIGNS: Afebrile, vital signs noted and reviewed per the chart record. GENERAL: No acute distress. Alert, calm, talking, but a lot of pain to touch his right leg. HEENT: Normocephalic, atraumatic. NECK: Supple. Throat midline. LUNGS: Bilateral air entry, clear. CARDIOVASCULAR: S1, S2. No murmurs, rubs, or gallops. ABDOMEN: Soft, nontender. EXTREMITIES: No clubbing. No cyanosis. There are some small venous stasis changes to both legs, right lower extremity with large area larger than hand of erythema and very tender to the touch and mildly warm. NEUROLOGIC: Moves all of his extremities. Nonfocal grossly. LAB: 37 hematocrit, 249 platelets. 39 BUN, 1.56 creatinine. IMPRESSION AND PLAN: 1. Right lower extremity cellulitis emerging/evolving. 2. Recent varicose vein injections, May 09, 2020. 3. History of deep vein thrombosis, previous. 4. Hypertension. 5. Diabetes. 6. Congestive heart failure. 7. Coronary artery disease status post PCI. 8. Hyperlipidemia. 9. Chronic systolic congestive heart failure, compensated. 10. Chronic kidney disease 3. 11. Benign prostatic hyperplasia. 12. Hypothyroidism. Aggressive antibiotics. Follow up closely. Follow up with cardiovascular expert to reassess arterial and venous help. Continue Xarelto 20 mg per day per now. Treat high blood pressure and diabetes. Ensure appropriate diuresis without harming the kidneys. Thank you very much, Dr. Donovan. Please call for questions. Krzysztof Cyr MD GMN/MODL /[id number]
[2020-06-16 05:56] LABS: BASOPHILS % 0.3 % (0.0-1.0); EOSINOPHILS # (AUTO) 0.2 (0.0-0.4); EOSINOPHILS % 1.5 % (0.0-6.0); HEMATOCRIT 38.1 % (38.2-49.6); HEMOGLOBIN 11.5 g/dL (14.0-18.0); LYMPHOCYTES # (AUTO) 1.4 (1.0-3.2); LYMPHOCYTES % 12.7 % (18.0-39.1); MEAN CORPUSCULAR HEMOGLOBIN 24.7 pg (28-32); MEAN CORPUSCULAR HGB CONC 30.2 g/dL (31-35); MEAN CORPUSCULAR VOLUME 81.8 fL (81-99); MONOCYTES # (AUTO) 1.2 (0.2-0.8); MONOCYTES % 10.8 % (4.4-11.3); NEUTROPHILS # (AUTO) 8.2 (2.1-6.9); NEUTROPHILS % 74.2 % (38.7-80.0); PLATELET COUNT 247 x10e3/uL (140-360); RED BLOOD COUNT 4.66 x10e6/uL (4.3-5.7); RED CELL DISTRIBUTION WIDTH 18.9 % (11.7-14.4)
[2020-06-16 06:14] LABS: MAGNESIUM 1.8 MG/DL (1.3-2.1); PHOSPHORUS 2.8 MG/DL (2.3-4.7)
[2020-06-16 06:14] LABS: ALBUMIN 3.9 g/dL (3.5-5.0); ALBUMIN/GLOBULIN RATIO 0.9 (0.8-2.0); CALCIUM 9.6 mg/dL (8.4-10.2); CREATININE, SERUM 1.42 mg/dL (0.72-1.25)
[2020-06-16 06:34] LABS: THYROID STIMULATING HORMONE 3.786 uIU/mL (0.350-4.940)
[2020-06-16] MEDS: INSULIN REGULAR, HUMAN 100 UNIT/1 ML 3ML VIAL SQ SCH ×4 (07:38→20:50)
[2020-06-16] MEDS: SIMVASTATIN 40 MG TAB PO SCH (08:48)
[2020-06-16] MEDS: METOLAZONE 5 MG TAB PO SCH (08:48)
[2020-06-16] MEDS: POTASSIUM CHLORIDE 10MEQ EA PO SCH (08:48)
[2020-06-16] MEDS: DIGOXIN 0.125 MG TAB PO SCH (08:48)
[2020-06-16] MEDS: METOPROLOL TARTRATE 50 MG TAB PO SCH ×2 (08:48→17:11)
[2020-06-16] MEDS: POLYETHYLENE GLYCOL 3350 17 GM PACK PO SCH (08:48)
[2020-06-16] MEDS: ALLOPURINOL 300 MG TAB PO SCH (08:48)
[2020-06-16] MEDS: TAMSULOSIN HCL 0.4 MG CAP PO SCH (08:48)
[2020-06-16] MEDS: OMEGA 3 POLYUNSAT FATTY ACIDS 1000 MG SOFTGEL PO SCH ×2 (08:48→17:11)
[2020-06-16] MEDS: DOCUSATE SODIUM 100 MG CAP PO SCH ×2 (08:54→17:10)
[2020-06-16] MEDS: INSULIN LISPRO 100 UNIT/1 ML 3ML VIAL SQ SCH ×3 (08:54→20:51)
[2020-06-16] MEDS ORDERED: RIVAROXABAN 20 MG TABLET PO SCH (09:00)
[2020-06-16] MEDS ORDERED: VALSARTAN 160 MG TAB PO SCH (09:00)
[2020-06-16] MEDS ORDERED: INSULIN GLARGINE 100 UNITS/ML VIAL SQ SCH (09:00)
[2020-06-16] MEDS: POTASSIUM CHLORIDE 20 MEQ TAB CR PO SCH (09:32)
[2020-06-16] MEDS: CEFEPIME 1GM/NS 0.9% 50 ML 50 ML IV SCH (14:05)
[2020-06-16] MEDS ORDERED: SODIUM CHLORIDE 0.9% 250ML 250 ML ONE (14:13)
[2020-06-16] MEDS: VANCOMYCIN 1GM/NS 250 ML 250 ML IV SCH (14:32)
[2020-06-16] MEDS: RIVAROXABAN 20 MG TABLET PO SCH (17:11)
--- NOTE | 2020-06-16 19:17 | NUR ---
Received pt in bed asleep, easily awaken. Alert and orientated. Bed in low and locked position, call grider and personal items within reach. Bedside report completed, no s/sx of acute distress noted. No c/o at this time. Will cont to monitor
[2020-06-16] MEDS: BACLOFEN 10 MG TAB PO PRN (20:36)
[2020-06-17] VITALS (8 sets, daily range): BP systolic 90–135; BP diastolic 50–77
--- NOTE | 2020-06-17 00:50 | NUR ---
MEDICINE ATTENDING NOTE Date: 06/16/[address] Miguel Christina SUBJECTIVE: RA fio2 no respiratory distress no BM x 3 days still with a very painful leg, probably less red although patient cannot notice a difference, mild leg edema ~1+ able to walk REVIEW OF SYSTEMS: no GI bleed, no rash PHYSICAL EXAMINATION: VITAL SIGNS: vital signs noted and reviewed per the chart record. GENERAL: No acute distress. Alert, calm, talking HEENT: Normocephalic, atraumatic. NECK: Supple. Throat midline. LUNGS: Bilateral air entry, clear. CARDIOVASCULAR: S1, S2. No murmurs, rubs, or gallops. ABDOMEN: Soft, nontender. EXTREMITIES: No clubbing. No cyanosis. some mild to moderate venous stasis changes to both legs, right lower extremity continues with patch of erythema and mild warmth. very painful still. NEUROLOGIC: Moves all of his extremities. Nonfocal LAB: k 3.0, cr 1.42. wbc 11 IMPRESSION AND PLAN: 1. Right lower extremity cellulitis 2. Recent varicose vein injections, May 09, 2020. 3. Poor foot hygiene 4. History of deep vein thrombosis, previous. 5. Hypertension. 6. Diabetes. 7. Coronary artery disease s/p PCI. 8. Hyperlipidemia. 9. Chronic systolic congestive heart failure, compensated. 10. Chronic kidney disease 3. 11. Benign prostatic hyperplasia. 12. Hypothyroidism. 13. constipation Aggressive antibiotics. WILL NEED VANCOMYCIN TROUGH SOON Follow up closely with serial evaluations Follow up with cardiovascular expert Continue Xarelto 20 mg per day Treat high blood pressure and diabetes. Ensure appropriate diuresis without harming the kidneys. Fix K BM medications Thank you very much, Dr. Donovan. Please call for questions.
[2020-06-17] MEDS ORDERED: CITRATE OF MAGNESIA 300ML BOTTLE PO ONE (02:00)
[2020-06-17] MEDS ORDERED: MAGNESIUM OXIDE 400 MG TAB PO ONE (02:00)
[2020-06-17] MEDS: ACETAMINOPHEN/CODEINE 300MG - 30MG TAB PO PRN (03:30)
--- NOTE | 2020-06-17 07:16 | NUR ---
Rechecked BS its 366, scheduled insulin will give
[2020-06-17 07:31] LABS: BASOPHILS % 0.4 % (0.0-1.0); EOSINOPHILS # (AUTO) 0.2 (0.0-0.4); HEMATOCRIT 37.1 % (38.2-49.6); HEMOGLOBIN 11.3 g/dL (14.0-18.0); LYMPHOCYTES # (AUTO) 1.3 (1.0-3.2); LYMPHOCYTES % 11.1 % (18.0-39.1); MEAN CORPUSCULAR HEMOGLOBIN 24.9 pg (28-32); MEAN CORPUSCULAR HGB CONC 30.5 g/dL (31-35); MEAN CORPUSCULAR VOLUME 81.7 fL (81-99); MONOCYTES # (AUTO) 1.1 (0.2-0.8); MONOCYTES % 9.2 % (4.4-11.3); NEUTROPHILS # (AUTO) 8.8 (2.1-6.9); PLATELET COUNT 247 x10e3/uL (140-360); RED BLOOD COUNT 4.54 x10e6/uL (4.3-5.7); RED CELL DISTRIBUTION WIDTH 18.5 % (11.7-14.4)
[2020-06-17 07:50] LABS: ANION GAP 16.4 mmol/L (8-16); CREATININE, SERUM 2.19 mg/dL (0.72-1.25); MAGNESIUM 2.1 MG/DL (1.3-2.1); POTASSIUM 3.4 mmol/L (3.5-5.1)
[2020-06-17] MEDS: INSULIN REGULAR, HUMAN 100 UNIT/1 ML 3ML VIAL SQ SCH ×4 (07:56→21:00)
[2020-06-17] MEDS: INSULIN LISPRO 100 UNIT/1 ML 3ML VIAL SQ SCH ×3 (08:22→21:00)
[2020-06-17] MEDS: INSULIN GLARGINE 100 UNITS/ML VIAL SQ SCH (08:44)
[2020-06-17] MEDS: DIGOXIN 0.125 MG TAB PO SCH (08:54)
[2020-06-17] MEDS: METOPROLOL TARTRATE 50 MG TAB PO SCH ×2 (08:54→17:05)
[2020-06-17] MEDS: VALSARTAN 80 MG TAB PO SCH (08:54)
[2020-06-17] MEDS: DOCUSATE SODIUM 100 MG CAP PO SCH ×3 (08:54→20:58)
[2020-06-17] MEDS: POTASSIUM CHLORIDE 10MEQ EA PO SCH (08:54)
[2020-06-17] MEDS: POTASSIUM CHLORIDE 20 MEQ TAB CR PO SCH (08:54)
[2020-06-17] MEDS: OMEGA 3 POLYUNSAT FATTY ACIDS 1000 MG SOFTGEL PO SCH ×2 (08:54→17:05)
[2020-06-17] MEDS: FUROSEMIDE INJ 10 MG/ML 4 ML VIAL IV SCH ×2 (08:54→20:57)
[2020-06-17] MEDS: TAMSULOSIN HCL 0.4 MG CAP PO SCH (08:54)
[2020-06-17] MEDS: POLYETHYLENE GLYCOL 3350 17 GM PACK PO SCH (08:55)
[2020-06-17] MEDS: METOLAZONE 5 MG TAB PO SCH (08:55)
[2020-06-17] MEDS: ALLOPURINOL 300 MG TAB PO SCH (08:55)
[2020-06-17] MEDS: SIMVASTATIN 40 MG TAB PO SCH (08:55)
--- NOTE | 2020-06-17 09:18 | NUR ---
2 DAY OBS PT ADMITTED W CELLULITIS ABX X2, BS ELEVATED CALL TO DR. JARAMILLO FOR INPT ORDER.
--- NOTE | 2020-06-17 11:16 | NUR ---
notified Dr Barnard elevated BS 448. No new orders this time, patient not in any distress, keep monitoring
[2020-06-17] MEDS: CEFEPIME 1GM/NS 0.9% 50 ML 50 ML IV SCH (14:29)
[2020-06-17] MEDS: VANCOMYCIN 1GM/NS 250 ML 250 ML IV SCH (14:38)
[2020-06-17] MEDS: RIVAROXABAN 20 MG TABLET PO SCH (17:05)
--- NOTE | 2020-06-17 17:17 | NUR ---
Nutrition Screen Note RD Recommendation for Physician: - Add 1800 ADA to Cardiac diet - Insulin and BG management per MD Plan of Care: RD following, monitoring for tolerance and adequacy Nutrition reason for involvement: Nutrition Risk Trigger Primary Diagnose(s): R lower leg cellulitis and abscess PMH: DM, HTN, CHF, HLD, chronic constipation, CAD, gout, CKD3, DVT Ht: 67 in Wt: 224 lb BMI: 35.1 kg/m2 IBW: [address] Assessment: (06/17) 74 YOM admitted for R lower leg cellulitis following recent vascular procedure. Pt seen today per MST screen. 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 Pt denies any N/V/C/D. Pt denies any wt loss. Pt declined diet education, reports home health aid has been educated on recommended diet restrictions and does the cooking at home. 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 Pt with no questions or concerns at time of visit. Chart reviewed. Labs and meds reviewed, BG in the 300-500s currently- insulin per MD. Will continue to monitor. Current Diet: Cardiac Malnutrition Evaluation (06/17/20) The patient does not meet criteria for a specified degree of malnutrition at this time. Will re-evaluate at follow-up as appropriate. Diet Education Needs Assessment: Diet education indicated, pt declined. Diet tolerance: tolerating po Nutrition Care Level: low Signed: Jacey Yu RD, LD, [facility]
--- NOTE | 2020-06-17 18:17 | NUR ---
Patient ambulating in his room, not in any distress, denies any pain, Per Dr Akil Farrell will do rounds today
--- NOTE | 2020-06-17 20:00 | NUR ---
INITIAL ASSESSMENT COMPLETE, PT UP ON SIDE OF THE BED, TELE ON PT, IV INTACT, TELE IN PLACE, LOWER LEGS REDDENED AND 1+ EDEMA, NO DISTRESS NOTED, CALL LIGHT IN REACH, WILL CONTINUE TO MONITOR PT
[2020-06-18] VITALS (7 sets, daily range): BP systolic 98–137; BP diastolic 71–90
--- NOTE | 2020-06-18 01:34 | Progress Note ---
DATE: 06/17/2020 SUBJECTIVE: The patient is doing fine at this time. Denies fever, no chills. No chest pain or shortness of breath. No abdominal pain. No nausea, no vomiting. OBJECTIVE: GENERAL: The patient alert, oriented to person, time, and place. The patient in no apparent distress. VITAL SIGNS: Blood pressure 96/65, respirations 20, pulse 71, temperature 98.3. HEENT: Head is normocephalic and atraumatic. NECK: Supple. No JVD. Thyroid was not enlarged. LUNGS: Good air entry. HEART: Regular rate and rhythm. No murmurs or gallops. ABDOMEN: Soft, nontender. EXTREMITIES: No clubbing, no cyanosis. There was some small venous stasis changes to both lower extremities. Right lower extremity, there was noted previously a large area with erythema. NEURO: Nonfocal. ASSESSMENT: 1. Right lower extremity cellulitis, improved. 2. Recent varicose vein injection. 3. Deep venous thrombosis. 4. Hypertension. 5. Diabetes mellitus. 6. Congestive heart failure. 7. Coronary artery disease. 8. Hyperlipidemia. 9. Chronic systolic heart failure. 10. Chronic kidney disease. 11. BPH. 12. Hypothyroidism. PLAN OF CARE: Continue present care. Continue antibiotic as advised. MD NICANOR Rae/BHARGAVI /[id number]
--- NOTE | 2020-06-18 06:30 | NUR ---
pt up walking in the [address], sitting in chair, no distress noted, call light in reach,
[2020-06-18] MEDS: ACETAMINOPHEN/CODEINE 300MG - 30MG TAB PO PRN ×2 (07:36→15:27)
--- NOTE | 2020-06-18 08:30 | NUR ---
The pt. reports that his pain med is insufficient and was advised that I will speak with the
[2020-06-18] MEDS: FUROSEMIDE INJ 10 MG/ML 4 ML VIAL IV SCH ×2 (08:41→20:29)
[2020-06-18] MEDS: DOCUSATE SODIUM 100 MG CAP PO SCH ×3 (08:42→20:29)
[2020-06-18] MEDS: TAMSULOSIN HCL 0.4 MG CAP PO SCH (08:43)
[2020-06-18] MEDS: VALSARTAN 80 MG TAB PO SCH (08:43)
[2020-06-18] MEDS: POTASSIUM CHLORIDE 20 MEQ TAB CR PO SCH (08:44)
[2020-06-18] MEDS: METOPROLOL TARTRATE 50 MG TAB PO SCH ×2 (08:46→17:56)
[2020-06-18] MEDS: DIGOXIN 0.125 MG TAB PO SCH (08:46)
[2020-06-18] MEDS: METOLAZONE 5 MG TAB PO SCH (08:47)
[2020-06-18] MEDS: OMEGA 3 POLYUNSAT FATTY ACIDS 1000 MG SOFTGEL PO SCH ×2 (08:47→17:56)
[2020-06-18] MEDS: SIMVASTATIN 40 MG TAB PO SCH (08:47)
[2020-06-18] MEDS: ALLOPURINOL 300 MG TAB PO SCH (08:47)
[2020-06-18] MEDS: POLYETHYLENE GLYCOL 3350 17 GM PACK PO SCH (09:00)
[2020-06-18] MEDS: INSULIN REGULAR, HUMAN 100 UNIT/1 ML 3ML VIAL SQ SCH ×4 (09:30→20:29)
[2020-06-18] MEDS: POTASSIUM CHLORIDE 10MEQ EA PO SCH (09:47)
[2020-06-18] MEDS: INSULIN LISPRO 100 UNIT/1 ML 3ML VIAL SQ SCH ×3 (09:47→20:29)
[2020-06-18] MEDS: INSULIN GLARGINE 100 UNITS/ML VIAL SQ SCH (09:48)
--- NOTE | 2020-06-18 11:46 | NUR ---
A call was placed to the to discuss the pt.'s desire to leave the hospital and see his PCP for a different plan of care.
[2020-06-18 14:46] LABS: ANION GAP 14.8 mmol/L (8-16); CALCIUM 9.2 mg/dL (8.4-10.2); CREATININE, SERUM 1.66 mg/dL (0.72-1.25); POTASSIUM 3.8 mmol/L (3.5-5.1)
[2020-06-18] MEDS: VANCOMYCIN 1GM/NS 250 ML 250 ML IV SCH (15:04)
[2020-06-18] MEDS: CEFEPIME 1GM/NS 0.9% 50 ML 50 ML IV SCH (15:04)
--- NOTE | 2020-06-18 15:47 | NUR ---
assessment , pt expressed need of healing , cloth framer validated feeling , hope building and prayer . Pt expressed more hope and dean. chaplain Rupert Sutton
[2020-06-18] MEDS: RIVAROXABAN 20 MG TABLET PO SCH (17:56)
[2020-06-18] MEDS: BACITRACIN ZINC 15 GM OINT TOP SCH (17:56)
--- NOTE | 2020-06-18 20:29 | Progress Note ---
DATE: 06/18/2020 SUBJECTIVE: The patient has been doing fine. No new events. No fever. No chills. No abdominal pain. No nausea, vomiting, or diarrhea. OBJECTIVE: GENERAL: The patient is alert and oriented to person, time, and place. VITAL SIGNS: Blood pressure 127/79, respirations 24, pulse 80, and temperature 97.7. List of problems noted. The patient will follow up with the right lower extremity cellulitis, which has improved. We will continue present antibiotic as it has been advised. The patient is doing well. LIST OF MEDICATIONS: Noted. Presently on antibiotics as it has been advised. LABORATORY DATA: As far as laboratory data is concerned , WBC count 11.37, hemoglobin 12.3, platelet count 247,000. Chem profile reveals sodium 126, potassium 3.8, chloride 93, CO2 of 32, BUN 42 and creatinine 1.66. . ASSESSMENT: continue antibiotic as it has been advised and remarkably the sample of the wound cultures are negative. As far as what the microbiology report is concerned after [address] Krzysztof Cyr has been following the patient and assessment is noted and would continue anticoagulation. In terms of previous kidney function on admission and kidney function has been borderline. In terms of the patient's medications and fluid, we will continue present care as it has been advised. MD NICANOR Rae/BHARGAVI /[id number]
[2020-06-19] VITALS (8 sets, daily range): BP systolic 115–139; BP diastolic 61–101
[2020-06-19 06:41] LABS: ANION GAP 14.8 mmol/L (8-16); CALCIUM 9.8 mg/dL (8.4-10.2); CREATININE, SERUM 1.42 mg/dL (0.72-1.25); POTASSIUM 3.8 mmol/L (3.5-5.1)
[2020-06-19] MEDS: INSULIN REGULAR, HUMAN 100 UNIT/1 ML 3ML VIAL SQ SCH ×4 (07:30→20:32)
--- NOTE | 2020-06-19 07:35 | NUR ---
PATIENT OUT OF BED TO CHAIR TALKING ON THE PHONE, NO DISTRESS NOTED. DRESSING CHANGED TO LOWER EXTREMITIES. CALL LIGHT AT REACH.
[2020-06-19] MEDS: POTASSIUM CHLORIDE 10MEQ EA PO SCH (09:00)
[2020-06-19] MEDS: INSULIN GLARGINE 100 UNITS/ML VIAL SQ SCH (09:00)
[2020-06-19] MEDS: INSULIN LISPRO 100 UNIT/1 ML 3ML VIAL SQ SCH ×3 (09:00→20:33)
[2020-06-19] MEDS: POLYETHYLENE GLYCOL 3350 17 GM PACK PO SCH (09:00)
[2020-06-19] MEDS: FUROSEMIDE INJ 10 MG/ML 4 ML VIAL IV SCH ×2 (09:13→20:34)
[2020-06-19] MEDS: DOCUSATE SODIUM 100 MG CAP PO SCH ×3 (09:13→20:34)
[2020-06-19] MEDS: TAMSULOSIN HCL 0.4 MG CAP PO SCH (09:14)
[2020-06-19] MEDS: VALSARTAN 80 MG TAB PO SCH (09:14)
[2020-06-19] MEDS: POTASSIUM CHLORIDE 20 MEQ TAB CR PO SCH (09:14)
[2020-06-19] MEDS: SIMVASTATIN 40 MG TAB PO SCH (09:15)
[2020-06-19] MEDS: OMEGA 3 POLYUNSAT FATTY ACIDS 1000 MG SOFTGEL PO SCH ×2 (09:15→17:00)
[2020-06-19] MEDS: METOLAZONE 5 MG TAB PO SCH (09:15)
[2020-06-19] MEDS: ALLOPURINOL 300 MG TAB PO SCH (09:15)
[2020-06-19] MEDS: BACITRACIN ZINC 15 GM OINT TOP SCH ×2 (09:30→17:15)
--- NOTE | 2020-06-19 10:30 | NUR ---
WOUND CARE CONSULT 74 YO MALE HX OF BILATERAL LOWER LEG EDEMA WITH PARTIAL THICKNESS WOUND TO LEFT LOWER LEG 2.5CM X1CM X0.1CM ROMEO 20 0N CONSERVATIVE PUP STATUS AND INTERVENTIONS VISCO SURFACE LABS: WBC- 11.37 HGB- 11.3 GLUCOSE-240 HEAD TO TOE SKIN ASSESSMENT COMPLETE PATIENT PRESENTS WITH BILATERAL LOWER LEG EDEMA WITH PARTIAL THICKNESS WOUND TO LEFT LOWER LEG 2.5CM X1CM X0.1CM . RECOMMENDATIONS: NURSING TO CONTINUE TO MONITOR PATIENT AND KEEP SKIN CLEAN AND FREE FROM LOOSE STOOL OR IRRITATING MOISTURE AND CONTINUE TO FOLLOW CONSERVATIVE PUP STATUS INTERVENTIONS NURSING TO CONTINUE TO GET PATIENT OUT OF BED FOR MEALS AND MUCH TOLERATED NURSING TO CLEAN PARTIAL THICKNESS WOUND TO LEFT LOWER LEG WITH NORMAL SALINE DAILY AND APPLY COLLAGEN WITH SILVER AND COVER WITH FOAM NURSING TO LIGHTLY WRAP BILATERAL LOWER EXTREMITIES WITH KERLIX AND COBAN DAILY Addendum: 06/19/20 at 1038 by Ammon Pablo RN Amended: Links added.
[2020-06-19] MEDS: ACETAMINOPHEN/CODEINE 300MG - 30MG TAB PO PRN (11:30)
--- NOTE | 2020-06-19 12:08 | NUR ---
DRESSING CHANGED TO LOWER EXTREMITIES ORDERED, PATIENT C/O PAIN. MEDICATED ORDERED. OUT OF BED TO CHAIR WITH CALL LIGHT AT REACH.
[2020-06-19] MEDS: CEFEPIME 1GM/NS 0.9% 50 ML 50 ML IV SCH (14:30)
--- NOTE | 2020-06-19 15:15 | NUR ---
PATIENT AMBULATING IN HALLWAY BY SELF, NO COMPLAIN VOICED. WILL CONTINUE TO MONITOR.
[2020-06-19] MEDS: HYDROCODONE/APAP 10MG-325MG TAB PO PRN ×2 (16:35→22:35)
[2020-06-19] MEDS: RIVAROXABAN 20 MG TABLET PO SCH (17:15)
--- NOTE | 2020-06-19 19:40 | NUR ---
pt resting comfortably in bed no signs of distress no complaints at this time
[2020-06-20] VITALS (8 sets, daily range): BP systolic 121–161; BP diastolic 67–88
--- NOTE | 2020-06-20 02:20 | Progress Note ---
DATE: 06/19/2020 SUBJECTIVE: The patient was doing fine. At the time of evaluation, still complaining of swelling on the lower extremities and is being followed pertaining wound on the left lower extremity distally. The patient denies having fever or chills. No chest pain. No abdominal pain. No nausea or vomiting. However, his chief complaint of swelling on the lower extremities. The patient has been followed up by pertaining the following problems: 1. Right lower extremity cellulitis. 2. Recent varicose vein injection. 3. History of DVT. 4. Hypertension. 5. Diabetes mellitus. 6. Coronary artery disease. 7. Status post GI. 8. Hyperlipidemia. 9. Chronic systolic congestive heart failure, compensated. 10. Chronic kidney disease, stage 3. 11. Benign prostatic hyperplasia. 12. Hypothyroidism. 13. Constipation. OBJECTIVE: GENERAL: The patient has been alert and oriented to person, time, and place. The patient appears to be in no distress. VITAL SIGNS: Blood pressure 122/81, respirations 18, pulse 81, temperature 97.1. HEENT: Head is normocephalic and atraumatic. NECK: Supple. No JVD. LUNGS: Clear. HEART: Regular rate and rhythm. ABDOMEN: Soft and nontender. EXTREMITIES: With evidence of swelling and a wound noted on the left lower extremity. No significant findings consistent with cellulitis involving the right lower extremity. LABORATORY DATA: As far as lab is concerned as of June 17, 2020, hemoglobin 11.3, platelet count 247,000, and WBC 11.37. A Chem profile reveals sodium 137, potassium 3.8, chloride 97, CO2 29, BUN 41 and creatinine 0.142. PLAN OF CARE: Continue present care as it has been advised. List of medications noted, he has been on doxycycline 100 mg t.i.d., Lasix 40 mg q.12 hours, on Humulin lispro 5 units three times a day, on a sliding scale insulin, on Xarelto, hydrocodone, antibiotic consisting of cefepime, acetaminophen, simvastatin, metolazone. , potassium chloride, Flomax, Lantus insulin, baclofen, potassium chloride. Complete list of medications noted. As far as his previous visit is concern and the patient was admitted back on October 2018, at which time, the patient did have an echocardiogram done with left ventricular ejection fraction of 50%. The patient is noted to have bilateral lower extremity edema, which has been chronic and a history of atrial fibrillation and heart failure. As far as diastolic dysfunction. As far as blood pressure is concerned, the blood pressure reasonably has been well controlled. The patient be seen and being treated for chronic systolic congestive heart failure. Echocardiogram revealed left ventricular ejection fraction of 45% to 50% and the patient is to continue present care. Sitter has been advised and we will arrange discharge planning. In the meantime, continue present treatment for the patient's medical problems. The patient's list of medication is noted. A list of medication, I think has been mentioned previously, which has been cefepime, acetaminophen, , bacitracin ointment, baclofen, and digoxin. , Lasix intravenously. Hydralazine on p.r.n. basis. Insulin Humalog-Lantus , three times a day, metolazone, metoprolol tartrate 50 mg p.o. b.i.d., omega-3. Also Zocor, Flomax, Diovan, potassium chloride. Complete list of medications noted. We will arrange follow up in the morning and we will continue to monitor kidney function. MD NICANOR Rae/OLGAL /[id number]
[2020-06-20] MEDS: HYDROCODONE/APAP 10MG-325MG TAB PO PRN ×3 (04:29→17:50)
--- NOTE | 2020-06-20 07:26 | NUR ---
PATIENT IN BED RESTING WITH HEAD OF BED ELEVATED, NO DISTRESS NOTED. REQUESTED AND RECEIVED A CUP OF COFFEE. DRESSING INTACT TO LOWER EXTREMITIES. BED IN LOWER POSITION, CALL LIGHT AT REACH.
[2020-06-20] MEDS: INSULIN REGULAR, HUMAN 100 UNIT/1 ML 3ML VIAL SQ SCH ×4 (07:30→21:06)
[2020-06-20] MEDS: POLYETHYLENE GLYCOL 3350 17 GM PACK PO SCH (09:00)
[2020-06-20] MEDS: POTASSIUM CHLORIDE 20 MEQ TAB CR PO SCH (09:00)
[2020-06-20] MEDS: VALSARTAN 80 MG TAB PO SCH (09:05)
[2020-06-20] MEDS: DOCUSATE SODIUM 100 MG CAP PO SCH ×3 (09:05→21:00)
[2020-06-20] MEDS: FUROSEMIDE INJ 10 MG/ML 4 ML VIAL IV SCH (09:05)
[2020-06-20] MEDS: TAMSULOSIN HCL 0.4 MG CAP PO SCH (09:05)
[2020-06-20] MEDS: POTASSIUM CHLORIDE 10MEQ EA PO SCH (09:05)
[2020-06-20] MEDS: OMEGA 3 POLYUNSAT FATTY ACIDS 1000 MG SOFTGEL PO SCH ×2 (09:06→17:00)
[2020-06-20] MEDS: METOLAZONE 5 MG TAB PO SCH (09:06)
[2020-06-20] MEDS: SIMVASTATIN 40 MG TAB PO SCH (09:06)
[2020-06-20] MEDS: ALLOPURINOL 300 MG TAB PO SCH (09:06)
[2020-06-20] MEDS: INSULIN GLARGINE 100 UNITS/ML VIAL SQ SCH (09:07)
[2020-06-20] MEDS: INSULIN LISPRO 100 UNIT/1 ML 3ML VIAL SQ SCH ×3 (09:08→21:06)
[2020-06-20] MEDS: BACITRACIN ZINC 15 GM OINT TOP SCH ×2 (11:16→17:39)
--- NOTE | 2020-06-20 11:17 | NUR ---
PATIENT C/O PAIN AND WAS MEDICATED ORDERED. OUT OF BED TO CHAIR TALKING ON THE PHONE. CALL LIGHT AT REACH.
[2020-06-20] MEDS: CEFEPIME 1GM/NS 0.9% 50 ML 50 ML IV SCH (14:00)
[2020-06-20] MEDS: BACLOFEN 10 MG TAB PO PRN (16:40)
[2020-06-20] MEDS: RIVAROXABAN 20 MG TABLET PO SCH (17:38)
--- NOTE | 2020-06-20 19:00 | NUR ---
Patient visited in room during nursing rounds. Patient alert and oriented x3. Ambulatory in room prn. Both legs covered with kerlix and munir bandage. Patient states wound on left leg (medial side of calf) is worse compared to right leg wound. Pt c/o right AC IV is tender and does not work anymore. Nurse to start new peripheral IV on patient tonight. Call grider within reach. Pt prefers to sit on bedside chair at this time.
--- NOTE | 2020-06-20 20:40 | NUR ---
Dr. Farrell came and visited pt in room. MD requested that dressings on both legs be unwrapped and MD saw wounds on both legs. Per MD assessment, he told patient he plans to discharge patient tomorrow afternoon.
--- NOTE | 2020-06-20 23:14 | Progress Note ---
DATE: 06/20/2020 SUBJECTIVE: The patient is doing fine at this time. The patient denies leg edema. Denies fever or chills. No chest pain. No shortness of breath. No abdominal pain. No nausea, vomiting, or diarrhea. No fever or chills. No focal weakness. REVIEW OF SYSTEMS: Essentially negative 10-point review of system except for skin where he has had some discomfort. PHYSICAL EXAMINATION: GENERAL: Revealed the patient is alert, oriented to person, time, and place. The patient was in no distress. VITAL SIGNS: Blood pressure 139/67, respirations 20, pulse 84, temperature 98.0. HEENT: Head is normocephalic and atraumatic. NECK: Supple. No JVD. LUNGS: Clear to auscultation. HEART: Regular rate and rhythm. ABDOMEN: Soft and nontender. EXTREMITIES: Erythema noted. Cellulitis involving the left lower extremity with wound noted distally which is healing well open wound with no purulent secretion. Right leg cellulitis improved. LABORATORY DATA: As of June 17, 2020, hemoglobin 11.3, white blood cell count 11.37, platelet count 247,000. Chem profile as of June 19 revealed sodium 137, potassium 3.8, chloride 97, CO2 29, BUN 41, creatinine 1.42. MEDICATIONS: The patient has been on cefepime IV, albuterol nebulizer treatment, allopurinol, Bactroban ointment, digoxin, docusate sodium, Lasix intravenously has been given. Also on Lantus insulin, Humalog insulin, and lispro insulin, metolazone, metoprolol tartrate. We will hold diuretics intravenously at this time and we will re-evaluate in the morning the patient's kidney function. MD NICANOR Rae/MODL /[id number]
[2020-06-21] VITALS (9 sets, daily range): BP systolic 112–166; BP diastolic 66–90
[2020-06-21] MEDS: HYDROCODONE/APAP 10MG-325MG TAB PO PRN ×4 (00:40→22:03)
--- NOTE | 2020-06-21 07:19 | NUR ---
PATIENT SITTING IN RECLINING CHAIR. C/O PAIN AND WAS MEDICATED ORDERED. CALL LIGHT AT REACH. WILL CONTINUE TO MONITOR.
[2020-06-21 07:21] LABS: ANION GAP 14.5 mmol/L (8-16); CALCIUM 9.7 mg/dL (8.4-10.2); CREATININE, SERUM 1.46 mg/dL (0.72-1.25); POTASSIUM 3.5 mmol/L (3.5-5.1)
[2020-06-21] MEDS: INSULIN REGULAR, HUMAN 100 UNIT/1 ML 3ML VIAL SQ SCH ×4 (07:30→21:00)
[2020-06-21] MEDS: POLYETHYLENE GLYCOL 3350 17 GM PACK PO SCH (09:00)
[2020-06-21] MEDS: POTASSIUM CHLORIDE 20 MEQ TAB CR PO SCH (09:00)
[2020-06-21] MEDS: DOCUSATE SODIUM 100 MG CAP PO SCH ×3 (09:08→21:00)
[2020-06-21] MEDS: METOLAZONE 5 MG TAB PO SCH (09:09)
[2020-06-21] MEDS: VALSARTAN 80 MG TAB PO SCH (09:09)
[2020-06-21] MEDS: OMEGA 3 POLYUNSAT FATTY ACIDS 1000 MG SOFTGEL PO SCH ×2 (09:09→17:00)
[2020-06-21] MEDS: ALLOPURINOL 300 MG TAB PO SCH (09:09)
[2020-06-21] MEDS: TAMSULOSIN HCL 0.4 MG CAP PO SCH (09:09)
[2020-06-21] MEDS: POTASSIUM CHLORIDE 10MEQ EA PO SCH (09:09)
[2020-06-21] MEDS: BACITRACIN ZINC 15 GM OINT TOP SCH ×2 (09:09→17:22)
[2020-06-21] MEDS: SIMVASTATIN 40 MG TAB PO SCH (09:09)
[2020-06-21] MEDS: INSULIN GLARGINE 100 UNITS/ML VIAL SQ SCH (09:12)
[2020-06-21] MEDS: INSULIN LISPRO 100 UNIT/1 ML 3ML VIAL SQ SCH ×3 (09:13→21:00)
--- NOTE | 2020-06-21 12:38 | NUR ---
SPOKE WITH MD REGARDING ABNORMAL BLOOD SUGAR, NO NEW ORDER RECEIVED.
[2020-06-21] MEDS: CEFEPIME 1GM/NS 0.9% 50 ML 50 ML IV SCH (14:28)
[2020-06-21] MEDS: RIVAROXABAN 20 MG TABLET PO SCH (17:22)
--- NOTE | 2020-06-21 19:00 | NUR ---
Patient visited in room during nursing rounds. Patient alert and oriented x3. Ambulatory in room prn. Both legs covered with kerlix and munir bandage. Wounds also covered with foam dressings C/D/I. Call grider within reach. Pt prefers to sit on bedside chair at this time.
--- NOTE | 2020-06-22 01:48 | Progress Note ---
DATE: 06/21/2020 SUBJECTIVE: The patient is doing fine, complaining of pain in both lower extremities. Denies fever. No chills. No chest pain or shortness of breath. No abdominal pain. No nausea or vomiting. OBJECTIVE: GENERAL: The patient has been alert, oriented to person, time, and place. The patient is in no distress. VITAL SIGNS: Blood pressure 129/67, respirations 18, pulse 84, temperature 97.3. HEENT: Head is normocephalic and atraumatic. NECK: Supple. No JVD. LUNGS: Clear to auscultation. HEART: Regular rate and rhythm. ABDOMEN: Soft, nontender. EXTREMITIES: Cellulitis involving the left lower extremity with wound noted distally, which is healing well. An open wound was noted previously with no purulent secretion. Right leg cellulitis improved. A list of medications reviewed. ASSESSMENT: 1. Right lower extremity cellulitis. 2. Diabetes mellitus type 2. 3. Hypertension. 4. Coronary artery disease. 5. Hyperlipidemia. 6. Chronic systolic congestive heart failure, compensated. 7. Chronic kidney disease, stage 3. 8. Benign prostatic hyperplasia. 9. History of deep venous thrombosis. 10. History of hypertension. 11. Hypothyroidism. 12. Constipation. PLAN OF CARE: Continue present care as it has been advised. The patient has been on antibiotics. As far as laboratory is concerned as of 06/21/2020, sodium 133, potassium 3.5, chloride 95, CO2 of 27, BUN 40, creatinine 1.46. MD NICANOR Rae/BHARGAVI /[id number]
[2020-06-22 04:00] VITALS: BP 139/98
[2020-06-22 06:08] LABS: BASOPHILS # (AUTO) 0.1 (0.0-0.1); BASOPHILS % 0.6 % (0.0-1.0); EOSINOPHILS # (AUTO) 0.2 (0.0-0.4); EOSINOPHILS % 1.9 % (0.0-6.0); HEMATOCRIT 40.8 % (38.2-49.6); HEMOGLOBIN 12.4 g/dL (14.0-18.0); LYMPHOCYTES # (AUTO) 1.4 (1.0-3.2); LYMPHOCYTES % 14.1 % (18.0-39.1); MEAN CORPUSCULAR HEMOGLOBIN 25.3 pg (28-32); MEAN CORPUSCULAR HGB CONC 30.4 g/dL (31-35); MEAN CORPUSCULAR VOLUME 83.1 fL (81-99); MONOCYTES % 10.1 % (4.4-11.3); NEUTROPHILS # (AUTO) 7.3 (2.1-6.9); NEUTROPHILS % 72.9 % (38.7-80.0); PLATELET COUNT 276 x10e3/uL (140-360); RED BLOOD COUNT 4.91 x10e6/uL (4.3-5.7); RED CELL DISTRIBUTION WIDTH 18.4 % (11.7-14.4)
[2020-06-22 06:30] LABS: ANION GAP 15.3 mmol/L (8-16); CALCIUM 10.2 mg/dL (8.4-10.2); CREATININE, SERUM 1.2 mg/dL (0.72-1.25); POTASSIUM 4.3 mmol/L (3.5-5.1)
[2020-06-22] MEDS: INSULIN REGULAR, HUMAN 100 UNIT/1 ML 3ML VIAL SQ SCH ×2 (07:46→11:34)
[2020-06-22] MEDS: TAMSULOSIN HCL 0.4 MG CAP PO SCH (08:17)
[2020-06-22] MEDS: POTASSIUM CHLORIDE 10MEQ EA PO SCH (08:17)
[2020-06-22] MEDS: DOCUSATE SODIUM 100 MG CAP PO SCH (08:17)
[2020-06-22] MEDS: POLYETHYLENE GLYCOL 3350 17 GM PACK PO SCH (08:21)
[2020-06-22] MEDS: POTASSIUM CHLORIDE 20 MEQ TAB CR PO SCH (08:21)
[2020-06-22] MEDS: OMEGA 3 POLYUNSAT FATTY ACIDS 1000 MG SOFTGEL PO SCH (08:21)
[2020-06-22] MEDS: SIMVASTATIN 40 MG TAB PO SCH (08:21)
[2020-06-22] MEDS: ALLOPURINOL 300 MG TAB PO SCH (08:21)
[2020-06-22] MEDS: VALSARTAN 80 MG TAB PO SCH (08:22)
[2020-06-22 08:30] VITALS: BP 134/74
[2020-06-22] MEDS: INSULIN LISPRO 100 UNIT/1 ML 3ML VIAL SQ SCH (08:50)
[2020-06-22] MEDS: INSULIN GLARGINE 100 UNITS/ML VIAL SQ SCH (08:50)
[2020-06-22 08:56] VITALS: BP 134/74
[2020-06-22] MEDS: METOLAZONE 5 MG TAB PO SCH (09:21)
[2020-06-22] MEDS: BACITRACIN ZINC 15 GM OINT TOP SCH (10:54)
--- NOTE | 2020-06-22 12:00 | NUR ---
Spoke to Dr. Farrell regarding dc plan. States pt's blood sugar still high, will make medication adjustment and monitor another day.
[2020-06-22] MEDS ORDERED: GLIMEPIRIDE 2 MG TAB PO SCH (12:15)
--- NOTE | 2020-06-22 13:09 | NUR ---
EDUCATED ABOUT IMM, SIGNED, FILED IN CHART, WITH COPY LEFT WITH FAMILY AT BEDSIDE.
[2020-06-22 13:21] VITALS: BP 129/73
[2020-06-22] MEDS ORDERED: LEVOFLOXACIN250 MG PO ×2 (13:51→14:57)
[2020-06-22] MEDS ORDERED: BACITRACIN15 GM TOP ×2 (14:00→14:57)
--- NOTE | 2020-06-22 15:28 | NUR ---
Patient discharged home, Alert with no distress. Prescription given. IV canula removed with tip intact, no ss of infiltration, tele box returned , discharge instruction given, patient verbalized understanding. [id number] via wheelchair to front lobby, daughter here to pick him
[2020-06-22] MEDS ORDERED: INSULIN LISPRO 100 UNIT/1 ML 3ML VIAL SQ SCH (17:00)
--- NOTE | 2020-06-22 18:17 | NUR ---
Nutrition Screen Note RD Recommendation for Physician: - Continue current diet as ordered (1800 ADA/cardiac diet) Plan of Care: RD following, monitoring for tolerance and adequacy Nutrition reason for involvement: consult for diabetic diet education Primary Diagnose(s): R lower leg cellulitis and abscess PMH: DM, HTN, CHF, HLD, chronic constipation, CAD, gout, CKD3, DVT Ht: 67 in Wt: 224 lb BMI: 35.1 kg/m2 IBW: [address] Assessment: 06/22: RD received consult for diabetic diet education. Chart reviewed. Pt is eating well with 100% meal intake recorded. RD discussed and provided written materials regarding carbohydrate counting and reading the food label. Pt stated he will also provide information to family to assist him in following the diet Will continue to monitor. (06/17) 74 YOM admitted for R lower leg cellulitis following recent vascular procedure. Pt seen today per MST screen. Pt reports good appetite and po intake currently and [employer]IN[employer]ION[employer]. Pt denies any N/V/C/D. Pt denies any wt loss. Pt declined diet education, reports home health aid has been educated on recommended diet restrictions and does the cooking at home. 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 Pt with no questions or concerns at time of visit. Chart reviewed. Labs and meds reviewed, BG in the 300-500s currently- insulin per MD. Will continue to monitor. Current Diet: Cardiac/1800 ADA Malnutrition Evaluation (06/17/20) The patient does not meet criteria for a specified degree of malnutrition at this time. Will re-evaluate at follow-up as appropriate. Diet Education Needs Assessment: RD received consult for diabetic diet education Learner(s): pt Barriers: no barriers identified Cultural/Language Modifications: no cultural/language modifications Readiness: acceptance Method: explanation/discussion/handout Topics: carbohydrate counting and reading the food label Understanding/Compliance: Will benefit from reinforcement, pt stated he will also provide information to family to assist him in following diet Diet tolerance: tolerating po Nutrition Care Level: low Signed: Naomy De La Torre, RD, LD
[2020-06-22] MEDS ORDERED: INSULIN GLARGINE 100 UNITS/ML VIAL SQ SCH (21:00)
== END 2020-06-22 15:20 | disposition home or self-care (01) | DRG 603 ==
LOC: ER 10:30 → ERHOLD 14:02 → MED/SURG3 19:50 → OBSVTOIN 06-17 09:19
PROVIDERS: ADMIT Internal Medicine; ATTEND Internal Medicine
DX: L03.115 Cellulitis of right lower limb (principal); I13.0 Hypertensive heart and chronic kidney disease with heart failure and stage 1 through stage 4 chronic kidney disease, or unspecified chronic kidney disease; I50.22 Chronic systolic (congestive) heart failure; N17.9 Acute kidney failure, unspecified; I48.20 Chronic atrial fibrillation, unspecified; N18.30 Chronic kidney disease, stage 3 unspecified; E78.5 Hyperlipidemia, unspecified; F17.200 Nicotine dependence, unspecified, uncomplicated; M10.9 Gout, unspecified; Z88.0 Allergy status to penicillin; Z86.718 Personal history of other venous thrombosis and embolism; Z95.5 Presence of coronary angioplasty implant and graft; N40.0 Benign prostatic hyperplasia without lower urinary tract symptoms; E03.9 Hypothyroidism, unspecified; Z79.01 Long term (current) use of anticoagulants; I73.9 Peripheral vascular disease, unspecified; E87.6 Hypokalemia; E66.9 Obesity, unspecified; K59.00 Constipation, unspecified; E11.22 Type 2 diabetes mellitus with diabetic chronic kidney disease; Z20.828 Contact with and (suspected) exposure to other viral communicable diseases
CPT/HCPCS: 36415; 80048; 80053; 80162; 80202; 82550; 82553; 82948; 83605; 83735; 84100; 84443; 84484; 85025; 87040; 87071; 87186; 87205; 93005; 93306; 93971; 96372; 99251; 99285; G0378; J0692; J1817; J1940; J2270; J2405; J3370; J7050; U0002